=== PATIENT | female | born 1955 | race Caucasian/White ===

== ENCOUNTER 2021-04-21 06:30 | Day surgery (SDC) | payer OTHER ==
--- NOTE | 2021-04-17 15:57 | RAD REPORT ---
EXAM DESCRIPTION: Darren Beltrán (2 Views)04/17/2021 3:46 pm CLINICAL HISTORY: Preop for cardiac catheterization. Hypertension COMPARISON: 2017 FINDINGS: The lungs appear clear of acute infiltrate. The heart is normal size. Large hiatal hernia IMPRESSION: No acute abnormalities displayed
[2021-04-17 16:00] LABS: Hematocrit 40.2 % (36.0-45.0); Lymphocytes % 29.6 % (15.3-44.8); RBC Red Blood Cell Count 4.42 M/uL (3.86-4.86)
[2021-04-17 16:10] LABS: Protime INR 1.36
[2021-04-17 16:26] LABS: Potassium 4.1 mmol/L (3.5-5.1)
[2021-04-21] MEDS ORDERED: NA CHLORIDE 0.9% 500 ML ONE (06:50)
[2021-04-21] MEDS ORDERED: HEPA 1000U/500MLS 1,000 UNIT/500 ML BAG IV ONE (07:02)
[2021-04-21] MEDS ORDERED: LIDOCAINE 1% 20 ML MDV ONE (07:02)
[2021-04-21] MEDS ORDERED: FENTANYL CITR 100 MCG/2 ML ONE (07:07)
[2021-04-21] MEDS ORDERED: ATROPINE SULF 1 MG/10 ML SYR IV ONE (07:08)
[2021-04-21] MEDS ORDERED: MIDAZOLAM HCL 2 MG/2 ML INJ ONE ×2 (07:08→07:30)
[2021-04-21] MEDS ORDERED: NA CHLORIDE 0.9% 50 ML ONE (07:09)
[2021-04-21 07:21] VITALS: TEMP 97.9
[2021-04-21 12:49] VITALS: BP 126/61
[2021-04-21 13:24] VITALS: O2SAT 99
--- NOTE | 2021-04-22 07:36 | EKG ---
Test Date: 2021-04-17 Test Time: 15:21:56 Retail General Manager: CHRISTINE MEASUREMENT RESULTS: Intervals: Rate: 59 AK: 192 QRSD: 164 QT: 482 QTc: 477 [place]: P: 68 AK: 192 QRS: -66 T: 167 INTERPRETIVE STATEMENTS: Sinus bradycardia Left axis deviation Left bundle branch block Abnormal ECG Compared to ECG 09/02/2016 07:03:24 Sinus rhythm no longer present Electronically Signed On 04-22-21 07:27:14 [employer] CLERK by Rohit Stockton
== END 2021-04-21 13:25 | disposition home or self-care (01) ==
LOC: CCL 06:30
DX: I25.10 Atherosclerotic heart disease of native coronary artery without angina pectoris (principal); I35.1 Nonrheumatic aortic (valve) insufficiency; I34.0 Nonrheumatic mitral (valve) insufficiency; I48.0 Paroxysmal atrial fibrillation; I42.9 Cardiomyopathy, unspecified; I10 Essential (primary) hypertension; E78.2 Mixed hyperlipidemia; E03.9 Hypothyroidism, unspecified; Z01.810 Encounter for preprocedural cardiovascular examination; Z20.822 Contact with and (suspected) exposure to COVID-19
CPT/HCPCS: 93005; 85025; 80048; 36415; 85610; 85730; 71046; 93458; U0003; C1893; C1760; C1877; J2250; J3010; J0583; J7040; J1644

== ENCOUNTER 2023-10-31 12:41 | Day surgery (SDC) | payer OTHER ==
[2023-10-27 15:00] LABS: Absolute Eosinophils 0.3 K/uL (0-0.5); Absolute Monocytes 0.5 K/uL (0.1-1.3); Absolute Neutrophil 3.3 K/uL (1.8-8.0); Basophils % 0.7 % (0-1.3); Eosinophils % 4.7 % (0-4.4); Hematocrit 42.6 % (36.0-45.0); Lymphocytes % 32.5 % (15.3-44.8); MCH 29.9 pg (27.0-35.0); MCHC 32.9 g/dL (32.0-36.0); MCV 90.8 fL (80-100); MPV 7.8 fL (7.6-11.3); Monocytes % 8.4 % (3.3-12.3); Neutrophils % 53.7 % (41.7-73.7); Platelets 371 thou/uL (152-406); RBC Red Blood Cell Count 4.69 M/uL (3.86-4.86); Red Cell Distribution Width 15.6 % (12.1-15.2)
[2023-10-27 15:13] LABS: PT Prothrombin Time 26.2 SECONDS (9.4-12.5); Protime INR 2.4
[2023-10-27 15:14] LABS: PTT, Activated Partial Thromb 45.5 SECONDS (24.3-36.9)
--- NOTE | 2023-10-27 15:28 | RAD REPORT ---
EXAM DESCRIPTION: Darren Limon [place] (2 Views)10/27/2023 3:05 pm CLINICAL HISTORY: Preop for cardiac catheterization. Hypertension COMPARISON: 2021 FINDINGS: The lungs appear clear of acute infiltrate. The heart is normal size. Moderate hiatal hernia IMPRESSION: No acute abnormalities displayed
[2023-10-31] MEDS ORDERED: NA CHLORIDE 0.9% 500 ML ONE (12:55)
[2023-10-31] MEDS ORDERED: HEPARIN 10,000 UNIT/10 ML VIAL IV ONE (15:04)
[2023-10-31] MEDS ORDERED: LIDOCAINE 1% 20 ML MDV ONE (15:04)
[2023-10-31] MEDS ORDERED: HEPARIN 5000 UNIT/ML 1 ML VIAL ONE (15:04)
[2023-10-31] MEDS ORDERED: HEPA 1000U/500MLS 2,000 UNIT/1,000 ML BAG IV ONE (15:04)
[2023-10-31] MEDS ORDERED: VERAPAMIL HCL 10 MG/4 ML VIAL IV ONE (15:05)
[2023-10-31] MEDS ORDERED: MIDAZOLAM HCL 2 MG/2 ML INJ ONE (15:05)
[2023-10-31] MEDS ORDERED: TICAGRELOR 90 MG TABLET PO ONE (15:06)
[2023-10-31] MEDS ORDERED: FENTANYL CITR 100 MCG/2 ML ONE (15:06)
[2023-10-31] MEDS ORDERED: ASPIRIN 325 MG TAB ONE (15:07)
[2023-10-31] MEDS ORDERED: ATROPINE SULF 1 MG/10 ML SYR IV ONE (15:07)
[2023-10-31] MEDS ORDERED: CLOPIDOGREL 75 MG TABLET ONE (15:07)
[2023-10-31 16:15] VITALS: TEMP 97.9
--- NOTE | 2023-10-31 17:08 | EKG ---
Test Date: 2023-10-27 Test Time: 14:50:57 Maintenance Department Manager: LUCERO MEASUREMENT RESULTS: Intervals: Rate: 81 LA: 194 QRSD: 160 QT: 432 QTc: 501 [place]: P: 57 LA: 194 QRS: -67 T: 104 INTERPRETIVE STATEMENTS: Normal sinus rhythm Left axis deviation Left bundle branch block Abnormal ECG Compared to ECG 04/17/2021 15:21:56 Sinus bradycardia no longer present Electronically Signed On 10-31-23 17:05:34 CDT by Kei Valente
[2023-10-31 17:39] VITALS: BP 163/80; O2SAT 95
--- NOTE | 2023-10-31 21:43 | OP ---
Date of Procedure: 10/31/2023 Surgeon: CHARO DURAN Procedures Performed: 1.Selective angiogram. 2.Left heart catheterization. Indication: Unstable angina. Access: Right radial artery 6-Welsh, closed with TR band. Complications: None. Bleeding: Less than 50 mL. Anesthesia: Total sedation time was 30 minutes, used fentanyl and Versed. Description Of Procedure: After risks, benefits, and alternatives were explained, the patient agreed to the procedure and signed informed consent. The patient was brought into cardiac catheterization laboratory, prepped and draped in sterile fashion. Then, I accessed radial artery using pediatric mi cropuncture kit and placed 6-Welsh Slender sheath and took 5-Welsh [place] 4 catheter into the aortic root across the aortic valve, measured the LVEDP. Pullback did not record any gradient. Then, I en gaged the RCA, took standard views, and then the left main, took standard views, and then removed the catheter and the sheath, placed TR band with good hemostasis. Findings: 1.Left main, large and normal. 2.LAD, large and normal, distally with luminal irregularities. Normal diagonal branches. 3.Left circumflex, small vessel and normal. 4.RCA, large and dominant with proximal 30% to 40% stenosis. Rest of it is normal. 5.Normal LVEDP at 9 mmHg. Conclusions: 1.Mild nonobstructive coronary artery disease. 2.Normal LVEDP. Recommendation: Medical management. SR/MODL Voice ID: [id number] Report ID: [id number]
== END 2023-10-31 17:50 | disposition home or self-care (01) ==
LOC: CCL 12:41
PROVIDERS: ATTEND Internal Medicine
DX: I25.110 Atherosclerotic heart disease of native coronary artery with unstable angina pectoris (principal); I35.1 Nonrheumatic aortic (valve) insufficiency; I34.0 Nonrheumatic mitral (valve) insufficiency; I48.0 Paroxysmal atrial fibrillation; I11.0 Hypertensive heart disease with heart failure; I50.32 Chronic diastolic (congestive) heart failure; I42.9 Cardiomyopathy, unspecified; E78.5 Hyperlipidemia, unspecified; Z87.891 Personal history of nicotine dependence; Z79.01 Long term (current) use of anticoagulants; Z79.899 Other long term (current) drug therapy
CPT/HCPCS: 36415; 71046; 76937; 80048; 85025; 85610; 85730; 93005; 93458; 99152; C1893; J0461; J1644; J2001; J2250; J3010; J7040; Q9966

== ENCOUNTER 2023-12-28 17:16 | Emergency (ER) | payer OTHER ==
--- OUTSIDE RECORDS SUMMARY | 2023-12-28 17:22 | XMS REPORT | Continuity of Care Document ---
Author Name Unknown Address [address] [facility] [address] [place] [address] [facility] [address] [facility] [address] [place] [address] Care Team Providers Care Examination Supervisor Name Role Phone Pcp, Patient Does Not Have A Primary Care Physic marina Augusto Bishop Attending Clinician Unavailable Sonny Muniz Attending Clinician Unav ailgerard VALDIVIA_Price_Myles_ Attending Clinician Unavail able ROSENDO GIPSON Attending Clinician Unavailab Rosendo Chi MD Attending Clinician [phone] Nurse, [facility] Gu Attending Clinician Unanichole march Doctor Unassigned, [place] Attending Clinician U Oswald Donald MD Attending Clinician [phone] Sapna Obrien MD Attending Clinician [phone] SAPNA OBRIEN Attending Clinician Frank ilgerard 2, [facility] Attending Clinician Unavailable VIKTORIA BECK Attending Clinician UnavailCAMILA Velasco Attending Clinician Unavailable OSWALD ALMAZAN Attending Clinician Unavailable ONEL HALL Attending Clinician Unavail able Nurse, [facility] Immunization Attending Clinician Unavailable Gilberto STUBBSOnel Attending Clinician SHAYLEE MENON Attending Clinician Unavailisai christina Nurse, [facility] Attending Clinician Unavailable Shaylee Menon MD Attending Clinician Only, Adc Test Attending Clinician Unavailable Camila Oden MD Attending Clinician [phone] Christiano LEVIN, Silke Ayala Attending Clinician Unavaila ble Only, Ang Db Test Attending Clinician Unavailabl e Unknown, Attending Attending Clinician Unavailab Marietta Durbin Attending Clinician [phone] MARIETTA MATTSON Attending Clinician Unavailab Augusto Noriega Admitting Clinician Unavailable Physician, No Primary or Family Admitting Clinic amrina Unavailable SHEA_Price_Myles_ Admitting Clinician Unavail able ROSENDO GIPSON Admitting Clinician Unavailab Rosendo Chi MD Admitting Clinician [phone] Payers Payer Name Policy Type Policy Number Effective Date Expirati on Date Source [place]IC[place]: [employer] [id number] 2019 00:00:00 [employer] \T\ CASUALTY [id number] MEDICARE PART A \T\ B [id number] 2019 00:00:00 [employer] [id number] 2018 00:00:00 Problems Condition Name Condition Details Condition Category Status Onset Date Resolution Date Last Treatment Date Treating Clinician Comments Source Rupture of rotator cuff of right shoulder Rupture of Rotator Cuff of Right Shoulder Problem Active 2-15 00:00: 00 [facility] Trigger middle finger of right hand Trigger middle finger of right hand Disease Active 9 00:00: 00 [facility] Trigger middle finger of left hand Trigger middle finger of left hand Disease Active 3-24 00:00: 00 Overview: Formattin g of this note might be different from the original. Added automatic ally from request for surgery [id number] 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 Overweight (BMI 25.0-29.9) Overweight (BMI 25.0-29.9) Disease Active 2020-04 0-14 00:00: 00 [facility] Localized swelling, mass and lump, neck Localized swelling, mass and lump, neck Disease Active 2020-04 014 00:00: 00 [facility] Acquired trigger finger of left middle finger Acquired Trigger Finger of Left Middle Finger Problem Active 06 00:00: 00 [facility] Trigger finger of right hand Trigger Finger of Right Hand Problem Active 08-07 00:00: 00 [facility] Screening for diabetes mellitus (DM) Screening for diabetes mellitus (DM) Disease Active 06-07 00:00: 00 [facility] Senile osteoporos is Senile osteoporos is Disease Active 06-07 00:00: 00 [facility] 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 systolic and diastolic congestive heart failure Disease Active 06-03 00:00: 00 [facility] Chronic atrial fibrillati on Chronic atrial fibrillati on Disease Active 06-03 00:00: 00 [facility] Essential hypertensi on Essential hypertensi on Disease Active - 00:00: 00 [facility] Anxiety, generalize d Anxiety, generalize d Disease Active - 00:00: 00 [facility] Acquired hypothyroi dism Acquired hypothyroi dism Disease Active - 00:00: 00 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 Rotator Cuff Arthropath y of Right Shoulder Problem Active 3-24 00:00: 00 [facility] Full thickness rotator cuff tear Full Thickness Rotator Cuff Tear Problem Active 2014-04 00:00: 00 [facility] Repair of hip Repair of Hip Problem Active 2011-04 0 00:00: 00 [facility] Anemia Anemia Problem Active 2011-04 00:00: 00 [facility] Hip pain Hip Pain Problem Active 11-08 00:00: 00 [facility] Situation with explicit context Situation with Explicit Context Problem Active 12-24 00:00: 00 [facility] Allergies, Adverse Reactions, Alerts Allergy Name Allergy Type Status Severity Reaction(s) Onset Date Inactive Date Treating Clinician Comments Source LATEX DRUG INGREDI Active Rash 2022-04 0-03 00:00: 00 [facility] Latex Drug Allergy Active Rash 2022-04 0-03 00:00: 00 Topical from bandaids [facility] adhesive tape DA Active IA 8 00:00: 00 [facility] adhesive tape DA Active IA SKIN TEARS 8 00:00: 00 [facility] No Known Drug Allergie s DA Active U 04-11 00:00: 00 [facility] No Known Drug Allergie s DA Active U 04-11 00:00: 00 [facility] Latex Allergy to substanc e Active [facility] NO KNOWN ALLERGIE S Drug Class Active [facility] Social History Social Habit Start Date Stop Date Quantity Comments Source Gender [facility] SDOH Alcohol Comment [facility] Alcohol intake 2023-01-11 00:00:00 2023-01-11 00:00:00 1.14 /d [facility] History of Social function 2023-01-10 00:00:00 2023-01-10 00:00:00 [facility] Exposure to SARS-CoV-2 (event) 2022-07-16 00:00:00 2022-07-26 13:30:00 Not sure [facility] Tobacco use and exposure 2020-06-03 00:00:00 2020-06-03 00:00:00 Smokeless tobacco non-user [facility] History SDOH Alcohol Frequency 2020-06-03 00:00:00 2020-06-03 00:00:00 5 [facility] History SDOH Alcohol Std Drinks 2020-06-03 00:00:00 2020-06-03 00:00:00 1 [facility] History SDOH Alcohol Binge 2020-06-03 00:00:00 2020-06-03 00:00:00 2 [facility] Sex Assigned At 1955 00:00:00 1955 00:00:00 [facility] Smoking Status Start Date Stop Date Source Unknown if ever smoked [facility] Never smoked tobacco [facility] Medications Ordered Medication Name Filled Medication Name Start Date Stop Date Current Medication? Ordering Clinician Indication Dosage Frequency Signature (SIG) Comments Components Source LORazepam 1 mg tablet 2022-04 13:24: 46 Yes 1mg Take 1 tablet by mouth in the morning and 1 tablet in the evening. [facility] venlafaxine XR 150 mg 24 hr capsule 2022-04 13:24: 46 Yes 150mg Take 1 capsule by mouth in the morning and 1 capsule in the evening. [facility] buPROPion XL 150 mg 24 hr tablet 2022-04 13:24: 46 Yes 150mg Take 1 tablet by mouth in the morning. [facility] rivaroxaban 20 mg tablet 2022-04 13:24: 46 Yes Take by mouth daily. [facility] carvediloL 25 mg tablet 2022-04 13:24: 46 Yes 25mg Take 1 tablet by mouth in the morning and 1 tablet in the evening. Take with meals. [facility] furosemide 20 mg tablet 2022-04 13:24: 46 Yes 20mg Take 1 tablet by mouth in the morning. [facility] amiodarone 200 mg tablet 2022-04 13:24: 46 Yes 200mg Take 1 tablet by mouth in the morning. [facility] sacubitriL- valsartan (ENTRESTO) 24-26 mg tablet 2022-04 13:24: 46 Yes 1{tbl} Take 1 tablet by mouth in the morning and 1 tablet in the evening. [facility] amLODIPine 5 mg tablet 2022-04 13:24: 46 Yes 5mg Take 1 tablet by mouth in the morning. [facility] liothyronin e 5 mcg tablet 2022-04 13:24: 46 Yes 5ug Take 1 tablet by mouth in the morning. [facility] lactated ringers IV infusion 1,000 mL 2022-04 14:45: 00 Yes 1000mL at 75 mL/hr, 1,000 mL, IV Infusion, CONTINUOUS , Starting on Tue01/10/23 at 0945, Until Discontinu ed, Routine, PACU [facility] FENTanyl PF (SUBLIMAZE (PF)) injection 25 mcg 2022-04 14:39: 27 Yes 25ug 25 mcg, Slow IV Push, Q5MIN PRN, 4 doses, Starting on Tue01/10/23 at 0939, Until Discontinu ed, Routine, Pain (scale 4-6), PACU [facility] sodium chloride 0.9 % irrigation solution 2022-04 14:35: 00 01-10 14:46 :49 No PRN, Starting on Tue01/10/23 at 0935, Until Tue01/10/23 at 0946, Intra-op [facility] bupivacaine (preserv free) (SENSORCAIN E MPF) 0.25 % (2.5 mg/mL) 30 mL, lidocaine 1% (PF) (XYLOCAINE) 30 mL 2022-04 14:15: 00 01-10 14:46 :49 No PRN, Starting on Tue01/10/23 at 0915, Intra-op [facility] lactated ringers IV infusion 1,000 mL 2022-04 13:00: 00 01-10 13:12 :00 No 1000mL at 42 mL/hr, 1,000 mL, IV Infusion, ONCE, 1 dose, On Tue01/10/23 at 0800, Routine, DSU Pre-op [facility] LORazepam 1 mg tablet 2022-04 10:49: 14 Yes 1mg Take 1 tablet by mouth in the morning and 1 tablet in the evening. [facility] venlafaxine XR 150 mg 24 hr capsule 2022-04 10:49: 14 Yes 150mg Take 1 capsule by mouth in the morning and 1 capsule in the evening. [facility] buPROPion XL 150 mg 24 hr tablet 2022-04 10:49: 14 Yes 150mg Take 1 tablet by mouth in the morning. [facility] rivaroxaban 20 mg tablet 2022-04 10:49: 14 Yes Take by mouth daily. [facility] carvediloL 25 mg tablet 2022-04 10:49: 14 Yes 25mg Take 1 tablet by mouth in the morning and 1 tablet in the evening. Take with meals. [facility] furosemide 20 mg tablet 2022-04 10:49: 14 Yes 20mg Take 1 tablet by mouth in the morning. [facility] amiodarone 200 mg tablet 2022-04 10:49: 14 Yes 200mg Take 1 tablet by mouth in the morning. [facility] sacubitriL- valsartan (ENTRESTO) 24-26 mg tablet 2022-04 10:49: 14 Yes 1{tbl} Take 1 tablet by mouth in the morning and 1 tablet in the evening. [facility] amLODIPine 5 mg tablet 2022-04 10:49: 14 Yes 5mg Take 1 tablet by mouth in the morning. [facility] liothyronin e 5 mcg tablet 2022-04 10:49: 14 Yes 5ug Take 1 tablet by mouth in the morning. [facility] ondansetron 4 mg tablet 2022-04 00:00: 00 01-16 04:59 :00 No [id number] 4mg Take 1 tablet by mouth every 8 (eight) hours as needed for Nausea and Vomiting (N/V) for up to [address] [facility] traMADoL 50 mg tablet 2022-04 00:00: 00 01-14 04:59 :00 No [id number] 100mg Take 2 tablets by mouth every 6 (six) hours as needed for Pain (scale 7-10) (Can take 1-2 tablets every 6 hours as needed for pain, not to exceed 400mg in one day .) for up to 3 days. Indication s: acute pain [facility] rivaroxaban 20 mg tablet 12-27 14:49: 29 Yes Take by mouth daily. [facility] carvediloL 25 mg tablet 12-27 14:49: 29 Yes 25mg Take 1 tablet by mouth in the morning and 1 tablet in the evening. Take with meals. [facility] amiodarone 200 mg tablet 12-27 14:49: 29 Yes 200mg Take 1 tablet by mouth in the morning. [facility] LORazepam 1 mg tablet 10-18 13:17: 17 Yes 1mg Take 1 tablet by mouth in the morning and 1 tablet in the evening. [facility] venlafaxine XR 150 mg 24 hr capsule 10-18 13:17: 17 Yes 150mg Take 1 capsule by mouth daily with breakfast. [facility] buPROPion XL 150 mg 24 hr tablet 10-18 13:17: 17 Yes 150mg Take 1 tablet by mouth in the morning. [facility] furosemide 40 mg tablet 10-18 13:17: 17 Yes 40mg Take 1 tablet by mouth in the morning. [facility] sacubitriL- valsartan (ENTRESTO) 24-26 mg tablet 17 13:17: 17 Yes 1{tbl} Take 1 tablet by mouth in the morning and 1 tablet in the evening. [facility] lactated ringers IV infusion 1,000 mL 07-12 16:00: 00 Yes 1000mL at 100 mL/hr, 1,000 mL, IV Infusion, CONTINUOUS , Starting on Tue07/12/22 at 1100, Until Discontinu ed, Routine, PACU [facility] HYDROcodone -acetaminop hen (NORCO 5) 5-325 mg tablet 1 tablet 07-12 16:00: 00 07-12 15:55 :00 No 1{tbl} 1 tablet, Oral, ONCE, 1 dose, On Tue07/12/22 at 1100, Routine, PACU [facility] HYDROmorphO ne (DILAUDID) injection 0.2 mg 07-12 15:50: 09 Yes .2mg 0.2 mg, Slow IV Push, Q5MIN PRN, 10 doses, Starting on Tue07/12/22 at 1050, Until Discontinu ed, Routine, Pain (scale 7-10), PACU
Us e approved by (Faculty): PACU USE -ANESTHESI A SERVICE-HY DROMORPHON E INJECTIONS [facility] FENTanyl PF (SUBLIMAZE (PF)) injection 25 mcg 07-12 15:50: 09 Yes 25ug 25 mcg, Slow IV Push, Q5MIN PRN, 4 doses, Starting on Tue07/12/22 at 1050, Until Discontinu ed, Routine, Pain (scale 4-6), PACU [facility] ondansetron (ZOFRAN (PF)) injection 4 mg 07-12 15:50: 09 Yes 4mg 4 mg, Slow IV Push, PRN, 1 dose, Starting on Tue07/12/22 at 1050, Until Discontinu ed, Routine, Nausea and Vomiting (N/V), PACU [facility] sodium chloride 0.9 % irrigation solution 07-12 15:03: 00 07-12 16:02 :35 No PRN, Starting on Tue07/12/22 at 1003, Until Tue07/12/22 at 1102, Intra-op [facility] bupivacaine (preserv free) (SENSORCAIN E MPF) 0.25 % (2.5 mg/mL) 3 mL, lidocaine 1% (PF) (XYLOCAINE) 7 mL 07-12 15:00: 00 07-12 16:02 :35 No PRN, Starting on Tue07/12/22 at 1000, Intra-op [facility] lactated ringers IV infusion 1,000 mL 07-12 14:30: 00 07-12 14:36 :00 No 1000mL at 42 mL/hr, 1,000 mL, IV Infusion, ONCE, 1 dose, On Tue07/12/22 at 0930, Routine, DSU Pre-op [facility] LORazepam 1 mg tablet 07-12 11:41: 51 Yes 1mg Take 1 tablet by mouth in the morning and 1 tablet in the evening. [facility] venlafaxine XR 150 mg 24 hr capsule 07-12 11:41: 51 Yes 150mg Take 1 capsule by mouth daily with breakfast. [facility] buPROPion XL 150 mg 24 hr tablet 07-12 11:41: 51 Yes 150mg Take 1 tablet by mouth in the morning. [facility] rivaroxaban 20 mg tablet 07-12 11:41: 51 Yes Take by mouth daily. [facility] carvediloL 25 mg tablet 07-12 11:41: 51 Yes 25mg Take 1 tablet by mouth in the morning and 1 tablet in the evening. Take with meals. [facility] furosemide 40 mg tablet 07-12 11:41: 51 Yes 40mg Take 1 tablet by mouth in the morning. [facility] amiodarone 200 mg tablet 07-12 11:41: 51 Yes 200mg Take 1 tablet by mouth in the morning. [facility] sacubitriL- valsartan (ENTRESTO) 24-26 mg tablet 07-12 11:41: 51 Yes 1{tbl} Take 1 tablet by mouth in the morning and 1 tablet in the evening. [facility] traMADoL 50 mg tablet 07-12 00:00: 00 01-10 00:00 :00 No [id number] 50mg Take 1 tablet by mouth every 6 (six) hours as needed for Pain (scale 4-6) for up to 10 doses. Indication s: acute pain [facility] triamcinolo ne acetonide (KENALOG) injection 10 mg 06-01 02:30: 00 06-01 01:47 :00 No [id number] 10mg [facility] LORazepam 1 mg tablet 2021-04 13:52: 32 Yes 1mg Take 1 mg by mouth 2 (two) times daily. [facility] venlafaxine XR 150 mg 24 hr capsule 2021-04 13:52: 32 Yes 150mg Take 150 mg by mouth daily with breakfast. [facility] buPROPion XL 150 mg 24 hr tablet 2021-04 13:52: 32 Yes 150mg Take 150 mg by mouth daily. [facility] rivaroxaban 20 mg tablet 2021-04 13:52: 32 Yes Take by mouth daily. [facility] carvediloL 25 mg tablet 2021-04 13:52: 32 Yes 25mg Take 25 mg by mouth 2 (two) times daily with meals. [facility] furosemide 40 mg tablet 2021-04 13:52: 32 Yes 40mg Take 40 mg by mouth daily. [facility] amiodarone 200 mg tablet 2021-04 13:52: 32 Yes 200mg Take 200 mg by mouth daily. [facility] sacubitriL- valsartan (ENTRESTO) 24-26 mg tablet 2021-04 13:52: 32 Yes 1{tbl} Take 1 tablet by mouth 2 (two) times daily. [facility] levothyroxi ne 100 mcg tablet 09-14 00:00: 00 Yes [id number] 100ug Take 1 tablet by mouth every morning. [facility] venlafaxine XR (EFFEXOR XR) 150 mg 24 hr capsule 06-05 15:25: 15 Yes 150mg Take 150 mg by mouth daily with breakfast. [facility] sacubitriL- valsartan (ENTRESTO) 24-26 mg tablet 06-05 15:25: 14 Yes 1{tbl} Take 1 tablet by mouth 2 (two) times daily. [facility] rivaroxaban (XARELTO) 20 mg tablet 06-05 15:25: 14 Yes Take by mouth daily. [facility] LORazepam 1 mg tablet 06-05 15:25: 12 Yes 1mg Take 1 mg by mouth 2 (two) times daily. [facility] furosemide (LASIX) 40 mg tablet 06-05 15:25: 10 Yes 40mg Take 40 mg by mouth daily. [facility] carvediloL 25 mg tablet 06-05 15:25: 08 Yes 25mg Take 25 mg by mouth 2 (two) times daily with meals. [facility] buPROPion XL 150 mg 24 hr tablet 06-05 15:25: 06 Yes 150mg Take 150 mg by mouth daily. [facility] amiodarone 200 mg tablet 06-05 15:25: 00 Yes 200mg Take 200 mg by mouth daily. [facility] Nitrofurant oin&Nit. Macrocryst (MACROBID) 100 mg capsule 2020-04 00:00: 00 06-05 00:00 :00 No [id number] 100mg Take 1 capsule by mouth 2 (two) times daily. [facility] fluticasone propionate 50 mcg/actuati on nasal spray 2020-04 00:00: 00 06-05 00:00 :00 No [id number] 2{spray } Use 2 Sprays in each nostril daily. [facility] levothyroxi ne 100 mcg tablet 2020-04 00:00: 00 09-14 00:00 :00 No [id number] 9106 100ug Take 1 tablet by mouth every morning. [facility] Effexor XR 150 mg capsule,ext ended release RX by other Effexor XR 150 mg capsule,ext ended release RX by other MD [facility] Effexor XR 150 mg capsule,ex tended release RX by other MD [facility] ferrous gluconate 236 mg (27 mg iron) tablet RX by other ferrous gluconate 236 mg (27 mg iron) tablet RX by other No ferrous gluconate 236 mg (27 mg iron) tablet RX by other MD [facility] levothyroxi ne 112 mcg tablet RX by other levothyroxi ne 112 mcg tablet RX by other No levothyrox ine 112 mcg tablet RX by other MD [facility] losartan 100 mg-hydrochl orothiazide 25 mg tablet RX by other losartan 100 mg-hydrochl orothiazide 25 mg tablet RX by other MD [facility] losartan 100 mg-hydroch lorothiazi de 25 mg tablet RX by other MD [facility] omeprazole 20 mg tablet,butch yed release RX by other omeprazole 20 mg tablet,butch yed release RX by other MD [facility] omeprazole 20 mg tablet,del ayed release RX by other MD [facility] Effexor XR 150 mg capsule,ext ended release RX by other Effexor XR 150 mg capsule,ext ended release RX by other MD [facility] Effexor XR 150 mg capsule,ex tended release RX by other MD [facility] ferrous gluconate 236 mg (27 mg iron) tablet RX by other ferrous gluconate 236 mg (27 mg iron) tablet RX by other MD [facility] ferrous gluconate 236 mg (27 mg iron) tablet RX by other MD [facility] levothyroxi ne 112 mcg tablet RX by other levothyroxi ne 112 mcg tablet RX by other No levothyrox ine 112 mcg tablet RX by other MD [facility] losartan 100 mg-hydrochl orothiazide 25 mg tablet RX by other losartan 100 mg-hydrochl orothiazide 25 mg tablet RX by other MD No losartan 100 mg-hydroch lorothiazi de 25 mg tablet RX by other MD [facility] omeprazole 20 mg tablet,butch yed release RX by other omeprazole 20 mg tablet,butch yed release RX by other No omeprazole 20 mg tablet,del ayed release RX by other MD [facility] amlodipine 5 mg tablet RX by other amlodipine 5 mg tablet RX by other No amlodipine 5 mg tablet RX by other MD [facility] Effexor XR 150 mg capsule,ext ended release RX by other Effexor XR 150 mg capsule,ext ended release RX by other No Effexor XR 150 mg capsule,ex tended release RX by other MD [facility] ferrous gluconate 236 mg (27 mg iron) tablet RX by other ferrous gluconate 236 mg (27 mg iron) tablet RX by other No ferrous gluconate 236 mg (27 mg iron) tablet RX by other MD [facility] levothyroxi ne 112 mcg tablet RX by other levothyroxi ne 112 mcg tablet RX by other No levothyrox ine 112 mcg tablet RX by other MD [facility] losartan 100 mg-hydrochl orothiazide 25 mg tablet RX by other losartan 100 mg-hydrochl orothiazide 25 mg tablet RX by other No losartan 100 mg-hydroch lorothiazi de 25 mg tablet RX by other MD [facility] omeprazole 20 mg tablet,butch yed release RX by other omeprazole 20 mg tablet,butch yed release RX by other No omeprazole 20 mg tablet,del ayed release RX by other MD [facility] Immunizations Ordered Immunization Name Filled Immunization Name Date Status Comments Source SARS-COV-2 COVID-19 MODERNA 0.25ML BOOSTER VACCINE 2021-02-06 00:00:00 Completed [facility] SARS-COV-2 COVID-19 MODERNA 0.25ML BOOSTER VACCINE 2021-02-06 00:00:00 Completed [facility] SARS-COV-2 COVID-19 MODERNA 0.25ML BOOSTER VACCINE 2021-02-06 00:00:00 Completed [facility] SARS-COV-2 COVID-19 MODERNA 0.25ML BOOSTER VACCINE 2021-02-06 00:00:00 Completed [facility] SARS-COV-2 COVID-19 MODERNA 0.25ML BOOSTER VACCINE 2021-02-06 00:00:00 Completed [facility] SARS-COV-2 COVID-19 MODERNA 0.25ML BOOSTER VACCINE 2021-02-06 00:00:00 Completed [facility] SARS-COV-2 COVID-19 MODERNA 0.25ML BOOSTER VACCINE 2021-02-06 00:00:00 Completed [facility] SARS-COV-2 COVID-19 MODERNA 0.25ML BOOSTER VACCINE 2021-02-06 00:00:00 Completed [facility] SARS-COV-2 COVID-19 MODERNA 0.25ML BOOSTER VACCINE 2021-02-06 00:00:00 Completed [facility] SARS-COV-2 COVID-19 MODERNA 0.25ML BOOSTER VACCINE 2021-02-06 00:00:00 Completed [facility] SARS-COV-2 COVID-19 MODERNA 0.25ML BOOSTER VACCINE 2021-02-06 00:00:00 Completed [facility] SARS-COV-2 COVID-19 MODERNA 0.25ML BOOSTER VACCINE 2021-02-06 00:00:00 Completed [facility] SARS-COV-2 COVID-19 MODERNA 0.25ML BOOSTER VACCINE 2021-02-06 00:00:00 Completed [facility] SARS-COV-2 COVID-19 MODERNA 0.25ML BOOSTER VACCINE 2021-02-06 00:00:00 Completed [facility] SARS-COV-2 COVID-19 MODERNA 0.25ML BOOSTER VACCINE 2021-02-06 00:00:00 Completed [facility] SARS-COV-2 COVID-19 MODERNA 0.25ML BOOSTER VACCINE 2021-02-06 00:00:00 Completed [facility] SARS-COV-2 COVID-19 MODERNA 0.25ML BOOSTER VACCINE 2021-02-06 00:00:00 Completed [facility] SARS-COV-2 COVID-19 MODERNA 0.25ML BOOSTER VACCINE 2021-02-06 00:00:00 Completed [facility] SARS-COV-2 COVID-19 MODERNA 0.25ML BOOSTER VACCINE 2021-02-06 00:00:00 Completed [facility] SARS-COV-2 COVID-19 MODERNA 0.25ML BOOSTER VACCINE 2021-02-06 00:00:00 Completed [facility] SARS-COV-2 COVID-19 MODERNA 0.25ML BOOSTER VACCINE 2021-02-06 00:00:00 Completed [facility] SARS-COV-2 COVID-19 MODERNA 0.25ML BOOSTER VACCINE 2021-02-06 00:00:00 Completed [facility] SARS-COV-2 COVID-19 MODERNA 0.25ML BOOSTER VACCINE 2021-02-06 00:00:00 Completed [facility] SARS-COV-2 COVID-19 MODERNA 0.25ML BOOSTER VACCINE 2021-02-06 00:00:00 Completed [facility] SARS-COV-2 COVID-19 MODERNA 0.25ML BOOSTER VACCINE 2021-02-06 00:00:00 Completed [facility] SARS-COV-2 COVID-19 MODERNA 0.25ML BOOSTER VACCINE 2021-02-06 00:00:00 Completed [facility] SARS-COV-2 COVID-19 MODERNA 0.25ML BOOSTER VACCINE 2021-02-06 00:00:00 Completed [facility] SARS-COV-2 COVID-19 MODERNA 0.25ML BOOSTER VACCINE 2021-02-06 00:00:00 Completed [facility] SARS-COV-2 COVID-19 MODERNA 0.25ML BOOSTER VACCINE 2021-02-06 00:00:00 Completed [facility] SARS-COV-2 COVID-19 MODERNA 0.25ML BOOSTER VACCINE 2021-02-06 00:00:00 Completed [facility] SARS-COV-2 COVID-19 MODERNA 0.25ML BOOSTER VACCINE 2021-02-06 00:00:00 Completed [facility] SARS-COV-2 COVID-19 MODERNA 0.25ML BOOSTER VACCINE 2021-02-06 00:00:00 Completed [facility] SARS-COV-2 COVID-19 MODERNA 0.25ML BOOSTER VACCINE 2021-02-06 00:00:00 Completed [facility] SARS-COV-2 COVID-19 MODERNA BOOSTER VACCINE 2021-02-06 00:00:00 Completed [facility] SARS-COV-2 COVID-19 MODERNA BOOSTER VACCINE 2021-02-06 00:00:00 Completed [facility] SARS-COV-2 COVID-19 MODERNA 0.25ML BOOSTER VACCINE 2021-02-06 00:00:00 Completed [facility] SARS-COV-2 COVID-19 MODERNA 0.25ML BOOSTER VACCINE 2021-02-06 00:00:00 Completed [facility] SARS-COV-2 COVID-19 MODERNA 0.25ML BOOSTER VACCINE 2021-02-06 00:00:00 Completed [facility] SARS-COV-2 COVID-19 MODERNA 0.25ML BOOSTER VACCINE 2021-02-06 00:00:00 Completed [facility] Influenza High Dose 2021-01-01 00:00:00 Completed [facility] Influenza High Dose 2021-01-01 00:00:00 Completed [facility] Influenza High Dose 2021-01-01 00:00:00 Completed [facility] Influenza High Dose 2021-01-01 00:00:00 Completed [facility] Influenza High Dose 2021-01-01 00:00:00 Completed [facility] Influenza High Dose 2021-01-01 00:00:00 Completed [facility] Influenza High Dose 2021-01-01 00:00:00 Completed [facility] Influenza High Dose 2021-01-01 00:00:00 Completed [facility] Influenza High Dose 2021-01-01 00:00:00 Completed [facility] Influenza High Dose 2021-01-01 00:00:00 Completed [facility] Influenza High Dose 2021-01-01 00:00:00 Completed [facility] Influenza High Dose 2021-01-01 00:00:00 Completed [facility] Influenza High Dose 2021-01-01 00:00:00 Completed [facility] Influenza High Dose 2021-01-01 00:00:00 Completed [facility] Influenza High Dose 2021-01-01 00:00:00 Completed [facility] Influenza High Dose 2021-01-01 00:00:00 Completed [facility] Influenza High Dose 2021-01-01 00:00:00 Completed [facility] Influenza High Dose 2021-01-01 00:00:00 Completed [facility] Influenza High Dose 2021-01-01 00:00:00 Completed [facility] Influenza High Dose 2021-01-01 00:00:00 Completed [facility] Influenza High Dose 2021-01-01 00:00:00 Completed [facility] Influenza High Dose 2021-01-01 00:00:00 Completed [facility] Influenza High Dose 2021-01-01 00:00:00 Completed [facility] Influenza High Dose 2021-01-01 00:00:00 Completed [facility] Influenza High Dose 2021-01-01 00:00:00 Completed [facility] Influenza High Dose 2021-01-01 00:00:00 Completed [facility] Influenza High Dose 2021-01-01 00:00:00 Completed [facility] Influenza High Dose 2021-01-01 00:00:00 Completed [facility] Influenza High Dose 2021-01-01 00:00:00 Completed [facility] Influenza High Dose 2021-01-01 00:00:00 Completed [facility] Influenza High Dose 2021-01-01 00:00:00 Completed [facility] Influenza High Dose 2021-01-01 00:00:00 Completed [facility] Influenza High Dose 2021-01-01 00:00:00 Completed [facility] Influenza High Dose 2021-01-01 00:00:00 Completed [facility] Influenza High Dose 2021-01-01 00:00:00 Completed [facility] Influenza High Dose 2021-01-01 00:00:00 Completed [facility] Influenza High Dose 2021-01-01 00:00:00 Completed [facility] Influenza High Dose 2021-01-01 00:00:00 Completed [facility] Influenza High Dose 2021-01-01 00:00:00 Completed [facility] SARS-COV-2 COVID-19 MODERNA 12+ YRS VACCINE 2020-06-23 00:00:00 Completed [facility] SARS-COV-2 COVID-19 MODERNA 12+ YRS VACCINE 2020-06-23 00:00:00 Completed [facility] SARS-COV-2 COVID-19 MODERNA 12+ YRS VACCINE 2020-06-23 00:00:00 Completed [facility] SARS-COV-2 COVID-19 MODERNA 12+ YRS VACCINE 2020-06-23 00:00:00 Completed [facility] SARS-COV-2 COVID-19 MODERNA 12+ YRS VACCINE 2020-06-23 00:00:00 Completed [facility] SARS-COV-2 COVID-19 MODERNA 12+ YRS VACCINE 2020-06-23 00:00:00 Completed [facility] SARS-COV-2 COVID-19 MODERNA 12+ YRS VACCINE 2020-06-23 00:00:00 Completed [facility] SARS-COV-2 COVID-19 MODERNA 12+ YRS VACCINE 2020-06-23 00:00:00 Completed [facility] SARS-COV-2 COVID-19 MODERNA 12+ YRS VACCINE 2020-06-23 00:00:00 Completed [facility] SARS-COV-2 COVID-19 MODERNA 12+ YRS VACCINE 2020-06-23 00:00:00 Completed [facility] SARS-COV-2 COVID-19 MODERNA 12+ YRS VACCINE 2020-06-23 00:00:00 Completed [facility] SARS-COV-2 COVID-19 MODERNA 12+ YRS VACCINE 2020-06-23 00:00:00 Completed [facility] SARS-COV-2 COVID-19 MODERNA 12+ YRS VACCINE 2020-06-23 00:00:00 Completed [facility] SARS-COV-2 COVID-19 MODERNA 12+ YRS VACCINE 2020-06-23 00:00:00 Completed [facility] SARS-COV-2 COVID-19 MODERNA 12+ YRS VACCINE 2020-06-23 00:00:00 Completed [facility] SARS-COV-2 COVID-19 MODERNA 12+ YRS VACCINE 2020-06-23 00:00:00 Completed [facility] SARS-COV-2 COVID-19 MODERNA 12+ YRS VACCINE 2020-06-23 00:00:00 Completed [facility] SARS-COV-2 COVID-19 MODERNA 12+ YRS VACCINE 2020-06-23 00:00:00 Completed [facility] SARS-COV-2 COVID-19 MODERNA 12+ YRS VACCINE 2020-06-23 00:00:00 Completed [facility] SARS-COV-2 COVID-19 MODERNA 12+ YRS VACCINE 2020-06-23 00:00:00 Completed [facility] SARS-COV-2 COVID-19 MODERNA 12+ YRS VACCINE 2020-06-23 00:00:00 Completed [facility] SARS-COV-2 COVID-19 MODERNA 12+ YRS VACCINE 2020-06-23 00:00:00 Completed [facility] SARS-COV-2 COVID-19 MODERNA 12+ YRS VACCINE 2020-06-23 00:00:00 Completed [facility] SARS-COV-2 COVID-19 MODERNA 12+ YRS VACCINE 2020-06-23 00:00:00 Completed [facility] SARS-COV-2 COVID-19 MODERNA 12+ YRS VACCINE 2020-06-23 00:00:00 Completed [facility] SARS-COV-2 COVID-19 MODERNA 12+ YRS VACCINE 2020-06-23 00:00:00 Completed [facility] SARS-COV-2 COVID-19 MODERNA 12+ YRS VACCINE 2020-06-23 00:00:00 Completed [facility] SARS-COV-2 COVID-19 MODERNA 12+ YRS VACCINE 2020-06-23 00:00:00 Completed [facility] SARS-COV-2 COVID-19 MODERNA 12+ YRS VACCINE 2020-06-23 00:00:00 Completed [facility] SARS-COV-2 COVID-19 MODERNA 12+ YRS VACCINE 2020-06-23 00:00:00 Completed [facility] SARS-COV-2 COVID-19 MODERNA 12+ YRS VACCINE 2020-06-23 00:00:00 Completed [facility] SARS-COV-2 COVID-19 MODERNA 12+ YRS VACCINE 2020-06-23 00:00:00 Completed [facility] SARS-COV-2 COVID-19 MODERNA 12+ YRS VACCINE 2020-06-23 00:00:00 Completed [facility] SARS-COV-2 COVID-19 MODERNA VACCINE 2020-06-23 00:00:00 Completed [facility] SARS-COV-2 COVID-19 MODERNA VACCINE 2020-06-23 00:00:00 Completed [facility] SARS-COV-2 COVID-19 MODERNA VACCINE 2020-06-23 00:00:00 Completed [facility] SARS-COV-2 COVID-19 MODERNA VACCINE 2020-06-23 00:00:00 Completed [facility] SARS-COV-2 COVID-19 MODERNA 12+ YRS VACCINE 2020-06-23 00:00:00 Completed [facility] SARS-COV-2 COVID-19 MODERNA 12+ YRS VACCINE 2020-06-23 00:00:00 Completed [facility] SARS-COV-2 COVID-19 MODERNA 12+ YRS VACCINE 2020-05-28 00:00:00 Completed [facility] SARS-COV-2 COVID-19 MODERNA 12+ YRS VACCINE 2020-05-28 00:00:00 Completed [facility] SARS-COV-2 COVID-19 MODERNA 12+ YRS VACCINE 2020-05-28 00:00:00 Completed [facility] SARS-COV-2 COVID-19 MODERNA 12+ YRS VACCINE 2020-05-28 00:00:00 Completed [facility] SARS-COV-2 COVID-19 MODERNA 12+ YRS VACCINE 2020-05-28 00:00:00 Completed [facility] SARS-COV-2 COVID-19 MODERNA 12+ YRS VACCINE 2020-05-28 00:00:00 Completed [facility] SARS-COV-2 COVID-19 MODERNA 12+ YRS VACCINE 2020-05-28 00:00:00 Completed [facility] SARS-COV-2 COVID-19 MODERNA 12+ YRS VACCINE 2020-05-28 00:00:00 Completed [facility] SARS-COV-2 COVID-19 MODERNA 12+ YRS VACCINE 2020-05-28 00:00:00 Completed [facility] SARS-COV-2 COVID-19 MODERNA 12+ YRS VACCINE 2020-05-28 00:00:00 Completed [facility] SARS-COV-2 COVID-19 MODERNA 12+ YRS VACCINE 2020-05-28 00:00:00 Completed [facility] SARS-COV-2 COVID-19 MODERNA 12+ YRS VACCINE 2020-05-28 00:00:00 Completed [facility] SARS-COV-2 COVID-19 MODERNA 12+ YRS VACCINE 2020-05-28 00:00:00 Completed [facility] SARS-COV-2 COVID-19 MODERNA 12+ YRS VACCINE 2020-05-28 00:00:00 Completed [facility] SARS-COV-2 COVID-19 MODERNA 12+ YRS VACCINE 2020-05-28 00:00:00 Completed [facility] SARS-COV-2 COVID-19 MODERNA 12+ YRS VACCINE 2020-05-28 00:00:00 Completed [facility] SARS-COV-2 COVID-19 MODERNA 12+ YRS VACCINE 2020-05-28 00:00:00 Completed [facility] SARS-COV-2 COVID-19 MODERNA 12+ YRS VACCINE 2020-05-28 00:00:00 Completed [facility] SARS-COV-2 COVID-19 MODERNA 12+ YRS VACCINE 2020-05-28 00:00:00 Completed [facility] SARS-COV-2 COVID-19 MODERNA 12+ YRS VACCINE 2020-05-28 00:00:00 Completed [facility] SARS-COV-2 COVID-19 MODERNA 12+ YRS VACCINE 2020-05-28 00:00:00 Completed [facility] SARS-COV-2 COVID-19 MODERNA 12+ YRS VACCINE 2020-05-28 00:00:00 Completed [facility] SARS-COV-2 COVID-19 MODERNA 12+ YRS VACCINE 2020-05-28 00:00:00 Completed [facility] SARS-COV-2 COVID-19 MODERNA 12+ YRS VACCINE 2020-05-28 00:00:00 Completed [facility] SARS-COV-2 COVID-19 MODERNA 12+ YRS VACCINE 2020-05-28 00:00:00 Completed [facility] SARS-COV-2 COVID-19 MODERNA 12+ YRS VACCINE 2020-05-28 00:00:00 Completed [facility] SARS-COV-2 COVID-19 MODERNA 12+ YRS VACCINE 2020-05-28 00:00:00 Completed [facility] SARS-COV-2 COVID-19 MODERNA 12+ YRS VACCINE 2020-05-28 00:00:00 Completed [facility] SARS-COV-2 COVID-19 MODERNA 12+ YRS VACCINE 2020-05-28 00:00:00 Completed [facility] SARS-COV-2 COVID-19 MODERNA 12+ YRS VACCINE 2020-05-28 00:00:00 Completed [facility] SARS-COV-2 COVID-19 MODERNA 12+ YRS VACCINE 2020-05-28 00:00:00 Completed [facility] SARS-COV-2 COVID-19 MODERNA 12+ YRS VACCINE 2020-05-28 00:00:00 Completed [facility] SARS-COV-2 COVID-19 MODERNA 12+ YRS VACCINE 2020-05-28 00:00:00 Completed [facility] SARS-COV-2 COVID-19 MODERNA VACCINE 2020-05-28 00:00:00 Completed [facility] SARS-COV-2 COVID-19 MODERNA VACCINE 2020-05-28 00:00:00 Completed [facility] SARS-COV-2 COVID-19 MODERNA VACCINE 2020-05-28 00:00:00 Completed [facility] SARS-COV-2 COVID-19 MODERNA VACCINE 2020-05-28 00:00:00 Completed [facility] SARS-COV-2 COVID-19 MODERNA 12+ YRS VACCINE 2020-05-28 00:00:00 Completed [facility] SARS-COV-2 COVID-19 MODERNA 12+ YRS VACCINE 2020-05-28 00:00:00 Completed [facility] SARS-COV-2 COVID-19 MODERNA 12+ YRS VACCINE 2020-05-27 00:00:00 Completed [facility] SARS-COV-2 COVID-19 MODERNA 12+ YRS VACCINE 2020-05-27 00:00:00 Completed [facility] SARS-COV-2 COVID-19 MODERNA 12+ YRS VACCINE 2020-05-27 00:00:00 Completed [facility] SARS-COV-2 COVID-19 MODERNA 12+ YRS VACCINE 2020-05-27 00:00:00 Completed [facility] SARS-COV-2 COVID-19 MODERNA 12+ YRS VACCINE 2020-05-27 00:00:00 Completed [facility] SARS-COV-2 COVID-19 MODERNA 12+ YRS VACCINE 2020-05-27 00:00:00 Completed [facility] SARS-COV-2 COVID-19 MODERNA 12+ YRS VACCINE 2020-05-27 00:00:00 Completed [facility] SARS-COV-2 COVID-19 MODERNA VACCINE 2020-05-27 00:00:00 Completed [facility] SARS-COV-2 COVID-19 MODERNA VACCINE 2020-05-27 00:00:00 Completed [facility] SARS-COV-2 COVID-19 MODERNA VACCINE 2020-05-27 00:00:00 Completed [facility] SARS-COV-2 COVID-19 MODERNA VACCINE 2020-05-27 00:00:00 Completed [facility] SARS-COV-2 COVID-19 MODERNA 12+ YRS VACCINE 2020-05-27 00:00:00 Completed [facility] SARS-COV-2 COVID-19 MODERNA 12+ YRS VACCINE 2020-05-27 00:00:00 Completed [facility] SARS-COV-2 COVID-19 MODERNA 12+ YRS VACCINE 2020-05-27 00:00:00 Completed [facility] SARS-COV-2 COVID-19 MODERNA 12+ YRS VACCINE 2020-05-27 00:00:00 Completed [facility] SARS-COV-2 COVID-19 MODERNA 12+ YRS VACCINE 2020-05-27 00:00:00 Completed [facility] SARS-COV-2 COVID-19 MODERNA 12+ YRS VACCINE 2020-05-27 00:00:00 Completed [facility] SARS-COV-2 COVID-19 MODERNA 12+ YRS VACCINE 2020-05-27 00:00:00 Completed [facility] SARS-COV-2 COVID-19 MODERNA 12+ YRS VACCINE 2020-05-27 00:00:00 Completed [facility] SARS-COV-2 COVID-19 MODERNA 12+ YRS VACCINE 2020-05-27 00:00:00 Completed [facility] SARS-COV-2 COVID-19 MODERNA 12+ YRS VACCINE 2020-05-27 00:00:00 Completed [facility] SARS-COV-2 COVID-19 MODERNA 12+ YRS VACCINE 2020-05-27 00:00:00 Completed [facility] SARS-COV-2 COVID-19 MODERNA 12+ YRS VACCINE 2020-05-27 00:00:00 Completed [facility] SARS-COV-2 COVID-19 MODERNA 12+ YRS VACCINE 2020-05-27 00:00:00 Completed [facility] SARS-COV-2 COVID-19 MODERNA 12+ YRS VACCINE 2020-05-27 00:00:00 Completed [facility] SARS-COV-2 COVID-19 MODERNA 12+ YRS VACCINE 2020-05-27 00:00:00 Completed [facility] SARS-COV-2 COVID-19 MODERNA 12+ YRS VACCINE 2020-05-27 00:00:00 Completed [facility] SARS-COV-2 COVID-19 MODERNA 12+ YRS VACCINE 2020-05-27 00:00:00 Completed [facility] SARS-COV-2 COVID-19 MODERNA 12+ YRS VACCINE 2020-05-27 00:00:00 Completed [facility] SARS-COV-2 COVID-19 MODERNA 12+ YRS VACCINE 2020-05-27 00:00:00 Completed [facility] SARS-COV-2 COVID-19 MODERNA 12+ YRS VACCINE 2020-05-27 00:00:00 Completed [facility] SARS-COV-2 COVID-19 MODERNA 12+ YRS VACCINE 2020-05-27 00:00:00 Completed [facility] SARS-COV-2 COVID-19 MODERNA 12+ YRS VACCINE 2020-05-27 00:00:00 Completed [facility] SARS-COV-2 COVID-19 MODERNA 12+ YRS VACCINE 2020-05-27 00:00:00 Completed [facility] SARS-COV-2 COVID-19 MODERNA 12+ YRS VACCINE 2020-05-27 00:00:00 Completed [facility] SARS-COV-2 COVID-19 MODERNA 12+ YRS VACCINE 2020-05-27 00:00:00 Completed [facility] SARS-COV-2 COVID-19 MODERNA 12+ YRS VACCINE 2020-05-27 00:00:00 Completed [facility] SARS-COV-2 COVID-19 MODERNA 12+ YRS VACCINE 2020-05-27 00:00:00 Completed [facility] SARS-COV-2 COVID-19 MODERNA 12+ YRS VACCINE 2020-05-27 00:00:00 Completed [facility] Pneumococcal Polysaccharide, PPSV23 (PNEUMOVAX) 2020-05-13 00:00:00 Completed [facility] Pneumococcal Polysaccharide, PPSV23 (PNEUMOVAX) 2020-05-13 00:00:00 Completed [facility] Pneumococcal Polysaccharide, PPSV23 (PNEUMOVAX) 2020-05-13 00:00:00 Completed [facility] Pneumococcal Polysaccharide, PPSV23 (PNEUMOVAX) 2020-05-13 00:00:00 Completed [facility] Pneumococcal Polysaccharide, PPSV23 (PNEUMOVAX) 2020-05-13 00:00:00 Completed [facility] Pneumococcal Polysaccharide, PPSV23 (PNEUMOVAX) 2020-05-13 00:00:00 Completed [facility] Pneumococcal Polysaccharide, PPSV23 (PNEUMOVAX) 2020-05-13 00:00:00 Completed [facility] Pneumococcal Polysaccharide, PPSV23 (PNEUMOVAX) 2020-05-13 00:00:00 Completed [facility] Pneumococcal Polysaccharide, PPSV23 (PNEUMOVAX) 2020-05-13 00:00:00 Completed [facility] Pneumococcal Polysaccharide, PPSV23 (PNEUMOVAX) 2020-05-13 00:00:00 Completed [facility] Pneumococcal Polysaccharide, PPSV23 (PNEUMOVAX) 2020-05-13 00:00:00 Completed [facility] Pneumococcal Polysaccharide, PPSV23 (PNEUMOVAX) 2020-05-13 00:00:00 Completed [facility] Pneumococcal Polysaccharide, PPSV23 (PNEUMOVAX) 2020-05-13 00:00:00 Completed [facility] Pneumococcal Polysaccharide, PPSV23 (PNEUMOVAX) 2020-05-13 00:00:00 Completed [facility] Pneumococcal Polysaccharide, PPSV23 (PNEUMOVAX) 2020-05-13 00:00:00 Completed [facility] Pneumococcal Polysaccharide, PPSV23 (PNEUMOVAX) 2020-05-13 00:00:00 Completed [facility] Pneumococcal Polysaccharide, PPSV23 (PNEUMOVAX) 2020-05-13 00:00:00 Completed [facility] Pneumococcal Polysaccharide, PPSV23 (PNEUMOVAX) 2020-05-13 00:00:00 Completed [facility] Pneumococcal Polysaccharide, PPSV23 (PNEUMOVAX) 2020-05-13 00:00:00 Completed [facility] Pneumococcal Polysaccharide, PPSV23 (PNEUMOVAX) 2020-05-13 00:00:00 Completed [facility] Pneumococcal Polysaccharide, PPSV23 (PNEUMOVAX) 2020-05-13 00:00:00 Completed [facility] Pneumococcal Polysaccharide, PPSV23 (PNEUMOVAX) 2020-05-13 00:00:00 Completed [facility] Pneumococcal Polysaccharide, PPSV23 (PNEUMOVAX) 2020-05-13 00:00:00 Completed [facility] Pneumococcal Polysaccharide, PPSV23 (PNEUMOVAX) 2020-05-13 00:00:00 Completed [facility] Pneumococcal Polysaccharide, PPSV23 (PNEUMOVAX) 2020-05-13 00:00:00 Completed [facility] Pneumococcal Polysaccharide, PPSV23 (PNEUMOVAX) 2020-05-13 00:00:00 Completed [facility] Pneumococcal Polysaccharide, PPSV23 (PNEUMOVAX) 2020-05-13 00:00:00 Completed [facility] Pneumococcal Polysaccharide, PPSV23 (PNEUMOVAX) 2020-05-13 00:00:00 Completed [facility] Pneumococcal Polysaccharide, PPSV23 (PNEUMOVAX) 2020-05-13 00:00:00 Completed [facility] Pneumococcal Polysaccharide, PPSV23 (PNEUMOVAX) 2020-05-13 00:00:00 Completed [facility] Pneumococcal Polysaccharide, PPSV23 (PNEUMOVAX) 2020-05-13 00:00:00 Completed [facility] Pneumococcal Polysaccharide, PPSV23 (PNEUMOVAX) 2020-05-13 00:00:00 Completed [facility] Pneumococcal Polysaccharide, PPSV23 (PNEUMOVAX) 2020-05-13 00:00:00 Completed [facility] Pneumococcal Polysaccharide, PPSV23 (PNEUMOVAX) 2020-05-13 00:00:00 Completed [facility] Pneumococcal Polysaccharide, PPSV23 (PNEUMOVAX) 2020-05-13 00:00:00 Completed [facility] Pneumococcal Polysaccharide, PPSV23 (PNEUMOVAX) 2020-05-13 00:00:00 Completed [facility] Pneumococcal Polysaccharide, PPSV23 (PNEUMOVAX) 2020-05-13 00:00:00 Completed [facility] Pneumococcal Polysaccharide, PPSV23 (PNEUMOVAX) 2020-05-13 00:00:00 Completed [facility] Pneumococcal Polysaccharide, PPSV23 (PNEUMOVAX) 2020-05-13 00:00:00 Completed [facility] Influenza High Dose 2020-05-06 00:00:00 Completed [facility] Influenza High Dose 2020-05-06 00:00:00 Completed [facility] Influenza High Dose 2020-05-06 00:00:00 Completed [facility] Influenza High Dose 2020-05-06 00:00:00 Completed [facility] Influenza High Dose 2020-05-06 00:00:00 Completed [facility] Influenza High Dose 2020-05-06 00:00:00 Completed [facility] Influenza High Dose 2020-05-06 00:00:00 Completed [facility] Influenza High Dose 2020-05-06 00:00:00 Completed [facility] Influenza High Dose 2020-05-06 00:00:00 Completed [facility] Influenza High Dose 2020-05-06 00:00:00 Completed [facility] Influenza High Dose 2020-05-06 00:00:00 Completed [facility] Influenza High Dose 2020-05-06 00:00:00 Completed [facility] Influenza High Dose 2020-05-06 00:00:00 Completed [facility] Influenza High Dose 2020-05-06 00:00:00 Completed [facility] Influenza High Dose 2020-05-06 00:00:00 Completed [facility] Influenza High Dose 2020-05-06 00:00:00 Completed [facility] Influenza High Dose 2020-05-06 00:00:00 Completed [facility] Influenza High Dose 2020-05-06 00:00:00 Completed [facility] Influenza High Dose 2020-05-06 00:00:00 Completed [facility] Influenza High Dose 2020-05-06 00:00:00 Completed [facility] Influenza High Dose 2020-05-06 00:00:00 Completed [facility] Influenza High Dose 2020-05-06 00:00:00 Completed [facility] Influenza High Dose 2020-05-06 00:00:00 Completed [facility] Influenza High Dose 2020-05-06 00:00:00 Completed [facility] Influenza High Dose 2020-05-06 00:00:00 Completed [facility] Influenza High Dose 2020-05-06 00:00:00 Completed [facility] Influenza High Dose 2020-05-06 00:00:00 Completed [facility] Influenza High Dose 2020-05-06 00:00:00 Completed [facility] Influenza High Dose 2020-05-06 00:00:00 Completed [facility] Influenza High Dose 2020-05-06 00:00:00 Completed [facility] Influenza High Dose 2020-05-06 00:00:00 Completed [facility] Influenza High Dose 2020-05-06 00:00:00 Completed [facility] Influenza High Dose 2020-05-06 00:00:00 Completed [facility] Influenza High Dose 2020-05-06 00:00:00 Completed [facility] Influenza High Dose 2020-05-06 00:00:00 Completed [facility] Influenza High Dose 2020-05-06 00:00:00 Completed [facility] Influenza High Dose 2020-05-06 00:00:00 Completed [facility] Influenza High Dose 2020-05-06 00:00:00 Completed [facility] Influenza High Dose 2020-05-06 00:00:00 Completed [facility] SARS-COV-2 COVID-19 MODERNA 12+ YRS VACCINE Unknown Completed [facility] Pneumococcal Polysaccharide, PPSV23 (PNEUMOVAX) Unknown Completed [facility] Influenza High Dose Unknown Completed [facility] Influenza High Dose Unknown Completed [facility] SARS-COV-2 COVID-19 MODERNA 12+ YRS VACCINE Unknown Completed [facility] SARS-COV-2 COVID-19 MODERNA 12+ YRS VACCINE Unknown Completed [facility] SARS-COV-2 COVID-19 MODERNA 0.25ML BOOSTER VACCINE Unknown Completed [facility] SARS-COV-2 COVID-19 MODERNA 12+ YRS VACCINE Unknown Completed [facility] Pneumococcal Polysaccharide, PPSV23 (PNEUMOVAX) Unknown Completed [facility] Influenza High Dose Unknown Completed [facility] Influenza High Dose Unknown Completed [facility] SARS-COV-2 COVID-19 MODERNA 12+ YRS VACCINE Unknown Completed [facility] SARS-COV-2 COVID-19 MODERNA 12+ YRS VACCINE Unknown Completed [facility] SARS-COV-2 COVID-19 MODERNA 0.25ML BOOSTER VACCINE Unknown Completed [facility] SARS-COV-2 COVID-19 MODERNA 12+ YRS VACCINE Unknown Completed [facility] Pneumococcal Polysaccharide, PPSV23 (PNEUMOVAX) Unknown Completed [facility] Influenza High Dose Unknown Completed [facility] Influenza High Dose Unknown Completed [facility] SARS-COV-2 COVID-19 MODERNA 12+ YRS VACCINE Unknown Completed [facility] SARS-COV-2 COVID-19 MODERNA 12+ YRS VACCINE Unknown Completed [facility] SARS-COV-2 COVID-19 MODERNA 0.25ML BOOSTER VACCINE Unknown Completed [facility] SARS-COV-2 COVID-19 MODERNA 12+ YRS VACCINE Unknown Completed [facility] Pneumococcal Polysaccharide, PPSV23 (PNEUMOVAX) Unknown Completed [facility] Influenza High Dose Unknown Completed [facility] Influenza High Dose Unknown Completed [facility] SARS-COV-2 COVID-19 MODERNA 12+ YRS VACCINE Unknown Completed [facility] SARS-COV-2 COVID-19 MODERNA 12+ YRS VACCINE Unknown Completed [facility] SARS-COV-2 COVID-19 MODERNA 0.25ML BOOSTER VACCINE Unknown Completed [facility] SARS-COV-2 COVID-19 MODERNA 12+ YRS VACCINE Unknown Completed [facility] Pneumococcal Polysaccharide, PPSV23 (PNEUMOVAX) Unknown Completed [facility] Influenza High Dose Unknown Completed [facility] Influenza High Dose Unknown Completed [facility] SARS-COV-2 COVID-19 MODERNA 12+ YRS VACCINE Unknown Completed [facility] SARS-COV-2 COVID-19 MODERNA 12+ YRS VACCINE Unknown Completed [facility] SARS-COV-2 COVID-19 MODERNA 0.25ML BOOSTER VACCINE Unknown Completed [facility] SARS-COV-2 COVID-19 MODERNA 12+ YRS VACCINE Unknown Completed [facility] Pneumococcal Polysaccharide, PPSV23 (PNEUMOVAX) Unknown Completed [facility] Influenza High Dose Unknown Completed [facility] Influenza High Dose Unknown Completed [facility] SARS-COV-2 COVID-19 MODERNA 12+ YRS VACCINE Unknown Completed [facility] SARS-COV-2 COVID-19 MODERNA 12+ YRS VACCINE Unknown Completed [facility] SARS-COV-2 COVID-19 MODERNA 0.25ML BOOSTER VACCINE Unknown Completed [facility] SARS-COV-2 COVID-19 MODERNA 12+ YRS VACCINE Unknown Completed [facility] Pneumococcal Polysaccharide, PPSV23 (PNEUMOVAX) Unknown Completed [facility] Influenza High Dose Unknown Completed [facility] Influenza High Dose Unknown Completed [facility] SARS-COV-2 COVID-19 MODERNA 12+ YRS VACCINE Unknown Completed [facility] SARS-COV-2 COVID-19 MODERNA 12+ YRS VACCINE Unknown Completed [facility] SARS-COV-2 COVID-19 MODERNA 0.25ML BOOSTER VACCINE Unknown Completed [facility] SARS-COV-2 COVID-19 MODERNA 12+ YRS VACCINE Unknown Completed [facility] Pneumococcal Polysaccharide, PPSV23 (PNEUMOVAX) Unknown Completed [facility] Influenza High Dose Unknown Completed [facility] Influenza High Dose Unknown Completed [facility] SARS-COV-2 COVID-19 MODERNA 12+ YRS VACCINE Unknown Completed [facility] SARS-COV-2 COVID-19 MODERNA 12+ YRS VACCINE Unknown Completed [facility] SARS-COV-2 COVID-19 MODERNA 0.25ML BOOSTER VACCINE Unknown Completed [facility] SARS-COV-2 COVID-19 MODERNA 12+ YRS VACCINE Unknown Completed [facility] Pneumococcal Polysaccharide, PPSV23 (PNEUMOVAX) Unknown Completed [facility] Influenza High Dose Unknown Completed [facility] Influenza High Dose Unknown Completed [facility] SARS-COV-2 COVID-19 MODERNA 12+ YRS VACCINE Unknown Completed [facility] SARS-COV-2 COVID-19 MODERNA 12+ YRS VACCINE Unknown Completed [facility] SARS-COV-2 COVID-19 MODERNA 0.25ML BOOSTER VACCINE Unknown Completed [facility] SARS-COV-2 COVID-19 MODERNA 12+ YRS VACCINE Unknown Completed [facility] Pneumococcal Polysaccharide, PPSV23 (PNEUMOVAX) Unknown Completed [facility] Influenza High Dose Unknown Completed [facility] Influenza High Dose Unknown Completed [facility] SARS-COV-2 COVID-19 MODERNA 12+ YRS VACCINE Unknown Completed [facility] SARS-COV-2 COVID-19 MODERNA 12+ YRS VACCINE Unknown Completed [facility] SARS-COV-2 COVID-19 MODERNA 0.25ML BOOSTER VACCINE Unknown Completed [facility] SARS-COV-2 COVID-19 MODERNA 12+ YRS VACCINE Unknown Completed [facility] Pneumococcal Polysaccharide, PPSV23 (PNEUMOVAX) Unknown Completed [facility] Influenza High Dose Unknown Completed [facility] Influenza High Dose Unknown Completed [facility] SARS-COV-2 COVID-19 MODERNA 12+ YRS VACCINE Unknown Completed [facility] SARS-COV-2 COVID-19 MODERNA 12+ YRS VACCINE Unknown Completed [facility] SARS-COV-2 COVID-19 MODERNA 0.25ML BOOSTER VACCINE Unknown Completed [facility] SARS-COV-2 COVID-19 MODERNA 12+ YRS VACCINE Unknown Completed [facility] Pneumococcal Polysaccharide, PPSV23 (PNEUMOVAX) Unknown Completed [facility] Influenza High Dose Unknown Completed [facility] Influenza High Dose Unknown Completed [facility] SARS-COV-2 COVID-19 MODERNA 12+ YRS VACCINE Unknown Completed [facility] SARS-COV-2 COVID-19 MODERNA 12+ YRS VACCINE Unknown Completed [facility] SARS-COV-2 COVID-19 MODERNA 0.25ML BOOSTER VACCINE Unknown Completed [facility] Vital Signs Vital Name Observation Time Observation Value Comments S ource Systolic blood pressure 2023-01-24 18:26:00 149 mm[Hg] [facility] Diastolic blood pressure 2023-01-24 18:26:00 79 mm[Hg] [facility] Heart rate 2023-01-24 18:26:00 67 /min [facility] Body temperature 2023-01-24 18:24:00 36.44 Gita [facility] Respiratory rate 2023-01-24 18:24:00 18 /min [facility] Body weight 2023-01-24 18:24:00 68.04 kg General acute hospital BMI 2023-01-24 18:24:00 29.29 kg/m2 General acute hospital Oxygen saturation in Arterial blood by Pulse oximetry 2023-01-24 18:24:00 99 /min [facility] Body weight 2023-01-17 14:51:00 67.132 kg General acute hospital BMI 2023-01-17 14:51:00 28.90 kg/m2 General acute hospital Systolic blood pressure 2023-01-10 15:25:00 136 mm[Hg] [facility] Diastolic blood pressure 2023-01-10 15:25:00 57 mm[Hg] [facility] Heart rate 2023-01-10 15:25:00 58 /min [facility] Respiratory rate 2023-01-10 15:25:00 18 /min [facility] Oxygen saturation in Arterial blood by Pulse oximetry 2023-01-10 15:25:00 95 /min [facility] Body temperature 2023-01-10 14:45:00 35.83 Gita [facility] Body height 2023-01-04 19:00:00 152.4 cm [facility] acute hospital Body weight 2023-01-04 19:00:00 67.132 kg General acute hospital BMI 2023-01-04 19:00:00 28.90 kg/m2 General acute hospital Systolic blood pressure 2023-01-10 15:25:00 136 mm[Hg] [facility] Diastolic blood pressure 2023-01-10 15:25:00 57 mm[Hg] [facility] Heart rate 2023-01-10 15:25:00 58 /min [facility] Respiratory rate 2023-01-10 15:25:00 18 /min [facility] Oxygen saturation in Arterial blood by Pulse oximetry 2023-01-10 15:25:00 95 /min [facility] Body temperature 2023-01-10 14:45:00 35.83 Gita [facility] Body height 2023-01-04 19:00:00 152.4 cm [facility] acute hospital Body weight 2023-01-04 19:00:00 67.132 kg General acute hospital BMI 2023-01-04 19:00:00 28.90 kg/m2 General acute hospital Systolic blood pressure 2022-12-27 19:50:00 139 mm[Hg] [facility] Diastolic blood pressure 2022-12-27 19:50:00 69 mm[Hg] [facility] Heart rate 2022-12-27 19:50:00 68 /min [facility] Body temperature 2022-12-27 19:50:00 36.56 Gita [facility] Respiratory rate 2022-12-27 19:50:00 18 /min [facility] Body height 2022-12-27 19:50:00 152.4 cm [facility] acute hospital Body weight 2022-12-27 19:50:00 69.037 kg Univ [facility] BMI 2022-12-27 19:50:00 29.72 kg/m2 [facility] Oxygen saturation in Arterial blood by Pulse oximetry 2022-12-27 19:50:00 96 /min [facility] Systolic blood pressure 2022-10-18 18:19:00 117 mm[Hg] [facility] Diastolic blood pressure 2022-10-18 18:19:00 61 mm[Hg] [facility] Heart rate 2022-10-18 18:19:00 63 /min [facility] Body temperature 2022-10-18 18:19:00 36.22 Gita [facility] Body height 2022-10-18 18:19:00 152.4 cm [facility] Body weight 2022-10-18 18:19:00 69.763 kg Univ [facility] BMI 2022-10-18 18:19:00 30.04 kg/m2 [facility] Oxygen saturation in Arterial blood by Pulse oximetry 2022-10-18 18:19:00 96 /min [facility] Systolic blood pressure 2022-07-26 19:06:00 141 mm[Hg] [facility] Diastolic blood pressure 2022-07-26 19:06:00 77 mm[Hg] [facility] Heart rate 2022-07-26 19:06:00 58 /min [facility] Body temperature 2022-07-26 19:06:00 36.28 Gita [facility] Respiratory rate 2022-07-26 19:06:00 18 /min [facility] Body height 2022-07-26 19:06:00 [facility] 2022-07-26 19:06:00 67.314 kg [facility] BMI 2022-07-26 19:06:00 28.98 [facility]2 [facility] O[facility] in Arterial blood by Pulse oximetry 2022-07-26 19:06:00 96 /min [facility] Systolic blood pressure 2022-07-19 18:16:00 126 mm[Hg] [facility] Diastolic blood pressure 2022-07-19 18:16:00 67 mm[Hg] [facility] Heart rate 2022-07-19 18:16:00 66 /min [facility] Body weight 2022-07-19 18:16:00 67.949 kg General acute hospital BMI 2022-07-19 18:16:00 29.26 kg/m2 General acute hospital Oxygen saturation in Arterial blood by Pulse oximetry 2022-07-19 18:16:00 95 /min [facility] Systolic blood pressure 2022-07-12 16:15:00 125 mm[Hg] [facility] Diastolic blood pressure 2022-07-12 16:15:00 78 mm[Hg] [facility] Heart rate 2022-07-12 16:15:00 56 /min [facility] Body temperature 2022-07-12 16:15:00 36.11 Gita [facility] Oxygen saturation in Arterial blood by Pulse oximetry 2022-07-12 16:15:00 97 /min [facility] Respiratory rate 2022-07-12 15:33:00 13 /min [facility] Body height 2022-07-07 15:00:00 152.4 cm [facility] acute hospital Body weight 2022-07-07 15:00:00 65.772 kg General acute hospital BMI 2022-07-07 15:00:00 28.32 kg/m2 General acute hospital Systolic blood pressure 2022-07-12 16:15:00 125 mm[Hg] [facility] Diastolic blood pressure 2022-07-12 16:15:00 78 mm[Hg] [facility] Heart rate 2022-07-12 16:15:00 56 /min [facility] Body temperature 2022-07-12 16:15:00 36.11 Gita [facility] Oxygen saturation in Arterial blood by Pulse oximetry 2022-07-12 16:15:00 97 /min [facility] Respiratory rate 2022-07-12 15:33:00 13 /min [facility] Body height 2022-07-07 15:00:00 152.4 cm Univ [facility] Body weight 2022-07-07 15:00:00 65.772 kg General acute hospital BMI 2022-07-07 15:00:00 28.32 kg/m2 [facility] Systolic blood pressure 2022-06-14 18:30:00 126 mm[Hg] [facility] Diastolic blood pressure 2022-06-14 18:30:00 66 mm[Hg] [facility] Heart rate 2022-06-14 18:30:00 67 /min [facility] Respiratory rate 2022-06-14 18:30:00 18 /min [facility] Body height 2022-06-14 18:30:00 152.4 cm Univ [facility] Body weight 2022-06-14 18:30:00 68.04 kg General acute hospital BMI 2022-06-14 18:30:00 29.29 kg/m2 General acute hospital Systolic blood pressure 2022-05-31 21:33:00 126 mm[Hg] [facility] Diastolic blood pressure 2022-05-31 21:33:00 65 mm[Hg] [facility] Heart rate 2022-05-31 21:32:00 72 /min [facility] Body temperature 2022-05-31 21:32:00 36.39 Gita [facility] Respiratory rate 2022-05-31 21:32:00 18 /min [facility] Body height 2022-05-31 21:32:00 162.6 cm Univ [facility] Body weight 2022-05-31 21:32:00 68.04 kg Univ [facility] BMI 2022-05-31 21:32:00 25.75 kg/m2 General acute hospital Oxygen saturation in Arterial blood by Pulse oximetry 2022-05-31 21:32:00 96 /min [facility] Systolic blood pressure 2022-02-05 18:53:00 134 mm[Hg] [facility] Diastolic blood pressure 2022-02-05 18:53:00 81 mm[Hg] [facility] Heart rate 2022-02-05 18:53:00 62 /min [facility] Body temperature 2022-02-05 18:53:00 36.39 Gita [facility] Respiratory rate 2022-02-05 18:53:00 18 /min [facility] Body height 2022-02-05 18:53:00 152.4 cm [facility] acute hospital Body weight 2022-02-05 18:53:00 64.955 kg General acute hospital BMI 2022-02-05 18:53:00 27.97 kg/m2 General acute hospital Oxygen saturation in Arterial blood by Pulse oximetry 2022-02-05 18:53:00 95 /min [facility] Systolic blood pressure 2021-06-05 20:56:00 143 mm[Hg] [facility] Diastolic blood pressure 2021-06-05 20:56:00 78 mm[Hg] [facility] Heart rate 2021-06-05 20:56:00 70 /min [facility] Body temperature 2021-06-05 20:56:00 36.89 Gita [facility] Respiratory rate 2021-06-05 20:56:00 18 /min [facility] Body height 2021-06-05 20:56:00 152.4 cm [facility] acute hospital Body weight 2021-06-05 20:56:00 64.501 kg General acute hospital BMI 2021-06-05 20:56:00 27.77 kg/m2 General acute hospital Oxygen saturation in Arterial blood by Pulse oximetry 2021-06-05 20:56:00 97 /min [facility] Procedures Procedure Date / Time Performed Performing Clinician Source XR, shoulder, 2 or more view 2023-05-24 00:00:00 [facility] TRIGGER FINGER RELEASE 2023-01-10 13:29:00 Serafin Gipson [facility] DAY SURGERY - ADC 2023-01-10 05:01:00 Doctor Loretta ssigned, [place] [facility] DISCLOSURE AND CONSENT, MEDICAL AND SURGICAL PROCEDURES 2022-12-27 05:01:00 Doctor Unassigned, [place] [facility] DISCLOSURE AND CONSENT, MEDICAL AND SURGICAL PROCEDURES 2022-12-27 05:01:00 Doctor Unassigned, [place] [facility] TRIGGER FINGER RELEASE 2022-07-12 14:33:00 Serafin Gipson [facility] DAY SURGERY - ADC 2022-07-12 05:01:00 Doctor Loretta ssigned, [place] [facility] EXTERNAL PROVIDER RECORDS 2022-06-25 05:01:00 Doctor Unassigned, [place] [facility] EXTERNAL PROVIDER RECORDS 2022-06-25 05:01:00 Doctor Unassigned, [place] [facility] MEDICAL RELEASE/CLEARANCE FORMS 2022-06-24 05:01:00 Doctor Unassigned, [place] [facility] MEDICAL RELEASE/CLEARANCE FORMS 2022-06-24 05:01:00 Doctor Unassigned, [place] [facility] [place] [facility] PATIENT FINANCIAL POLICY 2022-06-14 18:01:01 Doctor Unassigned, [place] [facility] ASSIGNMENT OF BENEFITS 2022-02-05 18:19:56 Docto r Unassigned, [place] [facility] XR, shoulder, 2 or more view 2021-12-29 00:00:00 [facility] MRI, shoulder, w/o contrast 2021-12-29 00:00:00 [facility] ASSIGNMENT OF BENEFITS 2020-12-11 22:26:52 Docto r Unassigned, [place] [facility] [id number] [id number] Hip Replacement [facility] Hip Surgery [facility] Hysterectomy [facility] Neck Surgery [facility] Encounters Start Date/Time End Date/Time Encounter Type Admission Type Attending [facility] Care Facility Care Department Encounter ID Source 2021 14:35:00 Inpatient Augusto Pope [facility] [id number] [facility] 2019-11-28 14:30:00 Inpatient ADRIAN Muniz Sonny [facility] [id number] [facility] 2023-06-25 00:00:00 2023-06-25 00:00:00 Outpatient SHEA_Price Bill AO AO [id number] [facility] 2023-06-24 00:00:00 2023-06-24 00:00:00 Outpatient SHEA_Price Bill AO AO [id number] [facility] 2023-05-24 00:00:00 2023-05-24 00:00:00 Sonny Muniz MD: [address] [place] [phone] , Ph. [phone] [facility] [place] - Orth[facility] - [facility] [id number] [facility] 2023-05-21 00:00:00 2023-05-21 00:00:00 Outpatient SHEA_Price Bill AO AO [id number] [facility] 2023-02-21 13:00:00 2023-02-21 13:00:00 Outpatient ROSENDO XIONG [facility] [id number] [facility] 2023-02-14 13:00:00 2023-02-14 13:00:00 Outpatient R [facility] [id number] [facility] 2023-01-24 13:30:00 2023-01-24 13:49:36 Outpatient ROSENDO XIONG [facility] [id number] [facility] 2023-01-24 13:30:00 2023-01-24 13:49:36 Office Visit Rosendo Gipson [facility] [id number] [facility] 2023-01-17 09:00:00 2023-01-17 10:02:16 Outpatient ROSENDO XIONG [facility] [id number] [facility] 2023-01-17 09:00:00 2023-01-17 10:02:16 Nurse Visit Nurse, [facility] Surgery Rosendo Gipson [facility] [id number] [facility] 2023-01-10 09:35:00 2023-01-10 10:49:00 Surgery Rosendo Gipson [facility] [id number] [facility] 2023-01-10 07:51:00 2023-01-10 10:35:00 Outpatient ROSENDO XIONG [facility] [id number] [facility] 2023-01-10 07:51:00 2023-01-10 10:35:00 Hospital [facility] Rosendo Gipson [facility] [id number] [facility] 2023-01-10 00:00:00 2023-01-10 00:00:00 [facility] [id number] [facility] 2023-01-10 00:00:00 2023-01-10 00:00:00 Orders Only Doctor Unassigned, [place] [facility] [id number] [facility] 2022-12-27 14:45:00 2022-12-27 15:26:14 Outpatient ROSENDO XIONG [facility] [id number] [facility] 2022-12-27 14:45:00 2022-12-27 15:26:14 Office Visit Rosendo [facility]ip[facility] [id number] [id number] [facility] 2022-11-16 00:00:00 2022-11-16 00:00:00 Telephone Rosendo Gipson [facility] [id number] [id number] [facility] 2022-10-18 13:00:00 2022-10-18 13:25:37 Outpatient R ROSENDO GIPSON [facility] [id number] [facility] 2022-10-18 13:00:00 2022-10-18 13:25:37 Office Visit Rosendo Gipson [facility] 1.2.840.114 350.1.13.10 4.2.7.2.[id number] [facility] 2022-10-01 00:00:00 2022-10-01 00:00:00 Telephone Rosendo Gipson [facility] 1.2.840.114 350.1.13.10 4.2.7.2.[id number] [facility] 2022-09-06 13:15:00 2022-09-06 13:15:00 Outpatient R ROSENDO GIPSON [facility] [id number] [facility] 2022-07-26 13:45:00 2022-07-26 14:26:49 Outpatient R ROSENDO GIPSON [facility] [id number] [facility] 2022-07-26 13:45:00 2022-07-26 14:26:49 Office Visit Rosendo Gipson [facility] 1.2.840.114 350.1.13.10 4.2.7.2.[id number] [facility] 2022-07-19 13:00:00 2022-07-19 14:00:00 Nurse Visit Nurse, [facility] Surgery Rosendo Gipson [facility] 1.2.840.114 350.1.13.10 4.2.7.2.[id number] [facility] 2022-07-19 13:00:00 2022-07-19 13:00:00 Outpatient Maria Del Carmen SAWYERROSENDO LOCK [facility] [id number] [facility] 2022-07-19 11:00:00 2022-07-19 11:00:00 Outpatient Maria Del Carmen SAWYERASHVIN ROSENDO [facility] [id number] [facility] 2022-07-19 00:00:00 2022-07-19 00:00:00 Patient Secure Msg Rosendo Gipson Marychuy [facility] 1.2.840.114 350.1.13.10 4.2.7.2.[id number] [facility] 2022-07-12 09:20:00 2022-07-12 11:30:00 Outpatient ROSENDO XIONG [facility] [id number] [facility] 2022-07-12 09:20:00 2022-07-12 11:30:00 Hospital Encounter Rosendo Gipson [facility] [place] 1.2.840.114 350.1.13.10 4.2.7.2.[id number] [facility] 2022-07-12 10:00:00 2022-07-12 11:19:00 Surgery Rosendo Gipson [facility] [place] 1.2.840.114 350.1.13.10 4.2.7.2.[id number] [facility] 2022-07-12 00:00:00 2022-07-12 00:00:00 Orders Only Doctor Unassigned, [place] [facility] 1.2.840.114 350.1.13.10 4.2.7.2.[id number] [facility] 2022-06-28 00:00:00 2022-06-28 00:00:00 Telephone Rosendo Gipson [facility] 1.2.840.114 350.1.13.10 4.2.7.2.[id number] [facility] 2022-06-25 00:00:00 2022-06-25 00:00:00 Prep For Surgery [facility] 1.2.840.114 350.1.13.10 4.2.7.2.[id number] [facility] 2022-06-25 00:00:00 2022-06-25 00:00:00 Telephone Rosendo Gipson [facility] 1.2.840.114 350.1.13.10 4.2.7.2.[id number] [facility] 2022-06-24 00:00:00 2022-06-24 00:00:00 Telephone ProashvinRosendo Marychuy [facility] 1.2.840.114 350.1.13.10 4.2.7.2.[id number] [facility] 2022-06-14 13:30:00 2022-06-14 13:45:44 Outpatient R ROSENDO GIPSON [facility] [id number] [facility] 2022-06-14 13:30:00 2022-06-14 13:45:44 Office Visit Rosendo Gipson [facility] 1.2.840.114 350.1.13.10 4.2.7.2.[id number] [facility] 2022-06-14 00:00:00 2022-06-14 00:00:00 Orders Only Doctor Unassigned, [place] [facility] 1.2.840.114 350.1.13.10 4.2.7.2.[id number] [facility] 2022-05-31 15:30:00 2022-05-31 16:19:43 Outpatient R ROSENDO GIPSON [facility] [id number] [facility] 2022-05-31 15:30:00 2022-05-31 16:19:43 Office Visit Rosendo Gipson [facility] 1..840.114 350.1.13.10 4.2.7.2.[id number] [facility] 2022-05-26 00:00:00 2022-05-26 00:00:00 Telephone Oswald Almazan [facility] 1..840.114 350.1.13.10 4.2.7.2.[id number] [facility] 2022-03-12 00:00:00 2022-03-12 00:00:00 Outpatient SHEA_Price Bill [facility] AOS[facility] [id number] [facility] 2022 00:00:00 2022 00:00:00 Outpatient SHEA_Price Bill [facility] AOS[facility] [id number] [facility] 2022-02-05 13:40:00 2022-02-05 14:58:11 Office Visit Sapna Obrien [facility] 1..840.114 350.1.13.10 4.2.7.2.[id number] [facility] 2022-02-05 13:40:00 2022-02-05 14:58:11 Outpatient Maria Del Carmen SAPNA OBRIEN [facility] [id number] [facility] 2022-02-05 00:00:00 2022-02-05 00:00:00 Orders Only Doctor Unassigned, [place] [facility] 1.2.840.114 350.1.13.10 4.2.7.2.[id number] [facility] 2022-01-29 09:00:00 2022-01-29 09:15:00 Laundry Marker Supervisor Visit 2, Adc Lab ObrienSapna faith [facility] 1.2.840.114 350.1.13.10 4.2.7.2.[id number] [facility] 2022-01-29 09:00:00 2022-01-29 09:00:00 Outpatient SAPNA PEARSON [facility] [id number] [facility] 2022-01-29 09:00:00 2022-01-29 09:00:00 Outpatient SAPNA PEARSON [facility] [id number] [facility] 2022-01-29 00:00:00 2022-01-29 00:00:00 Patient Secure Msg Sapna Obrien [facility] 1.2.840.114 350.1.13.10 4.2.7.2.[id number] [facility] 2022-01-22 10:00:00 2022-01-22 10:00:00 Outpatient VIKTORIA BLEDSOE [facility] [id number] [facility] 2021-12-31 10:56:00 2021-12-31 10:56:00 Outpatient [facility] [id number] [address] [place] [address] [facility] 2021-12-31 00:00:00 2021-12-31 00:00:00 Outpatient FOG_Price Bill AO AO [id number] [facility] 2021-12-31 00:00:00 2021-12-31 00:00:00 Sonny Muniz MD: [address] [place] [address] , Ph. [phone] [place] - [facility] - [facility] [id number] [facility] 2021-12-29 00:00:00 2021-12-29 00:00:00 [facility] [id number] [facility] 2021-12-29 00:00:00 2021-12-29 00:00:00 Sonny Muniz MD: [address] [place], [place] [address] , Ph. [phone] [place] - Ortho Dawn - [facility]Ofc [facility] [id number] [facility] 2021-11-18 00:00:00 2021-11-18 00:00:00 Outpatient [facility]OG[facility] [id number] [facility] 2021-09-14 00:00:00 2021-09-14 00:00:00 Patient Secure Sapna Miller [place] [address].2.840.114 350.1.13.10 4.2.7.2.[id number] [facility] 2021-09-09 00:00:00 2021-09-09 00:00:00 [address]Sapna Bob [address]840.114 350.1.13.10 4.2.7.2.[id number] [facility] 2021-07-17 11:00:00 2021-07-17 11:00:00 Outpatient CAMILA MARIE [facility] [id number] [facility] 2021-06-05 14:40:00 2021-06-05 15:39:46 Outpatient R SAPNA OBRIEN [facility] [id number] [facility] 2021-06-05 14:40:00 2021-06-05 15:39:46 Office Visit Sapna Obrien Candice [facility] 1.2.840.114 350.1.13.10 4.2.7.2.[id number] [facility] 2021-06-05 14:40:00 2021-06-05 15:39:46 Outpatient R SAPNA OBRIEN [facility] [id number] [facility] 2021-06-04 11:45:00 2021-06-04 11:45:00 Outpatient R [facility] [id number] [facility] 2021-06-04 11:45:00 2021-06-04 11:45:00 Outpatient R SAPNA OBRIEN [facility] [id number] [facility] 2021-05-01 08:00:00 2021-05-01 08:00:00 Outpatient R OSWALD ALAMZAN [facility] [id number] [facility] 2021-04-15 00:00:00 2021-04-15 00:00:00 Telephone Oswald Almazan [facility] 1..840.114 350.1.13.10 4.2.7.2.[id number] [facility] 2021-04-14 10:45:00 2021-04-14 11:28:54 Outpatient R SAPNA OBRIEN [facility] [id number] [facility] 2021-04-14 10:45:00 2021-04-14 11:28:54 Laundry Marker Supervisor Visit 2, Adc Lab Sapna Obrien Candice [facility] 1.2.840.114 350.1.13.10 4.2.7.2.[id number] [facility] 2021-04-01 00:00:00 2021-04-01 00:00:00 Tele[facility] 1.2.840.114 350.1.13.10 4.2.7.2.[id number] [facility] 2021-02-06 13:00:00 2021-02-06 13:00:18 Outpatient ONEL WALL [facility] [id number] [facility] 2021-02-06 12:59:50 2021-02-06 13:00:18 Imm/Inj Visit Nurse, Liza Pob Immunizatio Onel Aviles [facility] 1.2.840.114 350.1.13.10 4.2.7.2.[id number] [facility] 2021-02-06 13:00:00 2021-02-06 13:00:00 Outpatient ONEL WALL [facility] [id number] [facility] 2021-02-06 09:52:43 2021-02-06 11:41:22 Office Visit Sapna Obrien [facility] 1.2.840.114 350.1.13.10 4.2.7.2.[id number] [facility] 2021-02-06 09:40:00 2021-02-06 09:40:00 Outpatient R SPANA OBRIEN [facility] [id number] [facility] 2021-02-03 00:00:00 2021-02-03 00:00:00 Telephone Sapna Obrien [facility] 1.2.840.114 350.1.13.10 4.2.7.2.[id number] [facility] 2021-02-02 15:00:00 2021-02-02 12:25:49 Outpatient R SHAYLEE MENON [facility] [id number] [facility] 2021-02-02 11:33:56 2021-02-02 12:25:49 Nurse Visit Nurse, [facility] Fam Shaylee Menon [facility] 1.0.114 350.1.13.10 4.2.7.2.[id number] [facility] 2021-02-02 10:26:52 2021-02-02 10:41:52 Laboratory Only Only, [facility] Test Shaylee Menon [facility] 1..114 350.1.13.10 4.2.7.2.[id number] [facility] 2021-01-27 00:00:00 2021-01-27 00:00:00 Orders Only Doctor Unassigned, [place] [facility] 1..114 350.1.13.10 4.2.7.2.[id number] [facility] 2021-01-26 08:21:52 2021-01-26 08:51:52 Office Visit Oswald Almazan [facility] 1.114 350.1.13.10 4.2.7.2.[id number] [facility] 2021-01-26 08:30:00 2021-01-26 08:30:00 Outpatient R OSWALD ALMAZAN [facility] [id number] [facility] 2021-01-23 00:00:00 2021-01-23 00:00:00 Patient Secure Msmitzi AnnemarieCamila [facility] 1.114 350.1.13.10 4.2.7.2.[id number] [facility] 2021-01-23 00:00:00 2021-01-23 00:00:00 Patient Secure Msg Camila Oden [facility] 1.2.840.114 350.1.13.10 4.2.7.2.[id number] [facility] 2021-01-22 00:00:00 2021-01-22 00:00:00 Telephone [facility] 1.2.840.114 350.1.13.10 4.2.7.2.[id number] [facility] 2021-01-22 00:00:00 2021-01-22 00:00:00 Telephone Camila Oden [facility] 1.2.840.114 350.1.13.10 4.2.7.2.[id number] [facility] 2021-01-21 14:00:00 2021-01-21 23:59:00 Hospital Encounter Camila Oden [facility] 1.2.840.114 350.1.13.10 4.2.7.2.[id number] [facility] 2021-01-21 00:00:00 2021-01-21 00:00:00 Outpatient R ANNEMARIE CAMILA [facility] [id number] [facility] 2021-01-21 00:00:00 2021-01-21 00:00:00 Orders Only Doctor Unassigned, [place] [facility] 1.2.840.114 350.1.13.10 4.2.7.2.[id number] [facility] 2021-01-15 14:46:07 2021-01-15 15:01:07 Laundry Marker Supervisor Visit 2, Adc Lab Annemarie [facility] 1.2.840.114 350.1.13.10 4.2.7.2.[id number] [facility] 2021-01-15 11:00:57 2021-01-15 12:14:08 Office Visit Юлияanne marieCamila [facility] 1.2.840.114 350.1.13.10 4.2.7.2.[id number] [facility] 2021-01-15 11:00:00 2021-01-15 11:00:00 Outpatient R ANNEMARIE [facility] [id number] [facility] 2020-12-13 00:00:00 2020-12-13 00:00:00 Telephone Silke Alvarado [facility] 1.840.114 350.1.13.10 4.2.7.2.[id number] [facility] 2020-12-11 17:28:27 2020-12-11 17:43:27 Laboratory Only Only, Ang Db Test Unknown, Attending Marietta Mattson [facility] 1.2.840.114 350.1.13.10 4.2.7.2.[id number] [facility] 2020-12-11 17:25:00 2020-12-11 17:25:00 Outpatient R MARIETTA MATTSON [facility] [id number] [facility] 2020-12-11 00:00:00 2020-12-11 00:00:00 Orders Only Doctor Unassigned, [place] [facility] 1.2840.114 350.1.13.10 4.2.7.2.[id number] [facility] 2020-12-04 15:40:00 2020-12-04 15:40:00 Outpatient R CAMILA ODEN [facility] [id number] [facility] 2020-10-15 00:00:00 2020-10-15 00:00:00 Telephone Camila Oden [facility] 1.2.840.114 350.1.13.10 4.2.7.2.[id number] [facility] 2020-06-10 13:00:00 2020-06-10 23:59:00 Hospital Encounter Camila Oden [facility] 1.2.840.114 350.1.13.10 4.2.7.2.[id number] [facility] 2020-06-10 00:00:00 2020-06-10 00:00:00 Outpatient R ANNEMARIE [facility] [id number] [facility] 2020-06-10 00:00:00 2020-06-10 00:00:00 Orders Only Doctor Unassigned, [place] [facility] 1.2.840.114 350.1.13.10 4.2.7.2.[id number] [facility] 2020-06-03 15:07:46 2020-06-03 15:47:00 Office Visit Camila Oden [facility] 1.2.840.114 350.1.13.10 4.2.7.2.[id number] 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 2020-06-03 13:50:36 2020-06-03 15:17:27 Office Visit Camila Oden [facility] 1..840.114 350.1.13.10 4.2.7.2.[id number] [facility] 2020-06-03 14:00:00 2020-06-03 14:00:00 Outpatient Maria Del Carmen ODEN CAMILA [facility] [id number] [facility] 2020-06-03 00:00:00 2020-06-03 00:00:00 Orders Only Doctor Unassigned, [place] [facility] 1..840.114 350.1.13.10 4.2.7.2.[id number] [facility] 2019-12-05 18:10:00 2019-12-05 18:10:00 Outpatient [id number] [facility] 2019-06-26 14:35:00 2019-06-26 14:35:00 Outpatient Sonny Cummings [facility] [id number] [facility] Results Test Description Test Time Test Comments Results Resul t Comments Source - MRI UP JNT W/O CONT RT 2021-12-31 12:25:00 [facility] : 1955 Sex: F Patient Name: PIERCE CLARKE Unit No: [id number] EXAMS: CPT CODE: [id number] MRI UP JNT W/[place] [address] MR of the right shoulder without contrast TECHNIQUE: Paracoronal, parasagittal and axial multisequence images obtained. COMPARISON: None available. FINDINGS: Exam is limited by patient motion. Acromioclavicular joint: Moderate degenerative changes. Rotator cuff: A high-grade tear involving the near entire supraspinatus tendon is demonstrated with some sparing of bursal surface fibers posteriorly. A high-grade undersurface/interstiti al tear extends into the anterior 1.3 cm of the infraspinatus tendon as well. There is also high-grade undersurface tear of the superior to mid subscapularis tendon over a craniocaudal dimension of 1.2 cm with undersurface retraction. There is mild supraspinatus supraspinatus muscle atrophy as well as moderate subscapularis and teres minor muscle atrophy. Long head biceps tendon: Intra-articular dislocation of the long head of the biceps tendon is demonstrated with superimposed tendinosis. A superimposed tear is not excluded. Labrum: Diffuse labral heterogeneity is present. Cartilage/ bone: Moderate glenohumeral cartilage loss is noted with multifocal subchondral edema present. No acute fracture. No suspicious osseous lesion. Other: A joint effusion is present as well as synovitis. IMPRESSION: 1. Near complete supraspinatus tendon tear as well as additional high-grade tears of the infraspinatus and subscapularis tendons. 2. Intra-articular dislocation of the biceps tendon. 3. Moderate glenohumeral cartilage loss. at 1225 Reported and signed by: Augusto Carroll M.D. CC: Sonny Muniz MD Technologist: MIN HAHN. Transcribed D/ (1225) [facility]ly [facility] NAME: PIERCE CLARKE [address] [facility] PHYS: Sonny Betts : 1955 AGE: 66 SEX: F [place], [place] [address] LOC: Y.MRI PHONE #: [phone] EXAM DATE: 12/31/2021 STATUS: REG CLI FAX #: [phone] RAD #: [id number] D/C DT PAGE 1 Signed Report Patient Name: PIERCE CLARKE Unit No: [id number] EXAMS: CPT CODE: [id number] MRI UP JNT W/[place] [address] (Continued) Orig Print D/T: S: 12/31/2021 (1228) [facility] NAME: PIERCE CLARKE [address] [place] [address] PHYS: MICHAEL Talbert Sonny Muniz : 1955 AGE: 66 SEX: F [place], [place] [address] LOC: Y.MRI PHONE #: [phone] EXAM DATE: 12/31/2021 STATUS: REG CLI FAX #: [phone] RAD #: [id number] D/C DT PAGE 2 Signed Report - XR SHOULDER 1 V LT 2019-12-13 08:24:00 Patient Name: PIERCE CLARKE Unit No: [id number] EXAMS: CPT CODE: [id number] XR SHOULDER 1 [place] [address] AP portable left shoulder COMMENT: The patient is status post reverse prosthesis placement which is articulating normally. at 0824 Reported and signed by: Jeff Banks MD CC: Sonny Muniz MD Technologist: YONAS GREENBERG, RT(R) Transcribed D/ (0824) OmaL [facility] NAME: PIERCE CLARKE [address] [place] [address] PHYS: MICHAEL Talbert Sonny Mnuiz : 1955 AGE: 64 SEX: F [place] [address] LOC: Y.515 A PHONE #: [phone] EXAM DATE: 12/12/2019 STATUS: ADM IN FAX #: [phone] RAD #: [id number] D/C DT PAGE 1 Signed Report Patient Name: PIERCE CLARKE Unit No: [id number] EXAMS: CPT CODE: [id number] XR SHOULDER 1 [place] [address] (Continued) Orig Print D/T: S: 12/13/2019 (0827) [facility] NAME: PIERCE CLARKE [address] [place] [address] PHYS: MICHAEL MunizSonny Thurston : 1955 AGE: 64 SEX: F [place], [place] [address] LOC: Noy Harvey PHONE #: [phone] EXAM DATE: 12/12/2019 STATUS: ADM IN FAX #: [phone] RAD #: [id number] D/C DT PAGE 2 Signed Report CBC W/AUTO [id number] 05:54:00* Test Item Value Reference Range Interpretation Comme nts WHITE BLOOD CELL (test code = WBC) 7.8 K/mm3 5.8-11.0 N RED BLOOD CELL (test code = RBC) 4.18 M/mm3 4.2-5.4 L HEMOGLOBIN (test code = HGB) 12.6 g/dL 12-16 N HEMATOCRIT (test code = HCT) 37.9 % 37-47 N MEAN CELL VOLUME (test code = MCV) 91 fL 80-98 N MEAN CELL HGB (test code = MCH) 30.1 pg 27-34 N MEAN CELL HGB CONCENTRATION (test code = MCHC) 33.2 g/dL 30.8-34.1 N RED CELL DISTRIBUTION WIDTH (test code = RDW) 14.9 % 11-16 N PLT (test code = PLT) 279 K/mm3 130-400 N MEAN PLATELET VOLUME (test c ode = MPV) 11.2 fL 8.9-12.1 N NEUTROPHIL % (test code = NT%) 88.0 % 45-70 H LYMPHOCYTE % (test code = LY%) 8.8 % 20-40 L MONOCYTE % (test code = MO%) 2.7 % 3-10 L EOSINOPHIL % (test code = EO%) 0.0 % 1-5 L BASOPHIL % (test code = BA%) 0.1 % 0.0-1.1 N NEUTROPHIL # (test code = NT#) 6.88 K/mm3 2.00-7.50 N LYMPHOCYTE # (test code = LY#) 0.69 K/mm3 1.50-4.00 L MONOCYTE # (test code = MO#) 0.21 K/mm3 0.2-0.8 N EOSINOPHIL # (test code = EO#) 0.00 K/mm3 0.04-0.4 L BASOPHIL # (test code = BA#) 0.01 K/mm3 0.02-0.10 L MANUAL DIFF REQUIRED (test c ode = MDIFF) NO MANUAL DIFF NUCLEATED RED BLOOD CELL (te st code = NRBC) 0 % 0-0 N SPECIMEN COMMENT: POD #1Novel Coronavirus 2018 [id number] 18:33:00* Test Item Value Reference Range Interpretation Comme nts Novel Coronavirus 2018 Inhou se (test code = COVNONPUI) Negative Negative Novel Coronavirus 2018 [id number] 18:33:00* Test Item Value Reference Range Interpretation Comme nts Novel Coronavirus 2018 Inhou se (test code = COVNONPUI) Negative Negative COMPREHENSIVE METABOLIC [id number] 18:17:00* Test Item Value Reference Range Interpretation Comme nts SODIUM (test code = NA) 143 mmol/L 136-145 N POTASSIUM (test code = K) 4.2 mmol/L 3.5-5.1 N CHLORIDE (test code = CL) 104.0 mmol/L 98-107 N CARBON DIOXIDE (test code = CO2) 29.6 mmol/L 21-32 N GLUCOSE (test code = GLU) 86 mg/dL 70-110 N BLOOD UREA NITROGEN (test code = BUN) 23 mg/dL 7-18 H GLOMERULAR FILTRATION RATE (test code = GFR) 44.7 >60 Unit of m easure: mL/min/1.73 [id number] Range:Healthy Adults >90 mL/min/1.73 m2 For Chronic Kidney Disease: Stage II Mild Decrease in GFR 60-90 Stage III Moderate Decrease in GFR 30-59 Stage IV Severe Decrease in GFR 15-29 Stage V Kidney Failure <15 CREATININE (test code = CREAT) 1.21 mg/dL 0.55-1.30 N TOTAL PROTEIN (test code = PROT) 7.2 g/dL 6.4-8.2 N ALBUMIN (test code = ALB) 3.7 g/dL 3.4-5.0 N GLOBULIN (test code = GLOB) 3.5 g/dL 2.2-4.2 N ALBUMIN/GLOBULIN RATIO (test code = A/G) 1.1 0.7-2.0 N CALCIUM (test code = CA) 9.4 mg/dL 8.2-10.1 N BILIRUBIN TOTAL (test code = BILT) 0.30 mg/dL 0.2-1.00 N SGOT/AST (test code = AST) 22.0 U/L 15-37 N SGPT/ALT (test code = ALT) 36.0 U/L 12-78 N Please note new normal range. ALKALINE PHOSPHATASE TOTAL (test code = ALKP) 81 U/L 46-116 N PROTHROMBIN [id number] 18:11:00* Test Item Value Reference Range Interpretation Comme nts PROTHROMBIN TIME PATIENT (test code = PTP) 13.1 secs 10.1-12.5 H INTERNATIONAL NORMAL RATIO (test code = INR) 1.17 <2.0 RECOMMENDED THER APEUTIC RANGE FOR ORAL ANTICOAGULANTTREATMENT: CONDITION INRProphylaxis of venous thrombosis in 2.0 - 3.0 high-risk medical or surgical patientsTreatment of venous thrombosis 2.0 - 3.0Prevention of embolism 2.0 - 3.0Prevention of recurrent embolism, or 3.0 - 4.5 patients with mechanical prosthetic intravascular valves IS PATIENT ON ANTICOAGULANTS ? YLIST ANTICOAGULANT/ANTI PLT MEDICATION : OtherHas Lab been notifiedif Patient is on Heparin Drip? NOTHROMBOPLASTIN TIME [id number] 18:11:00* Test Item Value Reference Range Interpretation Comme nts PTT ACTIVATED (test code = APTT) 33.4 secs 24.9-37.0 N IS PATIENT ON ANTICOAGULANTS ? YLIST ANTICOAGULANT/ANTI PLT MEDICATION : OtherHas Lab been notifiedif Patient is on Heparin Drip? NOCBC W/AUTO DIFF 2019-11-12 17:51:00* Test Item Value Reference Range Interpretation Comme nts WHITE BLOOD CELL (test code = WBC) 6.6 K/mm3 5.8-11.0 N RED BLOOD CELL (test code = RBC) 4.90 M/mm3 4.2-5.4 N HEMOGLOBIN (test code = HGB) 14.6 g/dL 12-16 N HEMATOCRIT (test code = HCT) 43.2 % 37-47 N MEAN CELL VOLUME (test code = MCV) 88 fL 80-98 N MEAN CELL HGB (test code = MCH) 29.8 pg 27-34 N MEAN CELL HGB CONCENTRATION (test code = MCHC) 33.8 g/dL 30.8-34.1 N RED CELL DISTRIBUTION WIDTH (test code = RDW) 14.6 % 11-16 N PLT (test code = PLT) 337 K/mm3 130-400 N MEAN PLATELET VOLUME (test c ode = MPV) 9.9 fL 8.9-12.1 N NEUTROPHIL % (test code = NT%) 50.2 % 45-70 N LYMPHOCYTE % (test code = LY%) 36.0 % 20-40 N MONOCYTE % (test code = MO%) 8.1 % 3-10 N EOSINOPHIL % (test code = EO%) 4.6 % 1-5 N BASOPHIL % (test code = BA%) 0.9 % 0.0-1.1 N NEUTROPHIL # (test code = NT#) 3.30 K/mm3 2.00-7.50 N LYMPHOCYTE # (test code = LY#) 2.36 K/mm3 1.50-4.00 N MONOCYTE # (test code = MO#) 0.53 K/mm3 0.2-0.8 N EOSINOPHIL # (test code = EO#) 0.30 K/mm3 0.04-0.4 N BASOPHIL # (test code = BA#) 0.06 K/mm3 0.02-0.10 N MANUAL DIFF REQUIRED (test c ode = MDIFF) NO MANUAL DIFF NUCLEATED RED BLOOD CELL (te st code = NRBC) 0 % 0-0 N - CT UP EXTREM W/O CONT [id number] 06:31:00Patient Name: PIERCE CLARKE Unit No: [id number] EXAMS: CPT CODE: [id number] CT [place] EXTREM W/[place] [address] TECHNIQUE: Volumetric CT data of the left shoulder was obtained without use of intravenous contrast. Images were then viewed in the axial, coronal and sagittal planes. CT radiation dose optimization is achieved for this examination by the use of a CT protocol in accordance with ACR practice standards and adherence to senior caregiver's recommendations. INDICATION: LEFT SHOULDER ROTATOR CUFF ARTHROPATHY COMPARISON: MRI dated 11/07/2014. FINDINGS: Postoperative changes of prior rotator cuff repair demonstrated. There is recurrent full-thickness subscapularis tendon tear suspected with narrowing of the coracohumeral interval and marked subscapularis muscle atrophy. The subacromial interval is narrowed with fragmentation of the acromion present. Mild to moderate supraspinous muscle atrophy. Marked glenohumeral osteoarthritis is greatest anteriorly and superiorly. Prominent glenohumeral osteophytes are present. No acute fracture. The visualized left lung is clear. IMPRESSION: Marked left glenohumeral rotator cuff arthropathy. at 0631 Reported and signed by: Augusto Carroll M.D. CC: Sonny Muniz MD Technologist: Javier Little,RT(R) CTDI: DLP: Trnscrpt: 06/27/2019 (0631) [facility] NAME: PIERCE CLARKE [address] [place] [address] PHYS: Sonny Betts : 1955 AGE: 64 SEX: F [place] [address] LOC: JemalRAD PHONE #: [phone] EXAM DATE: 06/26/2019 STATUS: DEP CLI FAX #: [phone] RAD #: [id number] D/C DT PAGE 1 Signed Report Patient Name: PIERCE CLARKE Unit No: [id number] EXAMS: CPT CODE: [id number] CT UP EXTREM W/[place] [address] (Continued) Orig Print D/T: S: 06/27/2019 (0634) [facility] NAME: PIERCE CLARKE [address] [place] [address] PHYS: Sonny Betts : 1955 AGE: 64 SEX:F [place] [address] LOC: YCarlaRAD PHONE #: [phone] EXAM DATE: 06/26/2019 STATUS: DEP CLI FAX #: [phone] RAD #: [id number] D/C DT PAGE 2 Signed Report Notes Date/Time Note Provider Source 2022-11-17 11:13:27 Formatting of this n ote might be different from the original. Per , he plans to contact patient in a few days and discuss surgery date. Patient made aware of plan and is agreeable. Educated patient to contact the office if she has any further questions. Patient verbalized understanding. Kaylie Allred RN [facility] 2022-11-16 16:20:43 Formatting of this n ote might be different from the original. Patient previously discussed February surgery date with Dr. Gipson for trigger finger release. She would like to know if that date is still available? Please advise. Romana Townsend [facility] 2019-12-13 15:02:00 [facility] ([facility]) Discharge Summary REPORT#:[id number] REPORT STATUS: Signed DATE:12/13/19 TIME: 1502 PATIENT: PIERCE CLARKE UNIT #: [id number] [facility] AGE: 64 SEX: F ATTEND: Sonny Muniz MD ADM AUTHOR: JAMES HERNANDEZ MD * ALL edits or amendments must be made on the electronic/computer document * PCP PCP Discharge to: home General Information Discharge date: 12/13/19 Hospital course: Discharge Diagnosis: Left shoulder rotator cuff arthropathy Discharge: Home Pt Condition: Stable Activity: Ambulate with Assistance Diet as tolerated Sig Findings: uneventful course Treatment Rendered: left reverse total shoulder arthroplasty Prescriptions: On chart Special Instructions: provided to patient Follow- up appointment: 1 Week(s) Brief Hospital Course The patient underwent the above procedure on their admission date without complication. Postoperatively they were transferred to the orthopedic patient care unit. They received 24hrs postoperative antibiotics. They were transitioned from IV to oral pain medications with good control at discharge. They were placed in a sling and worked on elbow/wrist ROM and ADLs with PT. Once patient met all criteria they were deemed appropriate for discharge. They had no other complications during the visit. Med Rec Med Rec Discharge meds: Continue taking these medications: VENLAFAXINE XR (EFFEXOR XR) 150 MG CAP.SR.24H 150 MILLIGRAM ORAL TWICE DAILY. LEVOTHYROXINE (LEVOXYL) 150 MCG TAB 112 MICROGRAM ORAL DAILY. CARVEDILOL (COREG) 6.25 MG TAB 25 MILLIGRAM ORAL TWICE DAILY WITH MEALS. LORazepam (ATIVAN) 1 MG TAB 1 MILLIGRAM ORAL TWICE DAILY. buPROPion HCL XL (WELLBUTRIN XL) 150 MG TAB.SR.24H 150 MILLIGRAM ORAL DAILY. FUROSEMIDE (LASIX) 40 MG TAB 40 MILLIGRAM ORAL DAILY. AMIODARONE (CORDARONE) 200 MG TAB 200 MILLIGRAM ORAL DAILY. RIVAROXABAN (XARELTO) 20 MG TAB 20 MILLIGRAM ORAL DAILY. Sacubitril/Valsartan (Entresto 24 MG-26 MG Tablet) 24 MG-26 MG TAB 1 EACH ORAL TWICE DAILY. Discharge Instructions Wound/dressing care: FOLLOW DR. MUNIZ DISCHARGE INSTRUCTIONS Equipment/supplies: SLING Follow-up Appointments Attending Physician: Attending Physician: Sonny Muniz MD Follow up: In 1-2 weeks Special instructions: CALL OFFICE FOR APPOINTMENT at 1503 RPT #:[id number] END OF REPORT [facility] 2019-12-13 08:04:00 [facility] ([facility]) Pain Management Progress Note REPORT#:[id number] REPORT STATUS: Signed DATE:12/13/19 TIME: 08 PATIENT: PIERCE CLARKE UNIT #: [id number] ROOM/BED: [address] : 54 AGE: 64 SEX: F ATTEND: Sonny Muniz MD ADM AUTHOR: Dariela Masterson [employer] REPRESENTATIVE * ALL edits or amendments must be made on the electronic/computer document * Subjective Chief Complaint: L SHOULDER PAIN S/P TSA Comments: Last Documented: Result Date Time Pulse Ox 96 12/12 748 B/P 129/71 12/12 748 B/P Mean 90.3 12/12 748 O2 Delivery Nasal cannula 12/12 748 Temp 36.5 12/12 748 Pulse 79 12/12 748 Resp 18 12/12 748 FiO2 32 12/13 535 O2 Flow Rate 3.384081 12/13 535 History: PMH: A-FIB, HTN, ANXIETY POD: 1 APMS RN: Wilian MONTANO RN MD who placed block: DR. CRAFT Type of block: IS S/S Time block wore off: 0330 Activity status: PT SITTING UP IN A CHAIR WATCHING TV. Pain: STATES HAS LITTLE PAIN Physical Exam: VAS: 3 LOS: 1 Resp Quality: 1 Side Effects: NONE PT APPEARS COMFORTABLE AT THIS TIME. MOTOR MVMT AND STRENGTH INTACT TO HAND Plan: BLOCK FOLLOW UP PAIN MGMT CARE TRANSFERRED TO DR. AGUERO at 0807 RPT #:[id number] END OF REPORT [facility] 2019-12-13 08:04:00 [facility]) Pain Management Progress Note REPORT#:[id number] REPORT STATUS: Signed DATE:12/13/19 TIME: 08 PATIENT: PIERCE CLARKE UNIT #: [id number] ROOM/BED: [address] : 54 AGE: 64 SEX: F ATTEND: Sonny Muniz MD ADM AUTHOR: Dariela Masterson NP * ALL edits or amendments must be made on the electronic/computer document * Subjective Chief Complaint: L SHOULDER PAIN S/P TSA Comments: Last Documented: Result Date Time Pulse Ox 96 12/12 0749 B/P 129/71 12/12 0749 B/P Mean 90.3 12/12 0749 O2 Delivery Nasal cannula 12/12 07 Temp 36.5 12/12 0749 Pulse 79 12/12 0749 Resp 18 12/12 0749 FiO2 32 12/12 0536 O2 Flow Rate 3.315710 12/12 0536 History: PMH: A-FIB, HTN, ANXIETY POD: 1 APMS RN: Wilian MONTANO RN MD who placed block: DR. CRAFT Type of block: IS S/S Time block wore off: 0330 Activity status: PT SITTING UP IN A CHAIR WATCHING TV. Pain: STATES HAS LITTLE PAIN Physical Exam: VAS: 3 LOS: 1 Resp Quality: 1 Side Effects: NONE PT APPEARS COMFORTABLE AT THIS TIME. MOTOR MVMT AND STRENGTH INTACT TO HAND Plan: BLOCK FOLLOW UP PAIN MGMT CARE TRANSFERRED TO DR. AGUERO at 0807 at 0641 RPT #:[id number] END OF REPORT [facility] 2019-12-13 07:34:00 [facility] ([facility]) Orthopaedic Progress Note REPORT#:[id number] REPORT STATUS: Signed DATE:12/13/19 TIME: 733 PATIENT: PIERCE CLARKE UNIT #: [id number] ROOM/BED: [address] : 54 AGE: 64 SEX: F ATTEND: Sonny Muniz MD ADM AUTHOR: JAMES HERNANDEZ MD * ALL edits or amendments must be made on the electronic/computer document * Diagnosis, Assessment Plan Free text A P: Subjective: Patient is alert, oriented, and resting comfortably. Tolerating PO intake well. Pain is tolerable. Denies CP or SOB. Denies Numbness, tingling or weakness. Objective: L Shoulder- dressing is clean, dry, and intact. Arm in sling. Sensation intact to Axillary, radial, median, ulnar nerves Able to fire deltoid Intact motor function in radial, median, ulnar nerves Radial pulse palpable Laboratory Tests 12/13/19 0440: [Embedded Image Not Available] Vital Signs: Date Time Temp Pulse Resp B/P B/P Pulse O2 O2 Flow FiO2 Mean Ox Delivery Rate 12/12 0536 96 Nasal 3.564197 32 cannula 12/12 0405 35.9 72 16 105/60 74.8 97 Room air 12/12 0202 95 Nasal 3.301171 32 cannula 12/11 2354 92 Nasal 3.456404 32 cannula 12/11 2251 36.7 87 18 117/67 83.5 95 Nasal 3.456980 cannula 12/11 2054 Nasal 3.966565 cannula 12/11 1907 73 149/84 105.4 94 12/11 1904 36.1 75 16 93 Nasal 3.804227 cannula 12/11 1854 Nasal 3.418338 cannula 12/11 1832 36.4 65 16 118/56 98 Nasal 3.256040 cannula 12/11 1820 63 16 131/62 98 Nasal 3.324813 cannula 12/11 1813 Simple 6.144704 mask 12/11 1805 66 15 135/61 96 Nasal 3.884866 cannula 12/11 1750 66 15 143/63 97 Nasal 3.123737 cannula 12/11 1735 66 15 117/55 98 Simple 6.638931 mask 12/11 1720 36.3 70 19 121/65 99 Simple 6.587446 mask 12/11 1429 63 17 131/58 100 Simple 6.246250 mask 12/11 1414 62 15 133/61 100 Simple 6.713364 mask 12/11 1232 36.4 73 16 191/87 97 Room air Assessment/ Plan: L shoulder reverse arthroplasty - Post op day #1 May discharge home when ready from orthopedic standpoint - Follow up in office with physician in 1 week(s). Prescription for pain called into pharmcy. at 0735 RPT #:[id number] END OF REPORT [facility] 2019-12-13 07:33:00 [id number] [facility] [address] [place] [address] PATIENT NAME: PIERCE CLARKE ADMIT DATE: 12/12/19 ACCOUNT NO: [id number] ROOM NO: Y.515 AGE: 64 REPORT TYPE: OPERATIVE REPORT SEX: F ADMITTING PHYSICIAN:Sonny Muniz MD ATTENDING PHYSICIAN:Sonny Mnuiz MD OPERATION DATE: 12/12/2019 PREOPERATIVE DIAGNOSIS: Left shoulder rotator cuff tear arthropathy. POSTOPERATIVE DIAGNOSES: 1. Left shoulder rotator cuff tear arthropathy. 2. Left shoulder retained foreign bodies. PROCEDURES PERFORMED: 1. Left shoulder examination under anesthesia. 2. Left shoulder complex total shoulder arthroplasty using reverse prosthesis. 3. Left shoulder open removal of retained foreign bodies. SURGEON: Sonny Muniz MD ASSISTANTS: 1. Davin Sanches MD 2. James Hernandez MD The skilled assistance of Davin Sanches MD was necessary during this complex surgical procedure. He assisted with every aspect of the operation including but not limited to, proper and safe positioning of the patient, obtaining adequate surgical exposure, manipulation of surgical instruments, suture management, surgical knot tying, the continual process of hemostasis during the procedure itself in addition to surgical wound closure and removal of the patient from the operating table and returning the patient back to the [facility]. His assistance allowed me to perform the most sensitive and technical potions of this operation using 2 hands, thus enhancing efficiency and patient safety. This would not be possible without the help of a skilled assistant to the vice president familiar with the procedure and capable of safely performing the aforementioned tasks. ANESTHESIA: General. COMPLICATIONS: None. ESTIMATED BLOOD LOSS: 100 mL. INDICATIONS FOR PROCEDURE: Ms. Clarke is a 64-year-old female, status post rotator cuff repair in the past, had progressed to rotator cuff tear arthropathy. Risks and benefits of total shoulder arthroplasty using reverse prosthesis were discussed with her. She desired to proceed with surgery. The PATIENT NAME: PIERCE CLARKE EVELINE reverse prosthesis is a much more complex device than conventional shoulder arthroplasty requiring now more time for insertion as well as more diligent followup to observe for the higher complication rate that can occur in the postoperative global period. For these reasons, I feel the use of 22 modifier is indicated when coding for this procedure. PROCEDURE IN DETAIL: The patient was taken to the operating room and placed on the operating room table in supine position, where general anesthesia was administered. The patient was then positioned in modified beachchair position. Examination under anesthesia did not reveal any pathological laxity, and shoulder just revealed stiffness associated with her disease. Next, the left upper extremity and shoulder girdle region were prepped and draped in the usual sterile fashion. Standard deltopectoral approach was made retracting the cephalic vein laterally. Conjoined tendon was identified and retracted medially. The anterior humeral circumflex vessels were identified and suture ligated with 0 Vicryl in interrupted fashion. Axillary nerve was identified and protected throughout the case. Subscapularis, supraspinatus, infraspinatus, and biceps were all absent. There was an inferior capsular contracture present. The inferior capsule was released off the glenoid protecting the axillary nerve. Proximal humerus was then dislocated. Humeral head was resected along its anatomical neck. Multiple suture anchors were encountered, and these were removed. A cup protector was placed. Proximal humerus retracted posteriorly. Center hole was made in the glenoid. Glenoid was reamed to concentric surface. DJO reverse baseplate was then placed and fixated in standard fashion with 34 locking screw inferiorly, 18 locking screw superiorly, a 30 locking screw posteriorly, and 14 locking screw anteriorly. This gave excellent fixation. A 32, -4 glenosphere was placed, and the whole construct was stable. Proximal humerus was then redislocated. Cup protector was removed. Proximal humerus was then prepared using the DJO AltiVate short stem reverse, and a size 14 diameter stem was selected and inserted. Trial was made with various size polyethylene spacers. Ultimately, a 32, +4 neutral spacer was inserted. This gave excellent soft tissue tension, range of motion, and stability. Wound was irrigated thoroughly. Medium Hemovac drain was placed. Deep tissue was reapproximated with 0 Vicryl in interrupted fashion. Subcutaneous tissue was reapproximated with 2-0 Vicryl in interrupted fashion. Skin was reapproximated with 3-0 Monocryl in continuous running subcuticular fashion. Steri-Strips, sterile dressing, and sling were applied. The patient tolerated the procedure well and was transferred to the recovery room in satisfactory condition. Dictated By: Sonny Muniz MD WT: OP:HELEN/EDWTH/NTS Conf#: [id number]/DID#: [id number] Authenticated by Sonny Muniz MD On 12/14/2019 06:40:10 AM at 0640 PATIENT NAME: PIERCE CLARKE [facility] 2019-12-13 07:22:00 [facility] ([facility]) Internal Medicine Prog. Note REPORT#:[id number] REPORT STATUS: Signed DATE:12/13/19 TIME: 721 PATIENT: PIERCE CLARKE UNIT #: [id number] ROOM/BED: [address] : 54 AGE: 64 SEX: F ATTEND: Sonny Muniz MD ADM AUTHOR: Herve Gabriel MD * ALL edits or amendments must be made on the electronic/computer document * Subjective Patient reports: no complaints, no abdominal pain, no chest pain, no dizziness ( when getting OOB), no headache, no heartburn, no nausea, no shortness of breath, no vomiting, feeling better, pain controlled, no flatus Objective General VS/I O: Vital Signs Date Temp Pulse Resp B/P B/P Mean Pulse Ox FiO2 12/11-12/12 96.6-98.1 62-87 15-19 105-191/55-87 74.8-105.4 92-100 32 Last Documented: Result Date Time Pulse Ox 96 12/13 535 FiO2 32 12/13 535 O2 Delivery Nasal cannula 12/13 535 O2 Flow Rate 3.383591 12/13 535 B/P 105/60 12/12 404 B/P Mean 74.8 12/12 404 Temp 96.6 12/12 404 Pulse 72 12/12 404 Resp 16 12/12 404 24 hour I O ending at 0700: 12/12 0700 12/11 1900 Intake Total 850.00 100.00 Output Total 90 5 Balance 760.00 95.00 Intake, IV 850.00 100.00 Output, 90 5 Drainage Patient 177 lb Weight Weight Standing scale Measurement Method Patient Weight Weight (lb): 176 Weight (oz): 12.97 Weight (kg): 80.200 Post-op: day 1 Physical Exam General appearance: alert, awake, no acute distress Cardiovascular: normal heart sounds, regular rate rhythm, no murmur Respiratory: clear to auscultation Abdomen: abnormal bowel sounds (minimal), non-tender, soft, no distention Genitourinary: no [place] Extremities: Extremities: no calf tenderness, no edema, fingers on left hand are pink and warm Results Findings/Data: Laboratory Tests 12/13/19439: [Embedded Image Not Available] Laboratory Tests 12/13 439 Chemistry Sodium (136 - 145 mmol/L) 140 Potassium (3.5 - 5.1 mmol/L) 5.0 Chloride (98 - 107 mmol/L) 104.0 Carbon Dioxide (21 - 32 mmol/L) 27.4 BUN (7 - 18 mg/dL) 21 H Creatinine (0.55 - 1.30 mg/dL) 1.17 Glomerular Filtr Rate (>60) 46.4 Glucose (70 - 110 mg/dL) 128 H Calcium (8.2 - 10.1 mg/dL) 9.0 Laboratory Tests 12/13 439 Hematology WBC (5.8 - 11.0 K/mm3) 7.8 RBC (4.2 - 5.4 M/mm3) 4.18 L Hgb (12 - 16 g/dL) 12.6 Hct (37 - 47 %) 37.9 MCV (80 - 98 fL) 91 MCH (27 - 34 pg) 30.1 MCHC (30.8 - 34.1 g/dL) 33.2 RDW (11 - 16 %) 14.9 Plt Count (130 - 400 K/mm3) 279 MPV (8.9 - 12.1 fL) 11.2 Neut % (Auto) (45 - 70 %) 88.0 H Lymph % (Auto) (20 - 40 %) 8.8 L Tyrrell % (Auto) (3 - 10 %) 2.7 L Eos % (Auto) (1 - 5 %) 0.0 L Baso % (Auto) (0.0 - 1.1 %) 0.1 Neut # (Auto) (2.00 - 7.50 K/mm3) 6.88 Lymph # (Auto) (1.50 - 4.00 K/mm3) 0.69 L Tyrrell # (Auto) (0.2 - 0.8 K/mm3) 0.21 Eos # (Auto) (0.04 - 0.4 K/mm3) 0.00 L Baso # (Auto) (0.02 - 0.10 K/mm3) 0.01 L Add Manual Diff (MANUAL DIFF) NO Nucleated RBC % (0 - 0 %) 0 Results: labs reviewed Diagnosis, Assessment Plan Problem List/A P: 1. HTN (hypertension) BP is low normal this AM. 2. CHF (congestive heart failure) Compensated. 3. Afib Pt continues in a regular cardiac rhythm. 4. Renal insufficiency Renal fct is stable. Free Text DxA P Notes Free text DxA P notes: Continue current treatment. Continue to mobilize. at 0839 RPT #:[id number] END OF REPORT [facility] 2019-12-12 21:02:00 [facility] ([facility]) Clinical Note REPORT#:[id number] REPORT STATUS: Signed DATE:12/12/19 TIME: 2101 PATIENT: PIERCE CLARKE UNIT #: [id number] ROOM/BED: [address] : 54 AGE: 64 SEX: F ATTEND: Sonny Muniz MD ADM AUTHOR: Caden Aguero MD * ALL edits or amendments must be made on the electronic/computer document * Clinical Note Note: Consult Note Dictated [id number] [facility] #:[id number] END OF REPORT [facility] 2019-12-12 20:31:00 [id number] [facility] [address] [place] [address] PATIENT NAME: PIERCE CLARKE ADMIT DATE: 12/12/19 ACCOUNT NO: [id number] ROOM NO: Y.515 AGE: 64 REPORT TYPE: CONSULTATION REPORT SEX: F ADMITTING PHYSICIAN:Sonny Muniz MD ATTENDING PHYSICIAN:Sonny Muniz MD CONSULTATION DATE: 12/12/2019 CONSULTING PHYSICIAN: Caden Aguero MD I constantly covered this consultation out to Sonny Muniz MD. HISTORY OF PRESENT ILLNESS: The patient is a 64-year-old woman, , left handed, left footed. The patient is being seen postoperatively at the request of Sonny Muniz MD, for neurological evaluation of pain symptoms and medication management. The patient was admitted to the [facility] earlier today, December 11. The patient states that she has had left shoulder pain for many years. The patient did undergo a left shoulder rotator cuff repair in 2014 and again in 2016. The patient states the pain has been more pronounced in the last several months. The patient states she has had pain, cramping, and spasm in the neck, left shoulder and left arm. The patient has had some weakness in the arm. Some occasional numbness in the hand. No blurred vision, diplopia, or loss of vision. No incontinence to urine or stool. PAST MEDICAL HISTORY: 1. Hypothyroidism. 2. Congestive heart failure. 3. Anxiety disorder. 4. Depression. PAST SURGICAL HISTORY: Right shoulder rotator cuff repair 2014 and again in 2016. REVIEW OF SYSTEMS: EYES: The patient has not had any blurred vision. PATIENT NAME: PIERCE CLARKE ENT: The patient does have history of hypothyroidism. PULMONARY: No chest pain, coughing, or hemoptysis. CARDIOVASCULAR: The patient does have a history of congestive heart failure. GASTROINTESTINAL: No nausea, vomiting, or melena. GENITOURINARY: No incontinence. MUSCULOSKELETAL: As above. NEUROLOGICAL: As above. PSYCHIATRIC: The patient states the last month or two, the pain has made her energy level and appetite be less. Pain does interfere with her getting sleep and staying asleep. Pain has made her nervous, restless, and depressed. MEDICATIONS: Prior to the current admission include the followin. Rivaroxaban, Xarelto 20 mg daily. 2. Amiodarone 200 mg daily. 3. Carvedilol 25 mg q.a.m. 4. Sacubitril/valsartan 24/26 mg at bedtime. 5. Bupropion XL 150 mg q.a.m. 6. Venlafaxine XR 150 mg q.a.m. 7. Lorazepam 1 mg q.a.m. 8. Furosemide 40 mg q.a.m. 9. Levothyroxine 0.112 mg q.a.m. DRUG ALLERGIES: NONE KNOWN. SOCIAL HISTORY: The patient stopped smoking cigarettes in . Prior to that, she smoked a half a pack a day for about 5 years. The patient has a glass of wine twice a week. The patient did get in approximately 2003. She does live alone in a 1-level house. 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 The patient was diagnosed as having left shoulder disruption repair, status post revision repair, irreparable status. The patient did undergo a left shoulder arthroplasty with reverse prosthesis. Postoperatively, the patient has been placed on a SUPER[employer] pump with hydromorphone, Dilaudid, dose 0.1 mg, delay 8 minutes, 1-hour limit 0.8 mg. The patient also placed on Robaxin 500 mg q. 6 hours. The patient does have Freer 5 mg and Freer 10 mg q. 4 hours p.r.n. for breakthrough pain symptoms. PHYSICAL EXAMINATION: EYES: Pupils are equal, 3 mm in size. Extraocular movements show decreased accommodation of right eye. Visual [place] intact. NEUROLOGIC: Mental Status: The patient is alert. She is oriented to place, to year. The patient could subtract serial 7s x2 to 86. The patient could reverse presidents x2 to Obama. PATIENT NAME: PIERCE CLARKE Short-term memory was intact to 3/3 objects. The patient states the pain in the left shoulder is 7 on a scale of 0 to 10. Postoperatively, the patient was given interscalene brachial plexus block with 0.5% ropivacaine and clonidine. CRANIAL NERVES: II, III, IV and , as above; V, intact to light touch; VII, no facial asymmetry; VIII, decreased to high-pitched sounds bilaterally; IX, X, soft palate lifts midline; XI, XII intact. Motor: Good strength in the right arm, both legs. The patient can move the fingers slightly of the left hand secondary to block. Sensory exam, decreased sensation over the left finger secondary to block. REFLEXES: +1, right biceps; 0, right wrist; +1, both knees, 0, both ankles. Not tested, left arm. CLINICAL DIAGNOSES: 1. History of left shoulder rotator cuff repair in 2014 and again in 2015. 2. Left total shoulder arthroplasty with reverse prosthesis performed earlier today December 11. 3. Musculoskeletal spasm, left shoulder, cervical spine, left arm. 4. History of left total hip arthroplasty in 2007. 5. Hypothyroidism. 6. Congestive heart failure. 7. Anxiety disorder. 8. Depression. TREATMENT: We will continue pain medicines as noted above. We will also make Tylenol No. 3 and Tylenol No. 4 available p.r.n. for pain as the patient states that the hydrocodone does cause her to have significant constipation. Pain pump will be discontinued in the a.m. Medicines will be adjusted as indicated. Dictated By: Caden Aguero MD WT: CON:YJUSTA/LEE/CATRACHITA Conf#: [id number]/DID#: [id number] Authenticated by Caden Aguero MD On 01/07/2020 01:42:41 PM at 1342 PATIENT NAME: PIERCE CLARKE [facility] 2019-12-12 17:54:00 [id number] [address] PATIENT NAME: PIERCE CLARKE ADMIT DATE: 12/12/19 ACCOUNT NO: [id number] ROOM NO: Y.515 AGE: 64 REPORT TYPE: CONSULTATION REPORT SEX: F ADMITTING PHYSICIAN:Sonny Muniz MD ATTENDING PHYSICIAN:Sonny Muniz MD CONSULTATION DATE: 12/12/2019 CONSULTING PHYSICIAN: Herve Gabriel MD MEDICINE CONSULTATION ATTENDING PHYSICIAN: Sonny Muniz MD REASON FOR CONSULTATION: Postoperative medical evaluation and management of patient with multiple medical problems. HISTORY OF PRESENT ILLNESS: The patient is a 64-year-old white female with left rotator cuff arthropathy, who underwent a left total shoulder arthroplasty with reverse prosthesis earlier today. The patient tolerated surgery well. She was seen in the PACU. She currently denies any chest pain, shortness of breath, nausea, or vomiting. She has adequate pain control at the present time. PAST MEDICAL HISTORY: Congestive heart failure (most recent ejection fraction 50% in October 2019). The patient also has atrial fibrillation, dyslipidemia, depression, hypertension, hypothyroidism and gastroesophageal reflux disease. She denies any diabetes, coronary artery disease, asthma, sleep apnea, or history of deep venous thrombosis. PAST SURGICAL HISTORY: . Hysterectomy. Right elbow surgery. Left rotator cuff tear repair x2. Left elbow surgery. Cervical spine surgery. Left total hip arthroplasty. ALLERGIES: NKDA. CURRENT MEDICATIONS: Xarelto 20 mg daily (on hold), amiodarone 200 mg daily, carvedilol 25 mg b.i.d., Entresto 24/26 mg tablet b.i.d., bupropion XL 150 mg daily, lorazepam 1 mg b.i.d., venlafaxine XR 150 mg b.i.d., furosemide 40 mg daily, Levoxyl 112 mcg q.a.m. FAMILY HISTORY: Mother, father, and 2 siblings had hypertension. 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 She has not smoked for the past 3 years. Previously, she smoked less than half a pack a day for 17 years. She occasionally drinks alcohol. REVIEW OF SYSTEMS: The patient reports having dyspnea on exertion. She denies exertional chest pain, orthopnea, PND, black tarry stools, bright red blood per PATIENT NAME: PIERCE CLARKE EVELINE rectum, or dysuria. PHYSICAL EXAMINATION: GENERAL: Well-developed, obese white female, in no apparent distress. VITAL SIGNS: Pulse 66 and regular, respirations 16, blood pressure 117/55, temperature 97.3, oxygen saturation 97% on 8-L facemask. EYES: EOMI. PERRLA. Sclerae are anicteric. Oropharynx is clear. NECK: No adenopathy, thyromegaly, masses, tenderness, JVD, or carotid bruits. LUNGS: Clear to auscultation. HEART: Regular rate and rhythm without murmurs, gallops, or rubs. ABDOMEN: Corpulent. Bowel sounds present throughout. No hepatosplenomegaly, masses, tenderness, bruits, or distention. EXTREMITIES: Fingers on the left hand are pink and warm to touch. There is no calf or thigh swelling or posterior tenderness bilaterally. No Homans sign or palpable cords bilaterally. LABORATORY DATA: Preoperative laboratories (11/12/2019), BUN 23, creatinine 1.21, GFR 44.7. IMPRESSION: 1. Atrial fibrillation. The patient is currently in a regular cardiac rhythm. 2. Congestive heart failure. Compensated. 3. Hypertension. Blood pressure low normal at present time. 4. Gastroesophageal reflux disease. Asymptomatic. 5. Hypothyroidism. 6. Dyslipidemia. 7. Depression. Controlled. 8. Renal insufficiency. Most likely secondary to furosemide use. The patient denies any previous history of chronic kidney disease stage III. 9. Status post left total shoulder arthroplasty with reverse prosthesis. The patient is currently stable. PLAN: 1. Low-salt, low-fat, low-cholesterol diet. 2. Thigh-high MEGAN hose. 3. Sequential compression devices to both feet. 4. Check H and H and chem-6 in a.m. 5. The patient will restart Xarelto tomorrow morning as per Dr. Muniz. 6. Hold amiodarone for systolic blood pressure less than 50. 7. Hold carvedilol if systolic blood pressure less than 105 or heart rate less than 50. 8. Hold Entresto for systolic blood pressure less than 110. 9. Hold lorazepam for sedation. 10. Hold furosemide for systolic blood pressure less than 120. Thank you very much for this consultation. I will follow patient with you during her hospitalization. Dictated By: Herve Gabriel MD WT: CON:Y.ANGELITO/SUMEET/CATRACHITA Conf#: [id number]/DID#: [id number] PATIENT NAME: PIERCE CLARKE Authenticated by Herve Gabriel MD On 12/14/2019 07:45:38 AM at 0746 PATIENT NAME: PIERCE CLARKE [facility] 2019-12-12 17:43:00 [facility] Internal Medicine Prog. Note REPORT#:[id number] REPORT STATUS: Signed DATE:12/12/19 TIME: 1743 PATIENT: PIERCE CLARKE UNIT #: [id number] ROOM/BED: [place] [id number] : 54 AGE: 64 SEX: F ATTEND: Sonny Muniz MD ADM AUTHOR: Herve Gabriel MD * ALL edits or amendments must be made on the electronic/computer document * Subjective Comments: Consult Note Dictated Objective General VS/I O: Vital Signs Date Temp Pulse Resp B/P B/P Mean Pulse Ox FiO2 12/11 97.5 62-73 15-17 131-191/58-87 97-100 Last Documented: Result Date Time Pulse Ox 100 12/11 1429 B/P 131/58 12/11 1429 O2 Delivery Simple mask 12/11 1429 O2 Flow Rate 6.085530 12/11 1429 Pulse 63 12/11 1429 Resp 17 12/11 1429 Temp 97.5 12/11 1232 B/P Mean 101 11/11 1633 Patient Weight Weight (lb): 176 Weight (oz): 12.97 Weight (kg): 80.200 Diagnosis, Assessment Plan Problem List/A P: 1. HTN (hypertension) 2. CHF (congestive heart failure) 3. Afib 4. Renal insufficiency at 1837 RPT #:[id number] END OF REPORT [facility] 2019-12-12 16:45:00 [facility]) Brief Op Note REPORT#:[id number] REPORT STATUS: Signed DATE:12/12/19 TIME: 1645 PATIENT: PIERCE CLARKE UNIT #: [id number] ROOM/BED: [place] [address] : 54 AGE: 64 SEX: F ATTEND: Sonny Muniz MD ADM AUTHOR: JAMES HERNANDEZ MD * ALL edits or amendments must be made on the electronic/computer document * Op/Inv Proc Note - Brief Pre-procedure diagnosis: Left shoulder rotator cuff arthropathy Post-procedure diagnosis: same as pre procedure dx Procedures performed: reverse total shoulder arthroplasty Primary Surgeon: Price Spring Setter(s): Mary Sanches Findings: See Dictation Complications: none Estimated blood loss in ml's: 150ccs Specimens removed/altered: none Drain(s): Hemovac Drain at [address] [facility] #:[id number] END OF REPORT [facility]AT[facility]
[2023-12-28] MEDS ORDERED: droPERidol 5 MG/2 ML VIAL ONE (17:35)
[2023-12-28] MEDS ORDERED: DIPHENHYDRAMINE 50 MG/ML VIAL ONE (17:35)
[2023-12-28] MEDS ORDERED: NA CHLORIDE 0.9% 1,000 ML ONE (17:35)
[2023-12-28 18:25] LABS: Absolute Lymphocytes (CBC) 0.8 K/uL (0.7-4.9); Absolute Monocytes 0.9 K/uL (0.1-1.3); Basophils % 0.5 % (0-1.3); Eosinophils % 0.2 % (0-4.4); Hematocrit 36.3 % (36.0-45.0); Hemoglobin 12.3 g/dL (12.0-15.0); MCHC 33.9 g/dL (32.0-36.0); MCV 91.5 fL (80-100); Monocytes % 9.6 % (3.3-12.3); Neutrophils % 81.7 % (41.7-73.7); Nucleated Red Blood Cells % 0.1 % (0-0); Platelets 253 thou/uL (152-406); RBC Red Blood Cell Count 3.96 M/uL (3.86-4.86); Red Cell Distribution Width 14.8 % (12.1-15.2)
[2023-12-28 18:26] LABS: PT Prothrombin Time 16.9 SECONDS (9.4-12.5); Protime INR 1.53
--- NOTE | 2023-12-28 18:54 | RAD REPORT ---
EXAM: Head Brain Wo Cont HISTORY: fall, [place] COMPARISON: None TECHNIQUE: Multiple contiguous axial images were obtained for a CT of the brain without contrast. Sag ittal and coronal reformats were performed. One or more of the following dose reduction techniques were used: Automated exposure control, adjus tment of the mA and kV according to patient size, and iterative reconstruction. Unless otherwise specified, incidental findings do not require dedicated imaging follow-up. FINDINGS: No evidence of hydrocephalus, intracranial hemorrhage, or extra-axial fluid collection. The brain is normal in morphology. Small ovoid cyst along the mesial right temporal lobe measuring 1 3 mm, may represent a small hippocampal sulcus remnant cyst. The calvarium is intact. The visualized paranasal sinuses and mastoid air cells are essentially clear . IMPRESSION: No evidence of acute intracranial abnormality.
--- NOTE | 2023-12-28 18:58 | RAD REPORT ---
EXAMINATION: ONE VIEW CHEST XR CLINICAL INDICATION: Female, 68 years old.,CHEST PAIN TECHNIQUE: Frontal chest projection is submitted. Examination is limited by patient positioning and t echnique. COMPARISON: 10/27/2023 FINDINGS: Ill-defined nearly rounded peripheral right basal airspace opacity. Stable retrocardiac opacity sugge sting a moderate to large hiatal hernia. Left lung is clear otherwise No pneumothorax or sizable effusion. The heart is normal in size. IMPRESSION: Right basal airspace opacity as above, may reflect pneumonia. Follow-up chest imaging is recommended following appropriate treatment and resolution of any acute symptoms, to exclude an underlying mass.
--- NOTE | 2023-12-28 19:39 | ER ---
Nurse's Notes [facility] Name: Briana Downing Age: 68 yrs Sex: Female : 1955 Arrival Date: 12/28/2023 Time: 17:16 Bed 3 Private MD: Diagnosis: Dyspnea;Confusional arousals Presentation: 12/27 17:19 Chief complaint: Patient states: SOB, LETHARGIC, FEELS "BAD, OUT OF IT" AND "LOOPY". db FEELS LIKE HAS A HEADACHE "LIKE MY HEAD IS GOING TO EXPLODE" STATES SYMPTOMS STARTED THIS AM. 17:22 Coronavirus screen: Client denies travel out of the [place] in the last 14 days. At this db time, the client does not indicate any symptoms associated with coronavirus-19. Ebola Screen: Patient negative for fever greater than or equal to 101.5 degrees Fahrenheit, and additional compatible Ebola Virus Disease symptoms Patient denies exposure to infectious person. Patient denies travel to an Ebola-affected area in the 21 days before illness onset. No symptoms or risks identified at this time. Initial Sepsis Screen: Does the patient meet any 2 criteria? No. Patient's initial sepsis screen is negative. Does the patient have a suspected source of infection? No. Patient's initial sepsis screen is negative. Risk Assessment: Do you want to hurt yourself or someone else? Patient reports no desire to harm self or others. Onset of symptoms was December 28, 2023. 17:22 Method Of Arrival: Ambulatory db 17:22 Acuity: GERMANIA 2 db Triage Assessment: 17:24 General: Appears in no apparent distress. comfortable, Behavior is cooperative, db anxious. Pain: Complains of pain in chest. Neuro: Level of Consciousness is awake, alert, obeys commands, Oriented to person, place, time, situation. Cardiovascular: Reports chest pain, shortness of breath. Cardiovascular: Reports. Respiratory: Airway is patent Respiratory effort is even, unlabored, Respiratory pattern is regular, symmetrical. Respiratory: Reports shortness of breath. Historical: - Allergies: 17:24 No Known Allergies; db - PMHx: 17:24 Anxiety; Hyperlipidemia; Hypertension; Hypothyroidism; Depression; db - Immunization history:: Adult Immunizations unknown. - Infectious Disease History:: Denies. - Social history:: Smoking status: Patient denies any tobacco usage or history of. Screenin:14 [facility] ED Fall Risk Assessment (Adult) History of falling in the last 3 months, ph including since admission Yes- fall prone (multiple falls) (3 pts) Confusion or Disorientation Yes (5 pts) Intoxicated or Sedated No (0 pts) Impaired Gait No (0 pts) Mobility Assist Device Used No (0 pt) Altered Elimination No (0 pt) Score/Fall Risk Level 3 or more points = High Risk Oriented to surroundings, Maintained a safe environment, Hourly rounding (assess needs \\T\\ fall precautionary measures) done, Used ambulatory aids as needed (educated on \\T\\ assisted with). Abuse screen: Denies threats or abuse. Denies injuries from another. Nutritional screening: No deficits noted. Tuberculosis screening: No symptoms or risk factors identified. Assessment: 18:17 General: Appears in no apparent distress. Behavior is calm, cooperative. Pain: ph Complains of pain in chest and head Pain does not radiate. Neuro: Level of Consciousness is awake, alert, obeys commands, Oriented to person, place, time, situation, Reports headache. Cardiovascular: Reports chest pain, lightheadedness. Respiratory: Airway is patent Respiratory effort is even, unlabored, Respiratory pattern is regular, symmetrical. GI: Reports nausea. Derm: Skin is pink, warm \\T\\ dry. 19:52 Reassessment: Patient appears in no apparent distress at this time. Patient and/or bm8 family updated on plan of care and expected duration. Pain level reassessed. Patient is alert, oriented x 3, equal unlabored respirations, skin warm/dry/pink. Patient denies pain at this time. Patient states feeling better. Patient states symptoms have improved. Pain: Denies pain. Pain began suddenly. Vital Signs: 17:22 BP 170 / 80; Pulse 91; Resp 94; Temp 98.5; Pulse Ox 95% ; Weight 68.04 kg; Height 5 ft. db 0 in. ; 18:19 BP 164 / 77; Pulse 86; Resp 18; Pulse Ox 98% on R/A; ph 19:52 BP 162 / 79; Pulse 89; Resp 18; Temp 98.5; Pulse Ox 93% on R/A; Pain 0/10; bm8 17:22 Body Mass Index 29.29 (68.04 kg, 152.4 cm) db 19:52 Pain Scale: Adult bm8 Payette Coma Score: 19:52 Eye Response: spontaneous(4). Motor Response: obeys commands(6). Verbal Response: bm8 oriented(5). Total: 15. ED Course: 17:18 Patient arrived in ED. im 17:20 Octaviano Shelton MD is Attending Physician. ec2 17:24 Triage completed. db 17:25 Arm band placed on right wrist. db 17:43 Shoshana Carrizales, RN is Primary Nurse. ph 17:55 CT Head Brain wo Cont In Process Unspecified. EDMS 18:01 XRAY Chest (1 view) In Process Unspecified. EDMS 18:14 Initial lab(s) drawn, by me, sent to lab. EKG done, by ED staff, reviewed by Octaviano Shelton MD. Inserted saline lock: 22 gauge in left antecubital area, using aseptic technique. Blood collected. Flushed with 10 mL NS. 18:15 Patient has correct armband on for positive identification. Bed in low position. Call ph light in reach. Side rails up X2. Pulse ox on. NIBP on. monitor car operator on. Door closed. Noise minimized. Lights dimmed. Warm blanket given. Pillow given. 18:15 Patient maintains SpO2 saturation greater than 95% on room air. ph 18:18 No provider procedures requiring assistance completed. ph 19:52 Provided Education on: post er care. bm8 19:52 IV discontinued, intact, bleeding controlled, No redness/swelling at site. Pressure bm8 dressing applied. Administered Medications: 18:19 Drug: NS 0.9% IV 1000 ml IV at 1 bolus Per protocol; 1000 mL bolus Route: IV; Rate: 1 ph bolus; Site: left antecubital; 19:54 Follow up: Response: No adverse reaction; IV Status: Completed infusion; IV Intake: bm8 1000ml 18:19 Drug: Droperidol IVP 1.25 mg IVP once Route: IVP; Site: left antecubital; ph 19:54 Follow up: Response: No adverse reaction bm8 18:19 Drug: diphenhydrAMINE IVP 25 mg IVP once Route: IVP; Site: left antecubital; ph 19:53 Follow up: Response: No adverse reaction bm8 Medication: 18:15 VIS not applicable for this client. ph Intake: 19:54 IV: 1000ml; Total: 1000ml. bm8 Outcome: 19:39 Discharge ordered by . ec2 19:52 Discharged to home ambulatory, with family, bm8 19:52 Condition: stable 19:52 Discharge instructions given to patient, family, Instructed on discharge instructions, follow up and referral plans. safety practices, Demonstrated understanding of instructions, follow-up care, medications, 19:54 Patient left the ED. bm8 Signatures: Dispatcher [employer] EDShoshana Mccann RN RN Aleshia Ibarra RN RN db Yenny Carranza Edwin, MD MD ec2 Raul Harden RN RN bm8 Corrections: (The following items were deleted from the chart) 17:24 17:19 Chief complaint: Patient states: SOB, LETHARGIC, FEELS "BAD, OUT OF IT" AND db "LOOPY". STATES SYMPTOMS STARTED THIS AM. db
--- NOTE | 2023-12-28 19:39 | EDPHYS ---
Physician Documentation [facility] Name: Briana Downing Age: 68 yrs Sex: Female : 1955 Arrival Date: 12/28/2023 Time: 17:16 Bed 3 Private MD: ED Physician Octaviano Shelton HPI: 12/27 17:47 This 68 yrs old Female presents to ER via Ambulatory with complaints of ec2 Confusion, Shortness Of Breath. 17:47 Patient arrives today for evaluation of multiple complaints. Patient with some ec2 shortness of breath, some confusion. Some chest tightness. Also with some recent falls. Also complaining of a headache as well.. Historical: - Allergies: 17:24 No Known Allergies; db - PMHx: 17:24 Anxiety; Hyperlipidemia; Hypertension; Hypothyroidism; Depression; db - Immunization history:: Adult Immunizations unknown. - Infectious Disease History:: Denies. - Social history:: Smoking status: Patient denies any tobacco usage or history of. ROS: 17:47 Constitutional: as per hpi ec2 Exam: 17:47 Constitutional: GEN: NAD Head: atraumatic Eyes: EOMI Ears: External ears are ec2 normal. CV: regular rate LUNGS: no respiratory distress ABD: non-distended SKIN: no evidence of rashes MSK: no evidence of trauma, reproducible left upper chest wall TTP without deformities or crepitus. Vital Signs: 17:22 BP 170 / 80; Pulse 91; Resp 94; Temp 98.5; Pulse Ox 95% ; Weight 68.04 kg; Height 5 ft. db 0 in. ; 18:19 BP 164 / 77; Pulse 86; Resp 18; Pulse Ox 98% on R/A; ph 19:52 BP 162 / 79; Pulse 89; Resp 18; Temp 98.5; Pulse Ox 93% on R/A; Pain 0/10; bm8 17:22 Body Mass Index 29.29 (68.04 kg, 152.4 cm) db 19:52 Pain Scale: Adult bm8 Coleman Coma Score: 19:52 Eye Response: spontaneous(4). Motor Response: obeys commands(6). Verbal Response: bm8 oriented(5). Total: 15. MDM: 17:20 Patient medically screened. ec2 17:49 Data reviewed: vital signs. ED course: Patient arrives today for confusion, recent ec2 falls, chest pain, chest tightness. Examination remarkable for well-appearing nontoxic individuals otherwise in no acute distress with a reassuring overall examination, no significant trauma noted on examination. Will obtain lab work, EKG, chest x-ray, CT scan of the head. Differential is broad such as anemia, electrolyte disturbances, intracranial brain bleed. . 18:15 ED course: EKG independently reviewed and interpreted by me, shows normal sinus rhythm, ec2 rate of 81, no acute ST segment elevations, left with no branch block noted.. 18:56 ED course: Metabolic profile is nonactionable, CBC reassuring, coagulation profile ec2 nonactionable, troponin within normal ranges. CT scan of the head shows no acute intracranial abnormality. . 19:38 ED course: On reassessment patient is well-appearing no acute distress. Chest x-ray ec2 shows questionable pneumonia. I discussed results with patient, patient reports no significant cough or infectious symptoms, instructed her if she develops these we can proceed with therapy for pneumonia. Will discharge home. Return precautions given.. 12/27 17:28 Order name: Basic Metabolic Panel; Complete Time: 18:56 ec2 12/27 17:28 Order name: CBC with Diff; Complete Time: 18:56 ec2 12/27 17:28 Order name: PT-INR; Complete Time: 18:56 ec2 12/27 17:28 Order name: Troponin HS; Complete Time: 18:56 ec2 12/27 17:28 Order name: XRAY Chest (1 view); Complete Time: 19:33 ec2 12/27 17:28 Order name: CT Head Brain wo Cont; Complete Time: 18:56 ec2 12/27 17:28 Order name: Cardiac monitoring; Complete Time: 18:19 ec2 12/27 17:28 Order name: EKG - Nurse/Tech; Complete Time: 18:19 ec2 12/27 17:28 Order name: IV Saline Lock; Complete Time: 18:19 ec2 12/27 17:28 Order name: Labs collected and sent; Complete Time: 18:19 ec2 12/27 17:28 Order name: O2 Per Protocol; Complete Time: 18:19 ec2 12/27 17:28 Order name: O2 Sat Monitoring; Complete Time: 18:20 ec2 Administered Medications: 18:19 Drug: NS 0.9% IV 1000 ml IV at 1 bolus Per protocol; 1000 mL bolus Route: IV; Rate: 1 ph bolus; Site: left antecubital; 19:54 Follow up: Response: No adverse reaction; IV Status: Completed infusion; IV Intake: bm8 1000ml 18:19 Drug: Droperidol IVP 1.25 mg IVP once Route: IVP; Site: left antecubital; ph 19:54 Follow up: Response: No adverse reaction bm8 18:19 Drug: diphenhydrAMINE IVP 25 mg IVP once Route: IVP; Site: left antecubital; ph 19:53 Follow up: Response: No adverse reaction bm8 Disposition Summary: 12/28/23 19:39 Discharge Ordered Condition: Stable ec2 Diagnosis - Dyspnea ec2 - Confusional arousals ec2 Followup: ec2 - With: Private Physician - When: - Reason: Re-evaluation by your physician Discharge Instructions: - Discharge Summary Sheet ec2 - Confusion ec2 Forms: - Medication Reconciliation Form ec2 - Antibiotic Education ec2 - Prescription Opioid Use ec2 - Patient Portal Instructions ec2 - Leadership Thank You Letter ec2 Signatures: Dispatcher [employer] Shoshana Gentile RN RN Aleshia Ibarra RN RN Octaviano Shelton MD MD ec2 Raul Harden RN bm8 Corrections: (The following items were deleted from the chart) 17:49 17:47 Patient arrives today for evaluation of multiple complaints. Patient with some ec2 shortness of breath, some confusion. Some chest tightness. Also with some recent falls.. ec2
[2023-12-28 20:16] VITALS: TEMP 98.5
[2023-12-28 20:19] VITALS: BP 162/79; O2SAT 93
--- NOTE | 2023-12-29 12:09 | EKG ---
Test Date: 2023-12-28 Test Time: 18:05:53 Steward/Stewardess Chief Cargo Vessel: JESSICA MEASUREMENT RESULTS: Intervals: Rate: 81 TN: 178 QRSD: 156 QT: 408 QTc: 473 [place]: P: 55 TN: 178 QRS: -54 T: 91 INTERPRETIVE STATEMENTS: Normal sinus rhythm Left axis deviation Left bundle branch block Abnormal ECG Compared to ECG 10/27/2023 14:50:57 No significant changes Electronically Signed On 12-29-23 12:07:21 CDT by Prasanth Zuniga
== END 2023-12-28 19:54 | disposition home or self-care (01) ==
LOC: ER 17:16
DX: R06.00 Dyspnea, unspecified (principal); G47.51 Confusional arousals; R51.9 Headache, unspecified; R07.89 Other chest pain; F41.9 Anxiety disorder, unspecified; I10 Essential (primary) hypertension
CPT/HCPCS: 36415; 70450; 71045; 80048; 84484; 85025; 85610; 93005; 96361; 96374; 96375; 99285; J1200; J1790; J7030

== ENCOUNTER 2023-12-31 22:05 | Inpatient (IN) | payer OTHER ==
--- OUTSIDE RECORDS SUMMARY | 2023-12-31 22:18 | XMS REPORT | Continuity of Care Document ---
Author Name Unknown Address [address] [facility] [address] [place] [address] [facility] [address] [facility] [address] [place] [address] Care Team Providers Care Review Engineer Name Role Phone Pcp, Patient Does Not Have A Primary Care Physic marina Augusto Bishop Attending Clinician Unavailable Sonny Muniz Attending Clinician Unav ailgerard VALDIVIA_Price_Myles_ Attending Clinician Unavail able ROSENDO GIPSON Attending Clinician Unavailab Rosendo Chi MD Attending Clinician [phone] Nurse, [facility] Surgery Gu Attending Clinician Unanichole march Doctor Unassigned, [place] Attending Clinician U Oswald Donald MD Attending Clinician [phone] Sapna Obrien MD Attending Clinician [phone] SAPNA OBRIEN Attending Clinician Frank ilgerard 2, [facility] Attending Clinician Unavailable VIKTORIA BECK Attending Clinician UnavailCAMILA Velasco Attending Clinician Unavailable OSWALD ALMAZAN Attending Clinician Unavailable ONEL HALL Attending Clinician Unavail able Nurse, [facility] Immunization Attending Clinician Unavailable Gilberto STUBBSOnel Attending Clinician SHAYLEE MENON Attending Clinician Unavailisai christina Nurse, [facility] Attending Clinician Unavailable Shaylee Menon MD Attending Clinician [phone] Only, Adc Test Attending Clinician Unavailable Camila Oden MD Attending Clinician [phone] Christiano LEVIN, Silke Ayala Attending Clinician Unavaila ble Only, Ang Db Test Attending Clinician Unavailabl e Unknown, Attending Attending Clinician Unavailab Marietta Durbin Attending Clinician [phone] MARIETTA MATTSON Attending Clinician Unavailab Augusto Noriega Admitting Clinician Unavailable Physician, No Primary or Family Admitting Clinic marina Unavailable SHEA_Price_Myles_ Admitting Clinician Unavail able ROSENDO GIPSON Admitting Clinician Unavailab Rosendo Chi MD Admitting Clinician [phone] Payers Payer Name Policy Type Policy Number Effective Date Expirati on Date Source [place]ICARE [place]: [employer] [id number] 2019 00:00:00 [employer] LIFE \T\ CASUALTY [id number] MEDICARE PART A \T\ B [id number] 2019 00:00:00 [employer] LIFE [id number] 2018 00:00:00 Problems Condition Name Condition Details Condition Category Status Onset Date Resolution Date Last Treatment Date Treating Clinician Comments Source Rupture of rotator cuff of right shoulder Rupture of Rotator Cuff of Right Shoulder Problem Active 2-15 00:00: 00 [facility] Trigger middle finger of right hand Trigger middle finger of right hand Disease Active 9 00:00: 00 [facility] acute hospital Trigger middle finger of left hand Trigger middle finger of left hand Disease Active 3-24 00:00: 00 Overview: Formattin g of this note might be different from the original. Added automatic ally from request for surgery [id number] General acute hospital Pain of right shoulder joint Pain of [...] neck Disease Active 2020-04 014 00:00: 00 [facility] acute hospital Overweight (BMI 25.0-29.9) Overweight (BMI 25.0-29.9) Disease Active 2020-04 0-14 00:00: 00 [facility] acute hospital Localized swelling, mass and lump, neck Localized swelling, mass and lump, neck Disease Active 2020-04 014 00:00: 00 [facility] acute hospital Acquired trigger finger of left middle finger Acquired Trigger Finger of Left Middle Finger Problem Active 06 00:00: 00 [facility] Trigger finger of right hand Trigger Finger of Right Hand Problem Active 08-07 00:00: 00 [facility] Screening for diabetes mellitus (DM) Screening for diabetes mellitus (DM) Disease Active 06-07 00:00: 00 [facility] acute hospital Senile osteoporos is Senile osteoporos is Disease Active 06-07 00:00: 00 [facility] acute hospital 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 systolic and diastolic congestive heart failure Disease Active 06-03 00:00: 00 [facility] acute hospital Chronic atrial fibrillati on Chronic atrial fibrillati on Disease Active 06-03 00:00: 00 [facility] acute hospital Essential hypertensi on Essential hypertensi on Disease Active - 00:00: 00 [facility] acute hospital Anxiety, generalize d Anxiety, generalize d Disease Active - 00:00: 00 [facility] acute hospital Acquired hypothyroi dism Acquired hypothyroi dism Disease Active - 00:00: 00 [facility] acute hospital 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 Disease Active - 00:00: 00 [facility] acute hospital Need for hepatitis C screening test Need for hepatitis C screening test Disease Active 3-02 00:00: 00 [facility] History of operative procedure on shoulder History [...] INGREDI Active Rash 2022-04 0-03 00:00: 00 General acute hospital Latex Drug Allergy Active Rash 2022-04 0-03 00:00: 00 Topical from bandaids [facility] adhesive tape DA Active CA 8 00:00: 00 [facility] adhesive tape DA Active CA SKIN TEARS 8 00:00: 00 [facility] No Known Drug Allergie s DA Active U 04-11 00:00: 00 [facility] No Known Drug Allergie s DA Active U 04-11 00:00: 00 [facility] Latex Allergy to substanc e Active [facility] NO KNOWN ALLERGIE S Drug Class Active General acute hospital Social History Social Habit Start Date Stop Date Quantity Comments Source [facility] Alcohol Comment [facility] Alcohol intake 2023-01-11 00:00:00 2023-01-11 00:00:00 1.14 /d [facility] History of Social function 2023-01-10 00:00:00 2023-01-10 00:00:00 [facility] Exposure to SARS-CoV-2 (event) 2022-07-16 00:00:00 2022-07-26 13:30:00 Not sure [facility] Tobacco use and exposure 2020-06-03 00:00:00 2020-06-03 00:00:00 Smokeless tobacco non-user [facility] History SDOH Alcohol Frequency 2020-06-03 00:00:00 2020-06-03 00:00:00 5 [facility] History SDOH Alcohol Std Drinks 2020-06-03 00:00:00 2020-06-03 00:00:00 1 [facility] History SDOH Alcohol Binge 2020-06-03 00:00:00 2020-06-03 00:00:00 2 [facility] Sex Ass[birth year] At 1955 00:00:00 1955 00:00:00 [facility] Smoking Status Start Date Stop Date Source Unknown if ever smoked [facility] Never smoked tobacco General acute hospital Medications Ordered Medication Name Filled Medication Name Start Date Stop Date Current Medication? Ordering Clinician Indication Dosage Frequency Signature (SIG) Comments Components Source LORazepam 1 mg tablet 2022-04 13:24: 46 Yes 1mg Take 1 tablet by mouth in the morning and 1 tablet in the evening. [facility] acute hospital venlafaxine XR 150 mg 24 hr capsule 2022-04 13:24: 46 Yes 150mg Take 1 capsule by mouth in the morning and 1 capsule in the evening. [facility] acute hospital buPROPion XL 150 mg 24 hr tablet 2022-04 13:24: 46 Yes 150mg Take 1 tablet by mouth in the morning. [facility] acute hospital rivaroxaban 20 mg tablet 2022-04 13:24: 46 Yes Take by mouth daily. [facility] acute hospital carvediloL 25 mg tablet 2022-04 13:24: 46 Yes 25mg Take 1 tablet by mouth in the morning and 1 tablet in the evening. Take with meals. [facility] acute hospital furosemide 20 mg tablet 2022-04 13:24: 46 Yes 20mg Take 1 tablet by mouth in the morning. [facility] acute hospital amiodarone 200 mg tablet 2022-04 13:24: 46 Yes 200mg Take 1 tablet by mouth in the morning. [facility] acute hospital sacubitriL- valsartan (ENTRESTO) 24-26 mg tablet 2022-04 13:24: 46 Yes 1{tbl} Take 1 tablet by mouth in the morning and 1 tablet in the evening. [facility] acute hospital amLODIPine 5 mg tablet 2022-04 13:24: 46 Yes 5mg Take 1 tablet by mouth in the morning. [facility] acute hospital liothyronin e 5 mcg tablet 2022-04 13:24: 46 Yes 5ug Take 1 tablet by mouth in the morning. [facility] acute hospital lactated ringers IV infusion 1,000 mL 2022-04 14:45: 00 Yes 1000mL at 75 mL/hr, 1,000 mL, IV Infusion, CONTINUOUS , Starting on Tue01/10/23 at 0945, Until Discontinu ed, Routine, PACU [facility] acute hospital FENTanyl PF (SUBLIMAZE (PF)) injection 25 mcg 2022-04 14:39: 27 Yes 25ug 25 mcg, Slow IV Push, Q5MIN PRN, 4 doses, Starting on Tue01/10/23 at 0939, Until Discontinu ed, Routine, Pain (scale 4-6), PACU [facility] sodium chloride 0.9 % irrigation solution 2022-04 14:35: 00 01-10 14:46 :49 No PRN, Starting on Tue01/10/23 at 0935, Until Tue01/10/23 at 0946, Intra-op [facility] acute hospital bupivacaine (preserv free) (SENSORCAIN E MPF) 0.25 % (2.5 mg/mL) 30 mL, lidocaine 1% (PF) (XYLOCAINE) 30 mL 2022-04 14:15: 00 01-10 14:46 :49 No PRN, Starting on Tue01/10/23 at 0915, Intra-op [facility] acute hospital lactated ringers IV infusion 1,000 mL 2022-04 13:00: 00 01-10 13:12 :00 No 1000mL at 42 mL/hr, 1,000 mL, IV Infusion, ONCE, 1 dose, On Tue01/10/23 at 0800, Routine, DSU Pre-op [facility] acute hospital LORazepam 1 mg tablet 2022-04 10:49: 14 Yes 1mg Take 1 tablet by mouth in the morning and 1 tablet in the evening. [facility] acute hospital venlafaxine XR 150 mg 24 hr capsule 2022-04 10:49: 14 Yes 150mg Take 1 capsule by mouth in the morning and 1 capsule in the evening. [facility] acute hospital buPROPion XL 150 mg 24 hr tablet 2022-04 10:49: 14 Yes 150mg Take 1 tablet by mouth in the morning. [facility] acute hospital rivaroxaban 20 mg tablet 2022-04 10:49: 14 Yes Take by mouth daily. [facility] acute hospital carvediloL 25 mg tablet 2022-04 10:49: 14 Yes 25mg Take 1 tablet by mouth in the morning and 1 tablet in the evening. Take with meals. [facility] acute hospital furosemide 20 mg tablet 2022-04 10:49: 14 Yes 20mg Take 1 tablet by mouth in the morning. [facility] acute hospital amiodarone 200 mg tablet 2022-04 10:49: 14 Yes 200mg Take 1 tablet by mouth in the morning. [facility] acute hospital sacubitriL- valsartan (ENTRESTO) 24-26 mg tablet 2022-04 10:49: 14 Yes 1{tbl} Take 1 tablet by mouth in the morning and 1 tablet in the evening. [facility] acute hospital amLODIPine 5 mg tablet 2022-04 10:49: 14 Yes 5mg Take 1 tablet by mouth in the morning. [facility] acute hospital liothyronin e 5 mcg tablet 2022-04 10:49: 14 Yes 5ug Take 1 tablet by mouth in the morning. [facility] acute hospital ondansetron 4 mg tablet 2022-04 00:00: 00 01-16 04:59 :00 No [id number] 4mg Take 1 tablet by mouth every 8 (eight) hours as needed for Nausea and Vomiting (N/V) for up to 5 days. [facility] acute hospital traMADoL 50 mg tablet 2022-04 00:00: 00 01-14 04:59 :00 No [id number] 100mg Take 2 tablets by mouth every 6 (six) hours as needed for Pain (scale 7-10) (Can take 1-2 tablets every 6 hours as needed for pain, not to exceed 400mg in one day .) for up to 3 days. Indication s: acute pain [facility] acute hospital rivaroxaban 20 mg tablet 12-27 14:49: 29 Yes Take by mouth daily. [facility] acute hospital carvediloL 25 mg tablet 12-27 14:49: 29 Yes 25mg Take 1 tablet by mouth in the morning and 1 tablet in the evening. Take with meals. [facility] acute hospital amiodarone 200 mg tablet 12-27 14:49: 29 Yes 200mg Take 1 tablet by mouth in the morning. [facility] acute hospital LORazepam 1 mg tablet 10-18 13:17: 17 Yes 1mg Take 1 tablet by mouth in the morning and 1 tablet in the evening. [facility] acute hospital venlafaxine XR 150 mg 24 hr capsule 10-18 13:17: 17 Yes 150mg Take 1 capsule by mouth daily with breakfast. [facility] acute hospital buPROPion XL 150 mg 24 hr tablet 10-18 13:17: 17 Yes 150mg Take 1 tablet by mouth in the morning. [facility] acute hospital furosemide 40 mg tablet 10-18 13:17: 17 Yes 40mg Take 1 tablet by mouth in the morning. [facility] acute hospital sacubitriL- valsartan (ENTRESTO) 24-26 mg tablet 17 13:17: 17 Yes 1{tbl} Take 1 tablet by mouth in the morning and 1 tablet in the evening. [facility] acute hospital lactated ringers IV infusion 1,000 mL 07-12 16:00: 00 Yes 1000mL at 100 mL/hr, 1,000 mL, IV Infusion, CONTINUOUS , Starting on Tue07/12/22 at 1100, Until Discontinu ed, Routine, PACU [facility] acute hospital HYDROcodone -acetaminop hen (NORCO 5) 5-325 mg tablet 1 tablet 07-12 16:00: 00 07-12 15:55 :00 No 1{tbl} 1 tablet, Oral, ONCE, 1 dose, On Tue07/12/22 at 1100, Routine, PACU [facility] acute hospital HYDROmorphO ne (DILAUDID) injection 0.2 mg 07-12 15:50: 09 Yes .2mg 0.2 mg, Slow IV Push, Q5MIN PRN, 10 doses, Starting on Tue07/12/22 at 1050, Until Discontinu ed, Routine, Pain (scale 7-10), PACU
Us e approved by (Faculty): PACU USE -ANESTHESI A SERVICE-HY DROMORPHON E INJECTIONS General acute hospital FENTanyl PF (SUBLIMAZE (PF)) injection 25 mcg 07-12 15:50: 09 Yes 25ug 25 mcg, Slow IV Push, Q5MIN PRN, 4 doses, Starting on Tue07/12/22 at 1050, Until Discontinu ed, Routine, Pain (scale 4-6), PACU [facility] acute hospital ondansetron (ZOFRAN (PF)) injection 4 mg 07-12 15:50: 09 Yes 4mg 4 mg, Slow IV Push, PRN, 1 dose, Starting on Tue07/12/22 at 1050, Until Discontinu ed, Routine, Nausea and Vomiting (N/V), PACU [facility] acute hospital sodium chloride 0.9 % irrigation solution 07-12 15:03: 00 07-12 16:02 :35 No PRN, Starting on Tue07/12/22 at 1003, Until Tue07/12/22 at 1102, Intra-op [facility] acute hospital bupivacaine (preserv free) (SENSORCAIN E MPF) 0.25 % (2.5 mg/mL) 3 mL, lidocaine 1% (PF) (XYLOCAINE) 7 mL 07-12 15:00: 00 07-12 16:02 :35 No PRN, Starting on Tue07/12/22 at 1000, Intra-op [facility] acute hospital lactated ringers IV infusion 1,000 mL 07-12 14:30: 00 07-12 14:36 :00 No 1000mL at 42 mL/hr, 1,000 mL, IV Infusion, ONCE, 1 dose, On Tue07/12/22 at 0930, Routine, DSU Pre-op [facility] acute hospital LORazepam 1 mg tablet 07-12 11:41: 51 Yes 1mg Take 1 tablet by mouth in the morning and 1 tablet in the evening. [facility] acute hospital venlafaxine XR 150 mg 24 hr capsule 07-12 11:41: 51 Yes 150mg Take 1 capsule by mouth daily with breakfast. [facility] acute hospital buPROPion XL 150 mg 24 hr tablet 07-12 11:41: 51 Yes 150mg Take 1 tablet by mouth in the morning. [facility] acute hospital rivaroxaban 20 mg tablet 07-12 11:41: 51 Yes Take by mouth daily. [facility] acute hospital carvediloL 25 mg tablet 07-12 11:41: 51 Yes 25mg Take 1 tablet by mouth in the morning and 1 tablet in the evening. Take with meals. [facility] acute hospital furosemide 40 mg tablet 07-12 11:41: 51 Yes 40mg Take 1 tablet by mouth in the morning. [facility] acute hospital amiodarone 200 mg tablet 07-12 11:41: 51 Yes 200mg Take 1 tablet by mouth in the morning. [facility] acute hospital sacubitriL- valsartan (ENTRESTO) 24-26 mg tablet 07-12 11:41: 51 Yes 1{tbl} Take 1 tablet by mouth in the morning and 1 tablet in the evening. [facility] acute hospital traMADoL 50 mg tablet 07-12 00:00: 00 01-10 00:00 :00 No [id number] 50mg Take 1 tablet by mouth every 6 (six) hours as needed for Pain (scale 4-6) for up to 10 doses. Indication s: acute pain [facility] acute hospital triamcinolo ne acetonide (KENALOG) injection 10 mg 06-01 02:30: 00 06-01 01:47 :00 No [id number] 10mg [facility] LORazepam 1 mg tablet 2021-04 13:52: 32 Yes 1mg Take 1 mg by mouth 2 (two) times daily. [facility] acute hospital venlafaxine XR 150 mg 24 hr capsule 2021-04 13:52: 32 Yes 150mg Take 150 mg by mouth daily with breakfast. [facility] acute hospital buPROPion XL 150 mg 24 hr tablet 2021-04 13:52: 32 Yes 150mg Take 150 mg by mouth daily. [facility] acute hospital rivaroxaban 20 mg tablet 2021-04 13:52: 32 Yes Take by mouth daily. [facility] acute hospital carvediloL 25 mg tablet 2021-04 13:52: 32 Yes 25mg Take 25 mg by mouth 2 (two) times daily with meals. [facility] acute hospital furosemide 40 mg tablet 2021-04 13:52: 32 Yes 40mg Take 40 mg by mouth daily. [facility] acute hospital amiodarone 200 mg tablet 2021-04 13:52: 32 Yes 200mg Take 200 mg by mouth daily. [facility] acute hospital sacubitriL- valsartan (ENTRESTO) 24-26 mg tablet 2021-04 13:52: 32 Yes 1{tbl} Take 1 tablet by mouth 2 (two) times daily. [facility] acute hospital levothyroxi ne 100 mcg tablet 09-14 00:00: 00 Yes [id number] 100ug Take 1 tablet by mouth every morning. [facility] acute hospital venlafaxine XR (EFFEXOR XR) 150 mg 24 hr capsule 06-05 15:25: 15 Yes 150mg Take 150 mg by mouth daily with breakfast. [facility] acute hospital sacubitriL- valsartan (ENTRESTO) 24-26 mg tablet 06-05 15:25: 14 Yes 1{tbl} Take 1 tablet by mouth 2 (two) times daily. [facility] acute hospital rivaroxaban (XARELTO) 20 mg tablet 06-05 15:25: 14 Yes Take by mouth daily. [facility] acute hospital LORazepam 1 mg tablet 06-05 15:25: 12 Yes 1mg Take 1 mg by mouth 2 (two) times daily. [facility] acute hospital furosemide (LASIX) 40 mg tablet 06-05 15:25: 10 Yes 40mg Take 40 mg by mouth daily. [facility] acute hospital carvediloL 25 mg tablet 06-05 15:25: 08 Yes 25mg Take 25 mg by mouth 2 (two) times daily with meals. [facility] acute hospital buPROPion XL 150 mg 24 hr tablet 06-05 15:25: 06 Yes 150mg Take 150 mg by mouth daily. [facility] acute hospital amiodarone 200 mg tablet 06-05 15:25: 00 Yes 200mg Take 200 mg by mouth daily. [facility] acute hospital Nitrofurant oin&Nit. Macrocryst (MACROBID) 100 mg capsule 2020-04 00:00: 00 06-05 00:00 :00 No [id number] 100mg Take 1 capsule by mouth 2 (two) times daily. [facility] acute hospital fluticasone propionate 50 mcg/actuati on nasal spray 2020-04 00:00: 00 06-05 00:00 :00 No [id number] 2{spray } Use 2 Sprays in each nostril daily. [facility] acute hospital levothyroxi ne 100 mcg tablet 2020-04 00:00: 00 09-14 00:00 :00 No [id number] 100ug Take 1 tablet by mouth every morning. [facility] orly [facility] Effexor XR 150 mg capsule,ext ended release [...] MODERNA 0.25ML BOOSTER VACCINE 2021-02-06 00:00:00 Completed [facility] SARS-COV-2 COVID-19 MODERNA 0.25ML BOOSTER VACCINE 2021-02-06 00:00:00 Completed [facility] SARS-COV-2 COVID-19 MODERNA 0.25ML BOOSTER VACCINE 2021-02-06 00:00:00 Completed [facility] SARS-COV-2 COVID-19 MODERNA 0.25ML BOOSTER VACCINE 2021-02-06 00:00:00 Completed [facility] SARS-COV-2 COVID-19 MODERNA 0.25ML BOOSTER VACCINE 2021-02-06 00:00:00 Completed [facility] SARS-COV-2 COVID-19 MODERNA 0.25ML BOOSTER VACCINE 2021-02-06 00:00:00 Completed [facility] SARS-COV-2 COVID-19 MODERNA 0.25ML BOOSTER VACCINE 2021-02-06 00:00:00 Completed [facility] SARS-COV-2 COVID-19 MODERNA 0.25ML BOOSTER VACCINE 2021-02-06 00:00:00 Completed [facility] SARS-COV-2 COVID-19 MODERNA 0.25ML BOOSTER VACCINE 2021-02-06 00:00:00 Completed [facility] SARS-COV-2 COVID-19 MODERNA 0.25ML BOOSTER VACCINE 2021-02-06 00:00:00 Completed [facility] SARS-COV-2 COVID-19 MODERNA 0.25ML BOOSTER VACCINE 2021-02-06 00:00:00 Completed [facility] SARS-COV-2 COVID-19 MODERNA 0.25ML BOOSTER VACCINE 2021-02-06 00:00:00 Completed [facility] SARS-COV-2 COVID-19 MODERNA 0.25ML BOOSTER VACCINE 2021-02-06 00:00:00 Completed [facility] SARS-COV-2 COVID-19 MODERNA 0.25ML BOOSTER VACCINE 2021-02-06 00:00:00 Completed [facility] SARS-COV-2 COVID-19 MODERNA 0.25ML BOOSTER VACCINE 2021-02-06 00:00:00 Completed [facility] SARS-COV-2 COVID-19 MODERNA 0.25ML BOOSTER VACCINE 2021-02-06 00:00:00 Completed [facility] SARS-COV-2 COVID-19 MODERNA 0.25ML BOOSTER VACCINE 2021-02-06 00:00:00 Completed [facility] SARS-COV-2 COVID-19 MODERNA 0.25ML BOOSTER VACCINE 2021-02-06 00:00:00 Completed [facility] SARS-COV-2 COVID-19 MODERNA 0.25ML BOOSTER VACCINE 2021-02-06 00:00:00 Completed [facility] SARS-COV-2 COVID-19 MODERNA 0.25ML BOOSTER VACCINE 2021-02-06 00:00:00 Completed [facility] SARS-COV-2 COVID-19 MODERNA 0.25ML BOOSTER VACCINE 2021-02-06 00:00:00 Completed [facility] SARS-COV-2 COVID-19 MODERNA 0.25ML BOOSTER VACCINE 2021-02-06 00:00:00 Completed [facility] SARS-COV-2 COVID-19 MODERNA 0.25ML BOOSTER VACCINE 2021-02-06 00:00:00 Completed [facility] SARS-COV-2 COVID-19 MODERNA 0.25ML BOOSTER VACCINE 2021-02-06 00:00:00 Completed [facility] SARS-COV-2 COVID-19 MODERNA 0.25ML BOOSTER VACCINE 2021-02-06 00:00:00 Completed [facility] SARS-COV-2 COVID-19 MODERNA 0.25ML BOOSTER VACCINE 2021-02-06 00:00:00 Completed [facility] SARS-COV-2 COVID-19 MODERNA 0.25ML BOOSTER VACCINE 2021-02-06 00:00:00 Completed [facility] SARS-COV-2 COVID-19 MODERNA 0.25ML BOOSTER VACCINE 2021-02-06 00:00:00 Completed [facility] SARS-COV-2 COVID-19 MODERNA 0.25ML BOOSTER VACCINE 2021-02-06 00:00:00 Completed [facility] SARS-COV-2 COVID-19 MODERNA 0.25ML BOOSTER VACCINE 2021-02-06 00:00:00 Completed [facility] SARS-COV-2 COVID-19 MODERNA 0.25ML BOOSTER VACCINE 2021-02-06 00:00:00 Completed [facility] SARS-COV-2 COVID-19 MODERNA 0.25ML BOOSTER VACCINE 2021-02-06 00:00:00 Completed [facility] SARS-COV-2 COVID-19 MODERNA 0.25ML BOOSTER VACCINE 2021-02-06 00:00:00 Completed [facility] SARS-COV-2 COVID-19 MODERNA BOOSTER VACCINE 2021-02-06 00:00:00 Completed [facility] SARS-COV-2 COVID-19 MODERNA BOOSTER VACCINE 2021-02-06 00:00:00 Completed [facility] SARS-COV-2 COVID-19 MODERNA 0.25ML BOOSTER VACCINE 2021-02-06 00:00:00 Completed [facility] SARS-COV-2 COVID-19 MODERNA 0.25ML BOOSTER VACCINE 2021-02-06 00:00:00 Completed [facility] SARS-COV-2 COVID-19 MODERNA 0.25ML BOOSTER VACCINE 2021-02-06 00:00:00 Completed [facility] SARS-COV-2 COVID-19 MODERNA 0.25ML BOOSTER VACCINE 2021-02-06 00:00:00 Completed [facility] Influenza High Dose 2021-01-01 00:00:00 Completed [facility] Influenza High Dose 2021-01-01 00:00:00 Completed [facility] Influenza High Dose 2021-01-01 00:00:00 Completed [facility] Influenza High Dose 2021-01-01 00:00:00 Completed [facility] Influenza High Dose 2021-01-01 00:00:00 Completed [facility] Influenza High Dose 2021-01-01 00:00:00 Completed [facility] Influenza High Dose 2021-01-01 00:00:00 Completed [facility] Influenza High Dose 2021-01-01 00:00:00 Completed [facility] Influenza High Dose 2021-01-01 00:00:00 Completed [facility] Influenza High Dose 2021-01-01 00:00:00 Completed [facility] Influenza High Dose 2021-01-01 00:00:00 Completed [facility] Influenza High Dose 2021-01-01 00:00:00 Completed [facility] Influenza High Dose 2021-01-01 00:00:00 Completed [facility] Influenza High Dose 2021-01-01 00:00:00 Completed [facility] Influenza High Dose 2021-01-01 00:00:00 Completed [facility] Influenza High Dose 2021-01-01 00:00:00 Completed [facility] Influenza High Dose 2021-01-01 00:00:00 Completed [facility] Influenza High Dose 2021-01-01 00:00:00 Completed [facility] Influenza High Dose 2021-01-01 00:00:00 Completed [facility] Influenza High Dose 2021-01-01 00:00:00 Completed [facility] Influenza High Dose 2021-01-01 00:00:00 Completed [facility] Influenza High Dose 2021-01-01 00:00:00 Completed [facility] Influenza High Dose 2021-01-01 00:00:00 Completed [facility] Influenza High Dose 2021-01-01 00:00:00 Completed [facility] Influenza High Dose 2021-01-01 00:00:00 Completed [facility] Influenza High Dose 2021-01-01 00:00:00 Completed [facility] Influenza High Dose 2021-01-01 00:00:00 Completed [facility] Influenza High Dose 2021-01-01 00:00:00 Completed [facility] Influenza High Dose 2021-01-01 00:00:00 Completed [facility] Influenza High Dose 2021-01-01 00:00:00 Completed [facility] Influenza High Dose 2021-01-01 00:00:00 Completed [facility] Influenza High Dose 2021-01-01 00:00:00 Completed [facility] Influenza High Dose 2021-01-01 00:00:00 Completed [facility] Influenza High Dose 2021-01-01 00:00:00 Completed [facility] Influenza High Dose 2021-01-01 00:00:00 Completed [facility] Influenza High Dose 2021-01-01 00:00:00 Completed [facility] Influenza High Dose 2021-01-01 00:00:00 Completed [facility] Influenza High Dose 2021-01-01 00:00:00 Completed [facility] Influenza High Dose 2021-01-01 00:00:00 Completed [facility] SARS-COV-2 COVID-19 MODERNA 12+ YRS VACCINE 2020-06-23 00:00:00 Completed [facility] SARS-COV-2 COVID-19 MODERNA 12+ YRS VACCINE 2020-06-23 00:00:00 Completed [facility] SARS-COV-2 COVID-19 MODERNA 12+ YRS VACCINE 2020-06-23 00:00:00 Completed [facility] SARS-COV-2 COVID-19 MODERNA 12+ YRS VACCINE 2020-06-23 00:00:00 Completed [facility] SARS-COV-2 COVID-19 MODERNA 12+ YRS VACCINE 2020-06-23 00:00:00 Completed [facility] SARS-COV-2 COVID-19 MODERNA 12+ YRS VACCINE 2020-06-23 00:00:00 Completed [facility] SARS-COV-2 COVID-19 MODERNA 12+ YRS VACCINE 2020-06-23 00:00:00 Completed [facility] SARS-COV-2 COVID-19 MODERNA 12+ YRS VACCINE 2020-06-23 00:00:00 Completed [facility] SARS-COV-2 COVID-19 MODERNA 12+ YRS VACCINE 2020-06-23 00:00:00 Completed [facility] SARS-COV-2 COVID-19 MODERNA 12+ YRS VACCINE 2020-06-23 00:00:00 Completed [facility] SARS-COV-2 COVID-19 MODERNA 12+ YRS VACCINE 2020-06-23 00:00:00 Completed [facility] SARS-COV-2 COVID-19 MODERNA 12+ YRS VACCINE 2020-06-23 00:00:00 Completed [facility] SARS-COV-2 COVID-19 MODERNA 12+ YRS VACCINE 2020-06-23 00:00:00 Completed [facility] SARS-COV-2 COVID-19 MODERNA 12+ YRS VACCINE 2020-06-23 00:00:00 Completed [facility] SARS-COV-2 COVID-19 MODERNA 12+ YRS VACCINE 2020-06-23 00:00:00 Completed [facility] SARS-COV-2 COVID-19 MODERNA 12+ YRS VACCINE 2020-06-23 00:00:00 Completed [facility] SARS-COV-2 COVID-19 MODERNA 12+ YRS VACCINE 2020-06-23 00:00:00 Completed [facility] SARS-COV-2 COVID-19 MODERNA 12+ YRS VACCINE 2020-06-23 00:00:00 Completed [facility] SARS-COV-2 COVID-19 MODERNA 12+ YRS VACCINE 2020-06-23 00:00:00 Completed [facility] SARS-COV-2 COVID-19 MODERNA 12+ YRS VACCINE 2020-06-23 00:00:00 Completed [facility] SARS-COV-2 COVID-19 MODERNA 12+ YRS VACCINE 2020-06-23 00:00:00 Completed [facility] SARS-COV-2 COVID-19 MODERNA 12+ YRS VACCINE 2020-06-23 00:00:00 Completed [facility] SARS-COV-2 COVID-19 MODERNA 12+ YRS VACCINE 2020-06-23 00:00:00 Completed [facility] SARS-COV-2 COVID-19 MODERNA 12+ YRS VACCINE 2020-06-23 00:00:00 Completed [facility] SARS-COV-2 COVID-19 MODERNA 12+ YRS VACCINE 2020-06-23 00:00:00 Completed [facility] SARS-COV-2 COVID-19 MODERNA 12+ YRS VACCINE 2020-06-23 00:00:00 Completed [facility] SARS-COV-2 COVID-19 MODERNA 12+ YRS VACCINE 2020-06-23 00:00:00 Completed [facility] SARS-COV-2 COVID-19 MODERNA 12+ YRS VACCINE 2020-06-23 00:00:00 Completed [facility] SARS-COV-2 COVID-19 MODERNA 12+ YRS VACCINE 2020-06-23 00:00:00 Completed [facility] SARS-COV-2 COVID-19 MODERNA 12+ YRS VACCINE 2020-06-23 00:00:00 Completed [facility] SARS-COV-2 COVID-19 MODERNA 12+ YRS VACCINE 2020-06-23 00:00:00 Completed [facility] SARS-COV-2 COVID-19 MODERNA 12+ YRS VACCINE 2020-06-23 00:00:00 Completed [facility] SARS-COV-2 COVID-19 MODERNA 12+ YRS VACCINE 2020-06-23 00:00:00 Completed [facility] SARS-COV-2 COVID-19 MODERNA VACCINE 2020-06-23 00:00:00 Completed [facility] SARS-COV-2 COVID-19 MODERNA VACCINE 2020-06-23 00:00:00 Completed [facility] SARS-COV-2 COVID-19 MODERNA VACCINE 2020-06-23 00:00:00 Completed [facility] SARS-COV-2 COVID-19 MODERNA VACCINE 2020-06-23 00:00:00 Completed [facility] SARS-COV-2 COVID-19 MODERNA 12+ YRS VACCINE 2020-06-23 00:00:00 Completed [facility] SARS-COV-2 COVID-19 MODERNA 12+ YRS VACCINE 2020-06-23 00:00:00 Completed [facility] SARS-COV-2 COVID-19 MODERNA 12+ YRS VACCINE 2020-05-28 00:00:00 Completed [facility] SARS-COV-2 COVID-19 MODERNA 12+ YRS VACCINE 2020-05-28 00:00:00 Completed [facility] SARS-COV-2 COVID-19 MODERNA 12+ YRS VACCINE 2020-05-28 00:00:00 Completed [facility] SARS-COV-2 COVID-19 MODERNA 12+ YRS VACCINE 2020-05-28 00:00:00 Completed [facility] SARS-COV-2 COVID-19 MODERNA 12+ YRS VACCINE 2020-05-28 00:00:00 Completed [facility] SARS-COV-2 COVID-19 MODERNA 12+ YRS VACCINE 2020-05-28 00:00:00 Completed [facility] SARS-COV-2 COVID-19 MODERNA 12+ YRS VACCINE 2020-05-28 00:00:00 Completed [facility] SARS-COV-2 COVID-19 MODERNA 12+ YRS VACCINE 2020-05-28 00:00:00 Completed [facility] SARS-COV-2 COVID-19 MODERNA 12+ YRS VACCINE 2020-05-28 00:00:00 Completed [facility] SARS-COV-2 COVID-19 MODERNA 12+ YRS VACCINE 2020-05-28 00:00:00 Completed [facility] SARS-COV-2 COVID-19 MODERNA 12+ YRS VACCINE 2020-05-28 00:00:00 Completed [facility] SARS-COV-2 COVID-19 MODERNA 12+ YRS VACCINE 2020-05-28 00:00:00 Completed [facility] SARS-COV-2 COVID-19 MODERNA 12+ YRS VACCINE 2020-05-28 00:00:00 Completed [facility] SARS-COV-2 COVID-19 MODERNA 12+ YRS VACCINE 2020-05-28 00:00:00 Completed [facility] SARS-COV-2 COVID-19 MODERNA 12+ YRS VACCINE 2020-05-28 00:00:00 Completed [facility] SARS-COV-2 COVID-19 MODERNA 12+ YRS VACCINE 2020-05-28 00:00:00 Completed [facility] SARS-COV-2 COVID-19 MODERNA 12+ YRS VACCINE 2020-05-28 00:00:00 Completed [facility] SARS-COV-2 COVID-19 MODERNA 12+ YRS VACCINE 2020-05-28 00:00:00 Completed [facility] SARS-COV-2 COVID-19 MODERNA 12+ YRS VACCINE 2020-05-28 00:00:00 Completed [facility] SARS-COV-2 COVID-19 MODERNA 12+ YRS VACCINE 2020-05-28 00:00:00 Completed [facility] SARS-COV-2 COVID-19 MODERNA 12+ YRS VACCINE 2020-05-28 00:00:00 Completed [facility] SARS-COV-2 COVID-19 MODERNA 12+ YRS VACCINE 2020-05-28 00:00:00 Completed [facility] SARS-COV-2 COVID-19 MODERNA 12+ YRS VACCINE 2020-05-28 00:00:00 Completed [facility] SARS-COV-2 COVID-19 MODERNA 12+ YRS VACCINE 2020-05-28 00:00:00 Completed [facility] SARS-COV-2 COVID-19 MODERNA 12+ YRS VACCINE 2020-05-28 00:00:00 Completed [facility] SARS-COV-2 COVID-19 MODERNA 12+ YRS VACCINE 2020-05-28 00:00:00 Completed [facility] SARS-COV-2 COVID-19 MODERNA 12+ YRS VACCINE 2020-05-28 00:00:00 Completed [facility] SARS-COV-2 COVID-19 MODERNA 12+ YRS VACCINE 2020-05-28 00:00:00 Completed [facility] SARS-COV-2 COVID-19 MODERNA 12+ YRS VACCINE 2020-05-28 00:00:00 Completed [facility] SARS-COV-2 COVID-19 MODERNA 12+ YRS VACCINE 2020-05-28 00:00:00 Completed [facility] SARS-COV-2 COVID-19 MODERNA 12+ YRS VACCINE 2020-05-28 00:00:00 Completed [facility] SARS-COV-2 COVID-19 MODERNA 12+ YRS VACCINE 2020-05-28 00:00:00 Completed [facility] SARS-COV-2 COVID-19 MODERNA 12+ YRS VACCINE 2020-05-28 00:00:00 Completed [facility] SARS-COV-2 COVID-19 MODERNA VACCINE 2020-05-28 00:00:00 Completed [facility] SARS-COV-2 COVID-19 MODERNA VACCINE 2020-05-28 00:00:00 Completed [facility] SARS-COV-2 COVID-19 MODERNA VACCINE 2020-05-28 00:00:00 Completed [facility] SARS-COV-2 COVID-19 MODERNA VACCINE 2020-05-28 00:00:00 Completed [facility] SARS-COV-2 COVID-19 MODERNA 12+ YRS VACCINE 2020-05-28 00:00:00 Completed [facility] SARS-COV-2 COVID-19 MODERNA 12+ YRS VACCINE 2020-05-28 00:00:00 Completed [facility] SARS-COV-2 COVID-19 MODERNA 12+ YRS VACCINE 2020-05-27 00:00:00 Completed [facility] SARS-COV-2 COVID-19 MODERNA 12+ YRS VACCINE 2020-05-27 00:00:00 Completed [facility] SARS-COV-2 COVID-19 MODERNA 12+ YRS VACCINE 2020-05-27 00:00:00 Completed [facility] SARS-COV-2 COVID-19 MODERNA 12+ YRS VACCINE 2020-05-27 00:00:00 Completed [facility] SARS-COV-2 COVID-19 MODERNA 12+ YRS VACCINE 2020-05-27 00:00:00 Completed [facility] SARS-COV-2 COVID-19 MODERNA 12+ YRS VACCINE 2020-05-27 00:00:00 Completed [facility] SARS-COV-2 COVID-19 MODERNA 12+ YRS VACCINE 2020-05-27 00:00:00 Completed [facility] SARS-COV-2 COVID-19 MODERNA VACCINE 2020-05-27 00:00:00 Completed [facility] SARS-COV-2 COVID-19 MODERNA VACCINE 2020-05-27 00:00:00 Completed [facility] SARS-COV-2 COVID-19 MODERNA VACCINE 2020-05-27 00:00:00 Completed [facility] SARS-COV-2 COVID-19 MODERNA VACCINE 2020-05-27 00:00:00 Completed [facility] SARS-COV-2 COVID-19 MODERNA 12+ YRS VACCINE 2020-05-27 00:00:00 Completed [facility] SARS-COV-2 COVID-19 MODERNA 12+ YRS VACCINE 2020-05-27 00:00:00 Completed [facility] SARS-COV-2 COVID-19 MODERNA 12+ YRS VACCINE 2020-05-27 00:00:00 Completed [facility] SARS-COV-2 COVID-19 MODERNA 12+ YRS VACCINE 2020-05-27 00:00:00 Completed [facility] SARS-COV-2 COVID-19 MODERNA 12+ YRS VACCINE 2020-05-27 00:00:00 Completed [facility] SARS-COV-2 COVID-19 MODERNA 12+ YRS VACCINE 2020-05-27 00:00:00 Completed [facility] SARS-COV-2 COVID-19 MODERNA 12+ YRS VACCINE 2020-05-27 00:00:00 Completed [facility] SARS-COV-2 COVID-19 MODERNA 12+ YRS VACCINE 2020-05-27 00:00:00 Completed [facility] SARS-COV-2 COVID-19 MODERNA 12+ YRS VACCINE 2020-05-27 00:00:00 Completed [facility] SARS-COV-2 COVID-19 MODERNA 12+ YRS VACCINE 2020-05-27 00:00:00 Completed [facility] SARS-COV-2 COVID-19 MODERNA 12+ YRS VACCINE 2020-05-27 00:00:00 Completed [facility] SARS-COV-2 COVID-19 MODERNA 12+ YRS VACCINE 2020-05-27 00:00:00 Completed [facility] SARS-COV-2 COVID-19 MODERNA 12+ YRS VACCINE 2020-05-27 00:00:00 Completed [facility] SARS-COV-2 COVID-19 MODERNA 12+ YRS VACCINE 2020-05-27 00:00:00 Completed [facility] SARS-COV-2 COVID-19 MODERNA 12+ YRS VACCINE 2020-05-27 00:00:00 Completed [facility] SARS-COV-2 COVID-19 MODERNA 12+ YRS VACCINE 2020-05-27 00:00:00 Completed [facility] SARS-COV-2 COVID-19 MODERNA 12+ YRS VACCINE 2020-05-27 00:00:00 Completed [facility] SARS-COV-2 COVID-19 MODERNA 12+ YRS VACCINE 2020-05-27 00:00:00 Completed [facility] SARS-COV-2 COVID-19 MODERNA 12+ YRS VACCINE 2020-05-27 00:00:00 Completed [facility] SARS-COV-2 COVID-19 MODERNA 12+ YRS VACCINE 2020-05-27 00:00:00 Completed [facility] SARS-COV-2 COVID-19 MODERNA 12+ YRS VACCINE 2020-05-27 00:00:00 Completed [facility] SARS-COV-2 COVID-19 MODERNA 12+ YRS VACCINE 2020-05-27 00:00:00 Completed [facility] SARS-COV-2 COVID-19 MODERNA 12+ YRS VACCINE 2020-05-27 00:00:00 Completed [facility] SARS-COV-2 COVID-19 MODERNA 12+ YRS VACCINE 2020-05-27 00:00:00 Completed [facility] SARS-COV-2 COVID-19 MODERNA 12+ YRS VACCINE 2020-05-27 00:00:00 Completed [facility] SARS-COV-2 COVID-19 MODERNA 12+ YRS VACCINE 2020-05-27 00:00:00 Completed [facility] SARS-COV-2 COVID-19 MODERNA 12+ YRS VACCINE 2020-05-27 00:00:00 Completed [facility] SARS-COV-2 COVID-19 MODERNA 12+ YRS VACCINE 2020-05-27 00:00:00 Completed [facility] Pneumococcal Polysaccharide, PPSV23 (PNEUMOVAX) 2020-05-13 00:00:00 Completed [facility] Pneumococcal Polysaccharide, PPSV23 (PNEUMOVAX) 2020-05-13 00:00:00 Completed [facility] Pneumococcal Polysaccharide, PPSV23 (PNEUMOVAX) 2020-05-13 00:00:00 Completed [facility] Pneumococcal Polysaccharide, PPSV23 (PNEUMOVAX) 2020-05-13 00:00:00 Completed [facility] Pneumococcal Polysaccharide, PPSV23 (PNEUMOVAX) 2020-05-13 00:00:00 Completed [facility] Pneumococcal Polysaccharide, PPSV23 (PNEUMOVAX) 2020-05-13 00:00:00 Completed [facility] Pneumococcal Polysaccharide, PPSV23 (PNEUMOVAX) 2020-05-13 00:00:00 Completed [facility] Pneumococcal Polysaccharide, PPSV23 (PNEUMOVAX) 2020-05-13 00:00:00 Completed [facility] Pneumococcal Polysaccharide, PPSV23 (PNEUMOVAX) 2020-05-13 00:00:00 Completed [facility] Pneumococcal Polysaccharide, PPSV23 (PNEUMOVAX) 2020-05-13 00:00:00 Completed [facility] Pneumococcal Polysaccharide, PPSV23 (PNEUMOVAX) 2020-05-13 00:00:00 Completed [facility] Pneumococcal Polysaccharide, PPSV23 (PNEUMOVAX) 2020-05-13 00:00:00 Completed [facility] Pneumococcal Polysaccharide, PPSV23 (PNEUMOVAX) 2020-05-13 00:00:00 Completed [facility] Pneumococcal Polysaccharide, PPSV23 (PNEUMOVAX) 2020-05-13 00:00:00 Completed [facility] Pneumococcal Polysaccharide, PPSV23 (PNEUMOVAX) 2020-05-13 00:00:00 Completed [facility] Pneumococcal Polysaccharide, PPSV23 (PNEUMOVAX) 2020-05-13 00:00:00 Completed [facility] Pneumococcal Polysaccharide, PPSV23 (PNEUMOVAX) 2020-05-13 00:00:00 Completed [facility] Pneumococcal Polysaccharide, PPSV23 (PNEUMOVAX) 2020-05-13 00:00:00 Completed [facility] Pneumococcal Polysaccharide, PPSV23 (PNEUMOVAX) 2020-05-13 00:00:00 Completed [facility] Pneumococcal Polysaccharide, PPSV23 (PNEUMOVAX) 2020-05-13 00:00:00 Completed [facility] Pneumococcal Polysaccharide, PPSV23 (PNEUMOVAX) 2020-05-13 00:00:00 Completed [facility] Pneumococcal Polysaccharide, PPSV23 (PNEUMOVAX) 2020-05-13 00:00:00 Completed [facility] Pneumococcal Polysaccharide, PPSV23 (PNEUMOVAX) 2020-05-13 00:00:00 Completed [facility] Pneumococcal Polysaccharide, PPSV23 (PNEUMOVAX) 2020-05-13 00:00:00 Completed [facility] Pneumococcal Polysaccharide, PPSV23 (PNEUMOVAX) 2020-05-13 00:00:00 Completed [facility] Pneumococcal Polysaccharide, PPSV23 (PNEUMOVAX) 2020-05-13 00:00:00 Completed [facility] Pneumococcal Polysaccharide, PPSV23 (PNEUMOVAX) 2020-05-13 00:00:00 Completed [facility] Pneumococcal Polysaccharide, PPSV23 (PNEUMOVAX) 2020-05-13 00:00:00 Completed [facility] Pneumococcal Polysaccharide, PPSV23 (PNEUMOVAX) 2020-05-13 00:00:00 Completed [facility] Pneumococcal Polysaccharide, PPSV23 (PNEUMOVAX) 2020-05-13 00:00:00 Completed [facility] Pneumococcal Polysaccharide, PPSV23 (PNEUMOVAX) 2020-05-13 00:00:00 Completed [facility] Pneumococcal Polysaccharide, PPSV23 (PNEUMOVAX) 2020-05-13 00:00:00 Completed [facility] Pneumococcal Polysaccharide, PPSV23 (PNEUMOVAX) 2020-05-13 00:00:00 Completed [facility] Pneumococcal Polysaccharide, PPSV23 (PNEUMOVAX) 2020-05-13 00:00:00 Completed [facility] Pneumococcal Polysaccharide, PPSV23 (PNEUMOVAX) 2020-05-13 00:00:00 Completed [facility] Pneumococcal Polysaccharide, PPSV23 (PNEUMOVAX) 2020-05-13 00:00:00 Completed [facility] Pneumococcal Polysaccharide, PPSV23 (PNEUMOVAX) 2020-05-13 00:00:00 Completed [facility] Pneumococcal Polysaccharide, PPSV23 (PNEUMOVAX) 2020-05-13 00:00:00 Completed [facility] Pneumococcal Polysaccharide, PPSV23 (PNEUMOVAX) 2020-05-13 00:00:00 Completed [facility] Influenza High Dose 2020-05-06 00:00:00 Completed [facility] Influenza High Dose 2020-05-06 00:00:00 Completed [facility] Influenza High Dose 2020-05-06 00:00:00 Completed [facility] Influenza High Dose 2020-05-06 00:00:00 Completed [facility] Influenza High Dose 2020-05-06 00:00:00 Completed [facility] Influenza High Dose 2020-05-06 00:00:00 Completed [facility] Influenza High Dose 2020-05-06 00:00:00 Completed [facility] Influenza High Dose 2020-05-06 00:00:00 Completed [facility] Influenza High Dose 2020-05-06 00:00:00 Completed [facility] Influenza High Dose 2020-05-06 00:00:00 Completed [facility] Influenza High Dose 2020-05-06 00:00:00 Completed [facility] Influenza High Dose 2020-05-06 00:00:00 Completed [facility] Influenza High Dose 2020-05-06 00:00:00 Completed [facility] Influenza High Dose 2020-05-06 00:00:00 Completed [facility] Influenza High Dose 2020-05-06 00:00:00 Completed [facility] Influenza High Dose 2020-05-06 00:00:00 Completed [facility] Influenza High Dose 2020-05-06 00:00:00 Completed [facility] Influenza High Dose 2020-05-06 00:00:00 Completed [facility] Influenza High Dose 2020-05-06 00:00:00 Completed [facility] Influenza High Dose 2020-05-06 00:00:00 Completed [facility] Influenza High Dose 2020-05-06 00:00:00 Completed [facility] Influenza High Dose 2020-05-06 00:00:00 Completed [facility] Influenza High Dose 2020-05-06 00:00:00 Completed [facility] Influenza High Dose 2020-05-06 00:00:00 Completed [facility] Influenza High Dose 2020-05-06 00:00:00 Completed [facility] Influenza High Dose 2020-05-06 00:00:00 Completed [facility] Influenza High Dose 2020-05-06 00:00:00 Completed [facility] Influenza High Dose 2020-05-06 00:00:00 Completed [facility] Influenza High Dose 2020-05-06 00:00:00 Completed [facility] Influenza High Dose 2020-05-06 00:00:00 Completed [facility] Influenza High Dose 2020-05-06 00:00:00 Completed [facility] Influenza High Dose 2020-05-06 00:00:00 Completed [facility] Influenza High Dose 2020-05-06 00:00:00 Completed [facility] Influenza High Dose 2020-05-06 00:00:00 Completed [facility] Influenza High Dose 2020-05-06 00:00:00 Completed [facility] Influenza High Dose 2020-05-06 00:00:00 Completed [facility] Influenza High Dose 2020-05-06 00:00:00 Completed [facility] Influenza High Dose 2020-05-06 00:00:00 Completed [facility] Influenza High Dose 2020-05-06 00:00:00 Completed [facility] SARS-COV-2 COVID-19 MODERNA 12+ YRS VACCINE Unknown Completed [facility] Pneumococcal Polysaccharide, PPSV23 (PNEUMOVAX) Unknown Completed [facility] Influenza High Dose Unknown Completed [facility] Influenza High Dose Unknown Completed [facility] SARS-COV-2 COVID-19 MODERNA 12+ YRS VACCINE Unknown Completed [facility] SARS-COV-2 COVID-19 MODERNA 12+ YRS VACCINE Unknown Completed [facility] SARS-COV-2 COVID-19 MODERNA 0.25ML BOOSTER VACCINE Unknown Completed [facility] SARS-COV-2 COVID-19 MODERNA 12+ YRS VACCINE Unknown Completed [facility] Pneumococcal Polysaccharide, PPSV23 (PNEUMOVAX) Unknown Completed [facility] Influenza High Dose Unknown Completed [facility] Influenza High Dose Unknown Completed [facility] SARS-COV-2 COVID-19 MODERNA 12+ YRS VACCINE Unknown Completed [facility] SARS-COV-2 COVID-19 MODERNA 12+ YRS VACCINE Unknown Completed [facility] SARS-COV-2 COVID-19 MODERNA 0.25ML BOOSTER VACCINE Unknown Completed [facility] SARS-COV-2 COVID-19 MODERNA 12+ YRS VACCINE Unknown Completed [facility] Pneumococcal Polysaccharide, PPSV23 (PNEUMOVAX) Unknown Completed [facility] Influenza High Dose Unknown Completed [facility] Influenza High Dose Unknown Completed [facility] SARS-COV-2 COVID-19 MODERNA 12+ YRS VACCINE Unknown Completed [facility] SARS-COV-2 COVID-19 MODERNA 12+ YRS VACCINE Unknown Completed [facility] SARS-COV-2 COVID-19 MODERNA 0.25ML BOOSTER VACCINE Unknown Completed [facility] SARS-COV-2 COVID-19 MODERNA 12+ YRS VACCINE Unknown Completed [facility] Pneumococcal Polysaccharide, PPSV23 (PNEUMOVAX) Unknown Completed [facility] Influenza High Dose Unknown Completed [facility] Influenza High Dose Unknown Completed [facility] SARS-COV-2 COVID-19 MODERNA 12+ YRS VACCINE Unknown Completed [facility] SARS-COV-2 COVID-19 MODERNA 12+ YRS VACCINE Unknown Completed [facility] SARS-COV-2 COVID-19 MODERNA 0.25ML BOOSTER VACCINE Unknown Completed [facility] SARS-COV-2 COVID-19 MODERNA 12+ YRS VACCINE Unknown Completed [facility] Pneumococcal Polysaccharide, PPSV23 (PNEUMOVAX) Unknown Completed [facility] Influenza High Dose Unknown Completed [facility] Influenza High Dose Unknown Completed [facility] SARS-COV-2 COVID-19 MODERNA 12+ YRS VACCINE Unknown Completed [facility] SARS-COV-2 COVID-19 MODERNA 12+ YRS VACCINE Unknown Completed [facility] SARS-COV-2 COVID-19 MODERNA 0.25ML BOOSTER VACCINE Unknown Completed [facility] SARS-COV-2 COVID-19 MODERNA 12+ YRS VACCINE Unknown Completed [facility] Pneumococcal Polysaccharide, PPSV23 (PNEUMOVAX) Unknown Completed [facility] Influenza High Dose Unknown Completed [facility] Influenza High Dose Unknown Completed [facility] SARS-COV-2 COVID-19 MODERNA 12+ YRS VACCINE Unknown Completed [facility] SARS-COV-2 COVID-19 MODERNA 12+ YRS VACCINE Unknown Completed [facility] SARS-COV-2 COVID-19 MODERNA 0.25ML BOOSTER VACCINE Unknown Completed [facility] SARS-COV-2 COVID-19 MODERNA 12+ YRS VACCINE Unknown Completed [facility] Pneumococcal Polysaccharide, PPSV23 (PNEUMOVAX) Unknown Completed [facility] Influenza High Dose Unknown Completed [facility] Influenza High Dose Unknown Completed [facility] SARS-COV-2 COVID-19 MODERNA 12+ YRS VACCINE Unknown Completed [facility] SARS-COV-2 COVID-19 MODERNA 12+ YRS VACCINE Unknown Completed [facility] SARS-COV-2 COVID-19 MODERNA 0.25ML BOOSTER VACCINE Unknown Completed [facility] SARS-COV-2 COVID-19 MODERNA 12+ YRS VACCINE Unknown Completed [facility] Pneumococcal Polysaccharide, PPSV23 (PNEUMOVAX) Unknown Completed [facility] Influenza High Dose Unknown Completed [facility] Influenza High Dose Unknown Completed [facility] SARS-COV-2 COVID-19 MODERNA 12+ YRS VACCINE Unknown Completed [facility] SARS-COV-2 COVID-19 MODERNA 12+ YRS VACCINE Unknown Completed [facility] SARS-COV-2 COVID-19 MODERNA 0.25ML BOOSTER VACCINE Unknown Completed [facility] SARS-COV-2 COVID-19 MODERNA 12+ YRS VACCINE Unknown Completed [facility] Pneumococcal Polysaccharide, PPSV23 (PNEUMOVAX) Unknown Completed [facility] Influenza High Dose Unknown Completed [facility] Influenza High Dose Unknown Completed [facility] SARS-COV-2 COVID-19 MODERNA 12+ YRS VACCINE Unknown Completed [facility] SARS-COV-2 COVID-19 MODERNA 12+ YRS VACCINE Unknown Completed [facility] SARS-COV-2 COVID-19 MODERNA 0.25ML BOOSTER VACCINE Unknown Completed [facility] SARS-COV-2 COVID-19 MODERNA 12+ YRS VACCINE Unknown Completed [facility] Pneumococcal Polysaccharide, PPSV23 (PNEUMOVAX) Unknown Completed [facility] Influenza High Dose Unknown Completed [facility] Influenza High Dose Unknown Completed [facility] SARS-COV-2 COVID-19 MODERNA 12+ YRS VACCINE Unknown Completed [facility] SARS-COV-2 COVID-19 MODERNA 12+ YRS VACCINE Unknown Completed [facility] SARS-COV-2 COVID-19 MODERNA 0.25ML BOOSTER VACCINE Unknown Completed [facility] SARS-COV-2 COVID-19 MODERNA 12+ YRS VACCINE Unknown Completed [facility] Pneumococcal Polysaccharide, PPSV23 (PNEUMOVAX) Unknown Completed [facility] Influenza High Dose Unknown Completed [facility] Influenza High Dose Unknown Completed [facility] SARS-COV-2 COVID-19 MODERNA 12+ YRS VACCINE Unknown Completed [facility] SARS-COV-2 COVID-19 MODERNA 12+ YRS VACCINE Unknown Completed [facility] SARS-COV-2 COVID-19 MODERNA 0.25ML BOOSTER VACCINE Unknown Completed [facility] SARS-COV-2 COVID-19 MODERNA 12+ YRS VACCINE Unknown Completed [facility] Pneumococcal Polysaccharide, PPSV23 (PNEUMOVAX) Unknown Completed [facility] Influenza High Dose Unknown Completed [facility] Influenza High Dose Unknown Completed [facility] SARS-COV-2 COVID-19 MODERNA 12+ YRS VACCINE Unknown Completed [facility] SARS-COV-2 COVID-19 MODERNA 12+ YRS VACCINE Unknown Completed [facility] SARS-COV-2 COVID-19 MODERNA 0.25ML BOOSTER VACCINE Unknown Completed [facility] Vital Signs Vital Name Observation Time Observation Value Comments S ource Systolic blood pressure 2023-01-24 18:26:00 149 mm[Hg] [facility] Diastolic blood pressure 2023-01-24 18:26:00 79 mm[Hg] [facility] Heart rate 2023-01-24 18:26:00 67 /min [facility] Body temperature 2023-01-24 18:24:00 36.44 Gita [facility] Respiratory rate 2023-01-24 18:24:00 18 /min [facility] Body weight 2023-01-24 18:24:00 68.04 kg [facility] BMI 2023-01-24 18:24:00 29.29 kg/m2 [facility] Oxygen saturation in Arterial blood by Pulse oximetry 2023-01-24 18:24:00 99 /min [facility] Body weight 2023-01-17 14:51:00 67.132 kg [facility] BMI 2023-01-17 14:51:00 28.90 kg/m2 [facility] Systolic blood pressure 2023-01-10 15:25:00 136 mm[Hg] [facility] Diastolic blood pressure 2023-01-10 15:25:00 57 mm[Hg] [facility] Heart rate 2023-01-10 15:25:00 58 /min [facility] Respiratory rate 2023-01-10 15:25:00 18 /min [facility] Oxygen saturation in Arterial blood by Pulse oximetry 2023-01-10 15:25:00 95 /min [facility] Body temperature 2023-01-10 14:45:00 35.83 Gita [facility] Body height 2023-01-04 19:00:00 152.4 cm [facility] Body weight 2023-01-04 19:00:00 67.132 kg [facility] BMI 2023-01-04 19:00:00 28.90 kg/m2 [facility] Systolic blood pressure 2023-01-10 15:25:00 136 mm[Hg] [facility] Diastolic blood pressure 2023-01-10 15:25:00 57 mm[Hg] [facility] Heart rate 2023-01-10 15:25:00 58 /min [facility] Respiratory rate 2023-01-10 15:25:00 18 /min [facility] Oxygen saturation in Arterial blood by Pulse oximetry 2023-01-10 15:25:00 95 /min [facility] Body temperature 2023-01-10 14:45:00 35.83 Gita [facility] Body height 2023-01-04 19:00:00 152.4 cm [facility] Body weight 2023-01-04 19:00:00 67.132 kg [facility] BMI 2023-01-04 19:00:00 28.90 kg/m2 [facility] Systolic blood pressure 2022-12-27 19:50:00 139 mm[Hg] [facility] Diastolic blood pressure 2022-12-27 19:50:00 69 mm[Hg] [facility] Heart rate 2022-12-27 19:50:00 68 /min [facility] Body temperature 2022-12-27 19:50:00 36.56 Gita [facility] Respiratory rate 2022-12-27 19:50:00 18 /min [facility] Body height 2022-12-27 19:50:00 152.4 cm [facility] Body weight 2022-12-27 19:50:00 69.037 kg [facility] BMI 2022-12-27 19:50:00 29.72 kg/m2 [facility] Oxygen saturation in Arterial blood by Pulse oximetry 2022-12-27 19:50:00 96 /min [facility] Systolic blood pressure 2022-10-18 18:19:00 117 mm[Hg] [facility] Diastolic blood pressure 2022-10-18 18:19:00 61 mm[Hg] [facility] Heart rate 2022-10-18 18:19:00 63 /min [facility] Body temperature 2022-10-18 18:19:00 36.22 Gita [facility] Body height 2022-10-18 18:19:00 152.4 cm [facility] Body weight 2022-10-18 18:19:00 69.763 kg [facility] BMI 2022-10-18 18:19:00 30.04 kg/m2 [facility] Oxygen saturation in Arterial blood by Pulse oximetry 2022-10-18 18:19:00 96 /min [facility] Systolic blood pressure 2022-07-26 19:06:00 141 mm[Hg] [facility] Diastolic blood pressure 2022-07-26 19:06:00 77 mm[Hg] [facility] Heart rate 2022-07-26 19:06:00 58 /min [facility] Body temperature 2022-07-26 19:06:00 36.28 Gita [facility] Respiratory rate 2022-07-26 19:06:00 18 /min [facility] Body height 2022-07-26 19:06:00 [facility] 2022-07-26 19:06:00 67.314 kg [facility] BMI 2022-07-26 19:06:00 28.98 [facility] in Arterial blood by Pulse oximetry 2022-07-26 19:06:00 96 /min [facility] Systolic blood pressure 2022-07-19 18:16:00 126 mm[Hg] [facility] Diastolic blood pressure 2022-07-19 18:16:00 67 mm[Hg] [facility] Heart rate 2022-07-19 18:16:00 66 /min [facility] Body weight 2022-07-19 18:16:00 67.949 kg [facility] BMI 2022-07-19 18:16:00 29.26 kg/m2 [facility] Oxygen saturation in Arterial blood by Pulse oximetry 2022-07-19 18:16:00 95 /min [facility] Systolic blood pressure 2022-07-12 16:15:00 125 mm[Hg] [facility] Diastolic blood pressure 2022-07-12 16:15:00 78 mm[Hg] [facility] Heart rate 2022-07-12 16:15:00 56 /min [facility] Body temperature 2022-07-12 16:15:00 36.11 Gita [facility] Oxygen saturation in Arterial blood by Pulse oximetry 2022-07-12 16:15:00 97 /min [facility] Respiratory rate 2022-07-12 15:33:00 13 /min [facility] Body height 2022-07-07 15:00:00 152.4 cm [facility] Body weight 2022-07-07 15:00:00 65.772 kg [facility] BMI 2022-07-07 15:00:00 28.32 kg/m2 [facility] Systolic blood pressure 2022-07-12 16:15:00 125 mm[Hg] [facility] Diastolic blood pressure 2022-07-12 16:15:00 78 mm[Hg] [facility] Heart rate 2022-07-12 16:15:00 56 /min [facility] Body temperature 2022-07-12 16:15:00 36.11 Gita [facility] Oxygen saturation in Arterial blood by Pulse oximetry 2022-07-12 16:15:00 97 /min [facility] Respiratory rate 2022-07-12 15:33:00 13 /min [facility] Body height 2022-07-07 15:00:00 152.4 cm [facility] Body weight 2022-07-07 15:00:00 65.772 kg [facility] BMI 2022-07-07 15:00:00 28.32 kg/m2 [facility] Systolic blood pressure 2022-06-14 18:30:00 126 mm[Hg] [facility] Diastolic blood pressure 2022-06-14 18:30:00 66 mm[Hg] [facility] Heart rate 2022-06-14 18:30:00 67 /min [facility] Respiratory rate 2022-06-14 18:30:00 18 /min [facility] Body height 2022-06-14 18:30:00 152.4 cm [facility] Body weight 2022-06-14 18:30:00 68.04 kg [facility] BMI 2022-06-14 18:30:00 29.29 kg/m2 [facility] Systolic blood pressure 2022-05-31 21:33:00 126 mm[Hg] [facility] Diastolic blood pressure 2022-05-31 21:33:00 65 mm[Hg] [facility] Heart rate 2022-05-31 21:32:00 72 /min [facility] Body temperature 2022-05-31 21:32:00 36.39 Gita [facility] Respiratory rate 2022-05-31 21:32:00 18 /min [facility] Body height 2022-05-31 21:32:00 162.6 cm [facility] Body weight 2022-05-31 21:32:00 68.04 kg [facility] BMI 2022-05-31 21:32:00 25.75 kg/m2 [facility] Oxygen saturation in Arterial blood by Pulse oximetry 2022-05-31 21:32:00 96 /min [facility] Systolic blood pressure 2022-02-05 18:53:00 134 mm[Hg] [facility] Diastolic blood pressure 2022-02-05 18:53:00 81 mm[Hg] [facility] Heart rate 2022-02-05 18:53:00 62 /min [facility] Body temperature 2022-02-05 18:53:00 36.39 Gita [facility] Respiratory rate 2022-02-05 18:53:00 18 /min [facility] Body height 2022-02-05 18:53:00 152.4 cm [facility] Body weight 2022-02-05 18:53:00 64.955 kg [facility] BMI 2022-02-05 18:53:00 27.97 kg/m2 [facility] Oxygen saturation in Arterial blood by Pulse oximetry 2022-02-05 18:53:00 95 /min [facility] Systolic blood pressure 2021-06-05 20:56:00 143 mm[Hg] [facility] Diastolic blood pressure 2021-06-05 20:56:00 78 mm[Hg] [facility] Heart rate 2021-06-05 20:56:00 70 /min [facility] Body temperature 2021-06-05 20:56:00 36.89 Gita [facility] Respiratory rate 2021-06-05 20:56:00 18 /min [facility] Body height 2021-06-05 20:56:00 152.4 cm [facility] Body weight 2021-06-05 20:56:00 64.501 kg [facility] BMI 2021-06-05 20:56:00 27.77 kg/m2 [facility] Oxygen saturation in Arterial blood by Pulse oximetry 2021-06-05 20:56:00 97 /min [facility] Procedures Procedure Date / Time Performed Performing Clinician Source XR, shoulder, 2 or more view 2023-05-24 00:00:00 [facility] TRIGGER FINGER RELEASE 2023-01-10 13:29:00 Serafin Gipson [facility] DAY SURGERY - ADC 2023-01-10 05:01:00 Doctor Loretta ssigned, [place] [facility] DISCLOSURE AND CONSENT, MEDICAL AND SURGICAL PROCEDURES 2022-12-27 05:01:00 Doctor Unassigned, [place] [facility] DISCLOSURE AND CONSENT, MEDICAL AND SURGICAL PROCEDURES 2022-12-27 05:01:00 Doctor Unassigned, [place] [facility] TRIGGER FINGER RELEASE 2022-07-12 14:33:00 Serafin Gipson [facility] DAY SURGERY - ADC 2022-07-12 05:01:00 Doctor Loretta ssigned, [place] [facility] EXTERNAL PROVIDER RECORDS 2022-06-25 05:01:00 Doctor Unassigned, [place] [facility] EXTERNAL PROVIDER RECORDS 2022-06-25 05:01:00 Doctor Unassigned, [place] [facility] MEDICAL RELEASE/CLEARANCE FORMS 2022-06-24 05:01:00 Doctor Unassigned, [place] [facility] MEDICAL RELEASE/CLEARANCE FORMS 2022-06-24 05:01:00 Doctor Unassigned, [place] [facility] PATIENT FINANCIAL POLICY 2022-06-14 18:01:01 Doctor Unassigned, [place] [facility] ASSIGNMENT OF BENEFITS 2022-02-05 18:19:56 Docto r Unassigned, [place] [facility] XR, shoulder, 2 or more view 2021-12-29 00:00:00 [facility] MRI, shoulder, w/o contrast 2021-12-29 00:00:00 [facility] ASSIGNMENT OF BENEFITS 2020-12-11 22:26:52 Docto r Unassigned, [place] [facility] [id number] [id number] Hip Replacement [facility] Hip Surgery [facility] Hysterectomy [facility] Neck Surgery [facility] Encounters Start Date/Time End Date/Time Encounter Type Admission Type Attending [facility] Care Facility Care Department Encounter ID Source 2021 14:35:00 Inpatient Augusto Pope [facility] [id number] [facility] 2019-11-28 14:30:00 Inpatient ADRIAN Muniz Sonny [facility] [id number] [facility] 2023-06-25 00:00:00 2023-06-25 00:00:00 Outpatient SHEA_Price Bill AO AO [id number] [facility] 2023-06-24 00:00:00 2023-06-24 00:00:00 Outpatient SHEA_Price Bill AO AO [id number] [facility] 2023-05-24 00:00:00 2023-05-24 00:00:00 Sonny Muniz MD: [address] [place] [phone] , Ph. [phone] [facility] [place] - [facility] - [facility] [id number] [facility] 2023-05-21 00:00:00 2023-05-21 00:00:00 Outpatient SHEA_Price Bill AO AO [id number] [facility] 2023-02-21 13:00:00 2023-02-21 13:00:00 Outpatient ROSENDO XIONG [facility] [id number] General acute hospital 2023-02-14 13:00:00 2023-02-14 13:00:00 Outpatient R [facility] [id number] General acute hospital 2023-01-24 13:30:00 2023-01-24 13:49:36 Outpatient ROSENDO XIONG [facility] [id number] General acute hospital 2023-01-24 13:30:00 2023-01-24 13:49:36 Office Visit Rosendo Gipson [facility] 1.2.840.114 350.1.13.10 4.2.7.2.686 [id number] General acute hospital 2023-01-17 09:00:00 2023-01-17 10:02:16 Outpatient ROSENDO XIONG [facility] [id number] General acute hospital 2023-01-17 09:00:00 2023-01-17 10:02:16 Nurse Visit Nurse, [facility] Surgery Rosendo Gipson [facility] 1.2.840.114 350.1.13.10 4.2.7.2.686 [id number] General acute hospital 2023-01-10 09:35:00 2023-01-10 10:49:00 Surgery Rosendo Gipson [facility] 1.2.840.114 350.1.13.10 4.2.7.2.686 [id number] General acute hospital 2023-01-10 07:51:00 2023-01-10 10:35:00 Outpatient ROSENDO XIONG [facility] [id number] General acute hospital 2023-01-10 07:51:00 2023-01-10 10:35:00 Hospital [facility] Rosendo Gipson [facility] 1.2.840.114 350.1.13.10 4.2.7.2.686 [id number] General acute hospital 2023-01-10 00:00:00 2023-01-10 00:00:00 [facility] 1.2.840.114 350.1.13.10 4.2.7.2.686 [id number] General acute hospital 2023-01-10 00:00:00 2023-01-10 00:00:00 Orders Only Doctor Unassigned, [place] [facility] 1.2.840.114 350.1.13.10 4.2.7.2.686 [id number] General acute hospital 2022-12-27 14:45:00 2022-12-27 15:26:14 Outpatient ROSENDO XIONG [facility] [id number] General acute hospital 2022-12-27 14:45:00 2022-12-27 15:26:14 Office Visit Rosendo Gipson [facility] 1.2.840.114 350.1.13.10 4.2.7.2.686 [id number] 201 [id number] General acute hospital 2022-11-16 00:00:00 2022-11-16 00:00:00 Telephone Rosendo Gipson [facility] 1.2.840.114 350.1.13.10 4.2.7.2.686 [id number] 201 [id number] General acute hospital 2022-10-18 13:00:00 2022-10-18 13:25:37 Outpatient R ROSENDO GIPSON [facility] [id number] General acute hospital 2022-10-18 13:00:00 2022-10-18 13:25:37 Office Visit Rosendo Gipson [facility] 1.2.840.114 350.1.13.10 4.2.7.2.686 [id number] 201 [id number] General acute hospital 2022-10-01 00:00:00 2022-10-01 00:00:00 Telephone Rosendo Gipson [facility] 1.2.840.114 350.1.13.10 4.2.7.2.686 [id number] 201 [id number] General acute hospital 2022-09-06 13:15:00 2022-09-06 13:15:00 Outpatient R ROSENDO GIPSON [facility] [id number] General acute hospital 2022-07-26 13:45:00 2022-07-26 14:26:49 Outpatient R ROSENDO GIPSON [facility] [id number] General acute hospital 2022-07-26 13:45:00 2022-07-26 14:26:49 Office Visit Rosendo Gipson [facility] 1.2.840.114 350.1.13.10 4.2.7.2.686 [id number] 201 [id number] General acute hospital 2022-07-19 13:00:00 2022-07-19 14:00:00 Nurse Visit Nurse, [facility] Surgery Rosendo Gipson [facility] 1.2.840.114 350.1.13.10 4.2.7.2.686 [id number] General acute hospital 2022-07-19 13:00:00 2022-07-19 13:00:00 Outpatient Maria Del Carmen SAWYERROSENDO LOCK [facility] [id number] General acute hospital 2022-07-19 11:00:00 2022-07-19 11:00:00 Outpatient Maria Del Carmen SAWYERASHVIN ROSENDO [facility] [id number] General acute hospital 2022-07-19 00:00:00 2022-07-19 00:00:00 Patient Secure Msg Rosendo Gipson Marychuy [facility] 1.2.840.114 350.1.13.10 4.2.7.2.686 [id number] General acute hospital 2022-07-12 09:20:00 2022-07-12 11:30:00 Outpatient ROSENDO XIONG [facility] [id number] General acute hospital 2022-07-12 09:20:00 2022-07-12 11:30:00 Hospital Encounter Rosendo Gipson [facility] 1.2.840.114 350.1.13.10 4.2.7.2.686 [id number] General acute hospital 2022-07-12 10:00:00 2022-07-12 11:19:00 Surgery Rosendo Gipson [facility] 1.2.840.114 350.1.13.10 4.2.7.2.686 [id number] 020 [id number] General acute hospital 2022-07-12 00:00:00 2022-07-12 00:00:00 Orders Only Doctor Unassigned, [place] [facility] 1.2.840.114 350.1.13.10 4.2.7.2.686 [id number] [id number] General acute hospital 2022-06-28 00:00:00 2022-06-28 00:00:00 Telephone Rosendo Gipson [facility] 1.2.840.114 350.1.13.10 4.2.7.2.686 [id number] 201 [id number] General acute hospital 2022-06-25 00:00:00 2022-06-25 00:00:00 Prep For Surgery [facility] 1.2.840.114 350.1.13.10 4.2.7.2.686 [id number] [id number] General acute hospital 2022-06-25 00:00:00 2022-06-25 00:00:00 Telephone Rosendo Gipson [facility] 1.2.840.114 350.1.13.10 4.2.7.2.686 [id number] 201 [id number] General acute hospital 2022-06-24 00:00:00 2022-06-24 00:00:00 Telephone ProashvinRosendo Marychuy [facility] 1.2.840.114 350.1.13.10 4.2.7.2.686 [id number] 201 [id number] General acute hospital 2022-06-14 13:30:00 2022-06-14 13:45:44 Outpatient R ROSENDO GIPSON [facility] [id number] General acute hospital 2022-06-14 13:30:00 2022-06-14 13:45:44 Office Visit Rosendo Gipson [facility] 1.2.840.114 350.1.13.10 4.2.7.2.686 [id number] 201 [id number] General acute hospital 2022-06-14 00:00:00 2022-06-14 00:00:00 Orders Only Doctor Unassigned, [place] [facility] 1.2.840.114 350.1.13.10 4.2.7.2.686 [id number] [id number] General acute hospital 2022-05-31 15:30:00 2022-05-31 16:19:43 Outpatient R ROSENDO GIPSON [facility] [id number] General acute hospital 2022-05-31 15:30:00 2022-05-31 16:19:43 Office Visit Rosendo Gipson [facility] 1..840.114 350.1.13.10 4.2.7.2.686 [id number] 201 [id number] General acute hospital 2022-05-26 00:00:00 2022-05-26 00:00:00 Telephone Oswald Almazan [facility] 1..840.114 350.1.13.10 4.2.7.2.686 [id number] 220 [id number] General acute hospital 2022-03-12 00:00:00 2022-03-12 00:00:00 Outpatient SHEA_Price Bill AOSM AOSM [id number] [facility] 2022 00:00:00 2022 00:00:00 Outpatient SHEA_Price Bill AOSM AOSM [id number] [facility] 2022-02-05 13:40:00 2022-02-05 14:58:11 Office Visit Sapna Obrien [facility] 1..840.114 350.1.13.10 4.2.7.2.686 [id number] General acute hospital 2022-02-05 13:40:00 2022-02-05 14:58:11 Outpatient Maria Del Carmen SAPNA OBRIEN [facility] [id number] General acute hospital 2022-02-05 00:00:00 2022-02-05 00:00:00 Orders Only Doctor Unassigned, [place] [facility] 1.2.840.114 350.1.13.10 4.2.7.2.686 [id number] [id number] General acute hospital 2022-01-29 09:00:00 2022-01-29 09:15:00 Cotton Converter Visit 2, Adc Lab ObrienSapna faith [facility] 1.2.840.114 350.1.13.10 4.2.7.2.686 [id number] General acute hospital 2022-01-29 09:00:00 2022-01-29 09:00:00 Outpatient SAPNA PEARSON [facility] [id number] General acute hospital 2022-01-29 09:00:00 2022-01-29 09:00:00 Outpatient SAPNA PERASON [facility] [id number] General acute hospital 2022-01-29 00:00:00 2022-01-29 00:00:00 Patient Secure Msg Sapna Obrien [facility] 1.2.840.114 350.1.13.10 4.2.7.2.686 [id number] General acute hospital 2022-01-22 10:00:00 2022-01-22 10:00:00 Outpatient VIKTORIA BLEDSOE [facility] [id number] General acute hospital 2021-12-31 10:56:00 2021-12-31 10:56:00 Outpatient [facility] [id number] [address] [place] [address] [facility] 2021-12-31 00:00:00 2021-12-31 00:00:00 Outpatient FOG_Price Bill AO AO [id number] [facility] 2021-12-31 00:00:00 2021-12-31 00:00:00 Sonny Muniz MD: [address] [place] [address] , Ph. [phone] [place] - [facility] [id number] [facility] 2021-12-29 00:00:00 2021-12-29 00:00:00 Outpatient [facility] [id number] [facility] 2021-12-29 00:00:00 2021-12-29 00:00:00 Sonny Muniz MD: [address] [place], [place] [phone] , Ph. [phone] [place] - [facility] [id number] [facility] 2021-11-18 00:00:00 2021-11-18 00:00:00 Outpatient FOG[facility]Price [facility] [id number] [facility] 2021-09-14 00:00:00 2021-09-14 00:00:00 Patient Secure Sapna Miller [place] [address].2.840.114 350.1.13.10 4.2.7.2.686 [id number] 044 [id number] General acute hospital 2021-09-09 00:00:00 2021-09-09 00:00:00 RefSapna Bob [address]840.114 350.1.13.10 4.2.7.2.686 [id number] 044 [id number] General acute hospital 2021-07-17 11:00:00 2021-07-17 11:00:00 Outpatient CAMILA MARIE [facility] [id number] General acute hospital 2021-06-05 14:40:00 2021-06-05 15:39:46 Outpatient R SAPNA OBRIEN [facility] [id number] General acute hospital 2021-06-05 14:40:00 2021-06-05 15:39:46 Office Visit Sapna Obrien Cand[facility] 1.2.840.114 350.1.13.10 4.2.7.2.686 [id number] General acute hospital 2021-06-05 14:40:00 2021-06-05 15:39:46 Outpatient R SAPNA OBRIEN [facility] [id number] General acute hospital 2021-06-04 11:45:00 2021-06-04 11:45:00 Outpatient R [facility] [id number] General acute hospital 2021-06-04 11:45:00 2021-06-04 11:45:00 Outpatient R SAPNA OBRIEN [facility] [id number] General acute hospital 2021-05-01 08:00:00 2021-05-01 08:00:00 Outpatient R OSWALD ALMAZAN [facility] [id number] General acute hospital 2021-04-15 00:00:00 2021-04-15 00:00:00 Telephone Oswald Almazan [facility] 1..840.114 350.1.13.10 4.2.7.2.686 [id number] General acute hospital 2021-04-14 10:45:00 2021-04-14 11:28:54 Outpatient R SAPNA OBRIEN [facility] [id number] General acute hospital 2021-04-14 10:45:00 2021-04-14 11:28:54 Cotton Converter Visit 2, Adc Lab Sapna Obrien [facility] 1.2.840.114 350.1.13.10 4.2.7.2.686 [id number] General acute hospital 2021-04-01 00:00:00 2021-04-01 00:00:00 Telephone [facility]apna Ob[facility] 1.2.840.114 350.1.13.10 4.2.7.2.686 [id number] General acute hospital 2021-02-06 13:00:00 2021-02-06 13:00:18 Outpatient ONEL WALL [facility] [id number] General acute hospital 2021-02-06 12:59:50 2021-02-06 13:00:18 Imm/Inj Visit Nurse, Liza Pob Immunizatio Onel Aviles [facility] 1.2.840.114 350.1.13.10 4.2.7.2.686 [id number] General acute hospital 2021-02-06 13:00:00 2021-02-06 13:00:00 Outpatient ONEL WALL [facility] [id number] General acute hospital 2021-02-06 09:52:43 2021-02-06 11:41:22 Office Visit Sapna Obrien [facility] 1.2.840.114 350.1.13.10 4.2.7.2.686 [id number] General acute hospital 2021-02-06 09:40:00 2021-02-06 09:40:00 Outpatient R SAPNA OBRIEN [facility] [id number] General acute hospital 2021-02-03 00:00:00 2021-02-03 00:00:00 Telephone Sapna Obrien [facility] 1.2.840.114 350.1.13.10 4.2.7.2.686 [id number] General acute hospital 2021-02-02 15:00:00 2021-02-02 12:25:49 Outpatient R SHAYLEE MENON [facility] [id number] General acute hospital 2021-02-02 11:33:56 2021-02-02 12:25:49 Nurse Visit Nurse, [facility] Fam Shaylee Menon [facility] 1.0.114 350.1.13.10 4.2.7.2.686 [id number] 044 [id number] General acute hospital 2021-02-02 10:26:52 2021-02-02 10:41:52 Laboratory Only Only, [facility] Test Shaylee Menon [facility] 1..114 350.1.13.10 4.2.7.2.686 [id number] General acute hospital 2021-01-27 00:00:00 2021-01-27 00:00:00 Orders Only Doctor Unassigned, [place] [facility] 1..114 350.1.13.10 4.2.7.2.686 [id number] [id number] General acute hospital 2021-01-26 08:21:52 2021-01-26 08:51:52 Office Visit Oswald Almazan [facility] 1.114 350.1.13.10 4.2.7.2.686 [id number] General acute hospital 2021-01-26 08:30:00 2021-01-26 08:30:00 Outpatient R OSWALD ALMAZAN [facility] [id number] General acute hospital 2021-01-23 00:00:00 2021-01-23 00:00:00 Patient Secure Msmitzi AnnemarieCamila [facility] 1.114 350.1.13.10 4.2.7.2.686 [id number] General acute hospital 2021-01-23 00:00:00 2021-01-23 00:00:00 Patient Secure Msg Camila Oden [facility] 1.2.840.114 350.1.13.10 4.2.7.2.686 [id number] 044 [id number] General acute hospital 2021-01-22 00:00:00 2021-01-22 00:00:00 Telephone [facility] 1.2.840.114 350.1.13.10 4.2.7.2.686 [id number] 044 [id number] General acute hospital 2021-01-22 00:00:00 2021-01-22 00:00:00 Telephone Camila Oden [facility] 1.2.840.114 350.1.13.10 4.2.7.2.686 [id number] [id number] General acute hospital 2021-01-21 14:00:00 2021-01-21 23:59:00 Hospital Encounter Camila Oden [facility] 1.2.840.114 350.1.13.10 4.2.7.2.686 [id number] General acute hospital 2021-01-21 00:00:00 2021-01-21 00:00:00 Outpatient R ANNEMARIE CAMILA [facility] [id number] General acute hospital 2021-01-21 00:00:00 2021-01-21 00:00:00 Orders Only Doctor Unassigned, [place] [facility] 1.2.840.114 350.1.13.10 4.2.7.2.686 [id number] [id number] General acute hospital 2021-01-15 14:46:07 2021-01-15 15:01:07 Cotton Converter Visit 2, Adc Lab Annemarie [facility] 1.2.840.114 350.1.13.10 4.2.7.2.686 [id number] General acute hospital 2021-01-15 11:00:57 2021-01-15 12:14:08 Office Visit Юлияanne marieCamila [facility] 1.2.840.114 350.1.13.10 4.2.7.2.686 [id number] 044 [id number] General acute hospital 2021-01-15 11:00:00 2021-01-15 11:00:00 Outpatient R ANNEMARIE [facility] [id number] General acute hospital 2020-12-13 00:00:00 2020-12-13 00:00:00 Telephone Silke Alvarado [facility] 1.840.114 350.1.13.10 4.2.7.2.686 [id number] General acute hospital 2020-12-11 17:28:27 2020-12-11 17:43:27 Laboratory Only Only, Ang Db Test Unknown, Attending Marietta Mattson [facility] 1.2.840.114 350.1.13.10 4.2.7.2.686 [id number] General acute hospital 2020-12-11 17:25:00 2020-12-11 17:25:00 Outpatient R MARIETTA MATTSON [facility] [id number] General acute hospital 2020-12-11 00:00:00 2020-12-11 00:00:00 Orders Only Doctor Unassigned, [place] [facility] 1.2840.114 350.1.13.10 4.2.7.2.686 [id number] [id number] General acute hospital 2020-12-04 15:40:00 2020-12-04 15:40:00 Outpatient R CAMILA ODEN [facility] [id number] General acute hospital 2020-10-15 00:00:00 2020-10-15 00:00:00 Telephone Camila Oden [facility] 1.2.840.114 350.1.13.10 4.2.7.2.686 [id number] 044 [id number] General acute hospital 2020-06-10 13:00:00 2020-06-10 23:59:00 Hospital Encounter Camila Oden [facility] 1.2.840.114 350.1.13.10 4.2.7.2.686 [id number] General acute hospital 2020-06-10 00:00:00 2020-06-10 00:00:00 Outpatient R ANNEMARIE [facility] [id number] General acute hospital 2020-06-10 00:00:00 2020-06-10 00:00:00 Orders Only Doctor Unassigned, [place] [facility] 1.2.840.114 350.1.13.10 4.2.7.2.686 [id number] General acute hospital 2020-06-03 15:07:46 2020-06-03 15:47:00 Office Visit Camila Oden [facility] 1.2.840.114 350.1.13.10 4.2.7.2.686 [id number] 044 [id number] General acute hospital 2020-06-03 15:09:33 2020-06-03 15:24:33 Cotton Converter Visit 2, Adc Lab Camila Oden [facility] 1.2.840.114 350.1.13.10 4.2.7.2.686 [id number] General acute hospital 2020-06-03 13:50:36 2020-06-03 15:17:27 Office Visit Camila Oden [facility] 1..840.114 350.1.13.10 4.2.7.2.686 [id number] General acute hospital 2020-06-03 14:00:00 2020-06-03 14:00:00 Outpatient Maria Del Carmen ODEN CAMILA [facility] [id number] General acute hospital 2020-06-03 00:00:00 2020-06-03 00:00:00 Orders Only Doctor Unassigned, [place] [facility] 1..840.114 350.1.13.10 4.2.7.2.686 [id number] General acute hospital 2019-12-05 18:10:00 2019-12-05 18:10:00 Outpatient Son[facility] Mun[facility] [id number] 75 [facility] 2019-06-26 14:35:00 2019-06-26 14:35:00 Outpatient Sonny Cummings [facility] [id number] [facility] Results Test Description Test Time Test Comments Results Resul t Comments Source - MRI UP JNT W/O CONT RT 2021-12-31 12:25:00 [facility] : 1955 Sex: F Patient Name: PIERCE CLARKE Unit No: [id number] EXAMS: CPT CODE: [id number] [place] UP JNT W/[place] [address] MR of the right shoulder without contrast [...] MD Technologist: MIN HAHN. Transcribed D/ (1225) [facility]: PIERCE CLARKE [address] [facility] PHYS: Sonny Betts : 1955 AGE: 66 SEX: F [place], [place] [address] LOC: Y.MRI PHONE #: [phone] EXAM DATE: 12/31/2021 STATUS: REG CLI FAX #: [phone] RAD #: [id number] D/C DT PAGE 1 Signed Report Patient Name: PIERCE CLARKE Unit No: [id number] EXAMS: CPT CODE: [id number] MRI UP JNT W/[place] [address] (Continued) Orig Print D/T: S: 12/31/2021 (1228) [facility] NAME: PIERCE CLARKE [address] [place] [address] PHYS: MICHAEL Talbert Sonny Muniz : 1955 AGE: 66 SEX: F [place], [place] [address] LOC: Y.MRI PHONE #: [phone] EXAM DATE: 12/31/2021 STATUS: REG CLI FAX #: [phone] RAD #: [id number] D/C DT PAGE 2 Signed Report - XR SHOULDER 1 V LT 2019-12-13 08:24:00 Patient Name: PIERCE CLARKE Unit No: [id number] EXAMS: CPT CODE: [id number] XR SHOULD[place] [address] AP portable left shoulder COMMENT: The patient is status post reverse prosthesis placement which is articulating normally. at 0824 Reported and signed by: Jeff Banks MD CC: Sonny Muniz MD Technologist: YONAS GREENBERG, RT(R) Transcribed D/ (0824) Oma[facility] NAME: PIERCE CLARKE [address] [place] [address] PHYS: MICHAEL Talbert Sonny Muniz : 1955 AGE: 64 SEX: F [place] [address] LOC: Y.515 A PHONE #: [phone] EXAM DATE: 12/12/2019 STATUS: ADM IN FAX #: [phone] RAD #: [id number] D/C DT PAGE 1 Signed Report Patient Name: PIERCE CLARKE Unit No: [id number] EXAMS: CPT CODE: [id number] XR SHOULDER 1 [place] [address] (Continued) Orig Print D/T: S: 12/13/2019 (0827) [facility] NAME: PIERCE CLARKE [address] [place] [address] PHYS: MICHAEL MunizSonny Thurston : 1955 AGE: 64 SEX: F [place], [place] [address] LOC: Noy Harvey PHONE #: [phone] EXAM DATE: 12/12/2019 STATUS: ADM IN FAX #: [phone] RAD #: [id number] D/C DT PAGE 2 Signed Report CBC W/AUTO [id number] 05:54:00* Test Item Value Reference Range Interpretation [...] N SPECIMEN COMMENT: POD #1Novel Coronavirus 2018 [id number] 18:33:00* Test Item Value Reference Range Interpretation Comme nts Novel Coronavirus 2018 Inhou se (test code = COVNONPUI) Negative Negative Novel Coronavirus 2018 [id number] 18:33:00* Test Item Value Reference Range Interpretation Comme nts Novel Coronavirus 2018 Inhou se (test code = COVNONPUI) Negative Negative COMPREHENSIVE METABOLIC [id number] 18:17:00* Test Item Value Reference Range Interpretation [...] 44.7 >60 Unit of m easure: mL/min/1.73 h1Vgqlhiclv Range:Healthy Adults >90 mL/min/1.73 m2 For Chronic [...] = ALKP) 81 U/L 46-116 N PROTHROMBIN [id number] 18:11:00* Test Item Value Reference Range Interpretation [...] Patient is on Heparin Drip? NOTHROMBOPLASTIN TIME [id number] 18:11:00* Test Item Value Reference Range Interpretation [...] N - CT UP EXTREM W/O CONT [id number] 06:31:00Patient Name: PIERCE CLARKE Unit No: [id number] EXAMS: CPT CODE: [id number] CT [place] EXTREM W/[place] [address] TECHNIQUE: Volumetric CT data of the left shoulder was obtained without use of intravenous contrast. Images were then viewed in the axial, coronal and sagittal planes. CT radiation dose optimization is achieved for this examination by the use of a CT protocol in accordance with ACR practice standards and adherence to micro computer data processor's recommendations. INDICATION: LEFT SHOULDER ROTATOR CUFF ARTHROPATHY [...] Little,RT(R) CTDI: DLP: Trnscrpt: 06/27/2019 (0631) [facility] NAME: PIERCE CLARKE [address] [place] [address] PHYS: Sonny Betts : 1955 AGE: 64 SEX: F [place] [address] LOC: JemalRAD PHONE #: [phone] EXAM DATE: 06/26/2019 STATUS: DEP CLI FAX #: [phone] RAD #: [id number] D/C DT PAGE 1 Signed Report Patient Name: PIERCE CLARKE Unit No: [id number] EXAMS: CPT CODE: [id number] CT [place] EXTREM W/[place] [address] (Continued) Orig Print D/T: S: 06/27/2019 (0634) [facility] NAME: PIERCE CLARKE [address] [place] [address] PHYS: Sonny Betts : 1955 AGE: 64 SEX:F [place] [address] LOC: YCarlaRAD PHONE #: [phone] EXAM DATE: 06/26/2019 STATUS: DEP CLI FAX #: [phone] RAD #: [id number] D/C DT PAGE 2 Signed Report Notes [...] questions. Patient verbalized understanding. Kaylie Allred RN [facility] 2022-11-16 16:20:43 Formatting of this n ote might be different from the original. Patient previously discussed February surgery date with Dr. Gipson for trigger finger release. She would like to know if that date is still available? Please advise. Romana Townsend [facility] 2019-12-13 15:02:00 [facility] ([facility]) Discharge Summary REPORT#:[id number] REPORT STATUS: Signed DATE:12/13/19 TIME: 1502 PATIENT: PIERCE CLARKE UNIT #: [id number] [facility] AGE: 64 SEX: F ATTEND: [...] CALL OFFICE FOR APPOINTMENT at 1503 RPT #:[id number] END OF REPORT [facility] 2019-12-13 08:04:00 [facility] ([facility]) Pain Management Progress Note REPORT#:[id number] REPORT STATUS: Signed DATE:12/13/19 TIME: 08 PATIENT: PIERCE CLARKE UNIT #: [id number] ROOM/BED: [address] : 54 AGE: 64 SEX: F ATTEND: Sonny Muniz MD ADM AUTHOR: Dariela Masterson MANAGER HOUSE * ALL edits or amendments must be [...] FiO2 32 12/13 535 O2 Flow Rate 3.171437 12/13 535 History: PMH: A-FIB, HTN, ANXIETY [...] TRANSFERRED TO DR. AGUERO at 0807 RPT #:[id number] END OF REPORT [facility] 2019-12-13 08:04:00 [facility] ([facility]) Pain Management Progress Note REPORT#:[id number] REPORT STATUS: Signed DATE:12/13/19 TIME: 08 PATIENT: PIERCE CLARKE UNIT #: [id number] ROOM/BED: [address] : 54 AGE: 64 SEX: F [...] FiO2 32 12/12 0536 O2 Flow Rate 3.618604 12/12 0536 History: PMH: A-FIB, HTN, ANXIETY [...] DR. AGUERO at 0807 at 0641 RPT #:[id number] END OF REPORT [facility] 2019-12-13 07:34:00 [facility] ([facility]) Orthopaedic Progress Note REPORT#:[id number] REPORT STATUS: Signed DATE:12/13/19 TIME: 733 PATIENT: PIERCE CLARKE UNIT #: [id number] ROOM/BED: [address] : 54 AGE: 64 SEX: F [...] Ox Delivery Rate 12/12 0536 96 Nasal 3.612505 32 cannula 12/12 0405 35.9 72 16 105/60 74.8 97 Room air 12/12 0202 95 Nasal 3.448492 32 cannula 12/11 2354 92 Nasal 3.275784 32 cannula 12/11 2251 36.7 87 18 117/67 83.5 95 Nasal 3.709617 cannula 12/11 2054 Nasal 3.679456 cannula 12/11 1907 73 149/84 105.4 94 12/11 1904 36.1 75 16 93 Nasal 3.675089 cannula 12/11 1854 Nasal 3.111042 cannula 12/11 1832 36.4 65 16 118/56 98 Nasal 3.135278 cannula 12/11 1820 63 16 131/62 98 Nasal 3.520541 cannula 12/11 1813 Simple 6.284870 mask 12/11 1805 66 15 135/61 96 Nasal 3.777000 cannula 12/11 1750 66 15 143/63 97 Nasal 3.700211 cannula 12/11 1735 66 15 117/55 98 Simple 6.083454 mask 12/11 1720 36.3 70 19 121/65 99 Simple 6.348834 mask 12/11 1429 63 17 131/58 100 Simple 6.681526 mask 12/11 1414 62 15 133/61 100 Simple 6.784538 mask 12/11 1232 36.4 73 16 191/87 97 Room air Assessment/ Plan: L shoulder reverse arthroplasty - Post op day #1 May discharge home when ready from orthopedic standpoint - Follow up in office with physician in 1 week(s). Prescription for pain called into pharmcy. at 0735 RPT #:[id number] END OF REPORT [facility] 2019-12-13 07:33:00 [id number] [facility] [address] [place] [place] [address] PATIENT NAME: PIERCE CLARKE ADMIT DATE: 12/12/19 ACCOUNT NO: [id number] ROOM NO: Y.515 AGE: 64 REPORT TYPE: OPERATIVE REPORT SEX: F ADMITTING PHYSICIAN:Sonny Muniz MD ATTENDING PHYSICIAN:Sonny Muniz MD OPERATION DATE: 12/12/2019 PREOPERATIVE DIAGNOSIS: Left [...] and returning the patient back to the [facility]. His assistance allowed me to perform the most sensitive and technical potions of this operation using 2 hands, thus enhancing efficiency and patient safety. This would not be possible without the help of a skilled front office assistant familiar with the procedure and capable of [...] By: Sonny Muniz MD WT: OP:HELEN/EDWTH/NTS Conf#: [id number]/DID#: [id number] Authenticated by Sonny Muniz MD On 12/14/2019 06:40:10 AM at 0640 PATIENT NAME: PIERCE CLARKE [facility] 2019-12-13 07:22:00 [facility] ([facility]) Internal Medicine Prog. Note REPORT#:[id number] REPORT STATUS: Signed DATE:12/13/19 TIME: 721 PATIENT: PIERCE CLARKE UNIT #: [id number] ROOM/BED: [address] : 54 AGE: 64 SEX: F [...] Nasal cannula 12/13 535 O2 Flow Rate 3.100902 12/13 535 B/P 105/60 12/12 404 B/P [...] (Auto) (20 - 40 %) 8.8 L Burnett % (Auto) (3 - 10 %) 2.7 L Eos % (Auto) (1 - 5 %) 0.0 L Baso % (Auto) (0.0 - 1.1 %) 0.1 Neut # (Auto) (2.00 - 7.50 K/mm3) 6.88 Lymph # (Auto) (1.50 - 4.00 K/mm3) 0.69 L Burnett # (Auto) (0.2 - 0.8 K/mm3) 0.21 [...] treatment. Continue to mobilize. at 0839 RPT #:[id number] END OF REPORT [facility] 2019-12-12 21:02:00 [facility] ([facility]) Clinical Note REPORT#:[id number] REPORT STATUS: Signed DATE:12/12/19 TIME: 2101 PATIENT: PIERCE CLARKE UNIT #: [id number] ROOM/BED: [address] : 54 AGE: 64 SEX: F ATTEND: Sonny Muniz MD ADM AUTHOR: Caden Aguero MD * ALL edits or amendments must be made on the electronic/computer document * Clinical Note Note: Consult Note Dictated [id number] at 2107 [facility] #:[id number] END OF REPORT [facility] 2019-12-12 20:31:00 [id number] [facility] [address] [place] [address] PATIENT NAME: PIERCE CLARKE ADMIT DATE: 12/12/19 ACCOUNT NO: [id number] ROOM NO: Y.515 AGE: 64 REPORT TYPE: [...] management. The patient was admitted to the [facility] earlier today, December 11. The patient states [...] 1-level house. 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 The patient was diagnosed as having left shoulder disruption repair, status post revision repair, irreparable status. The patient did undergo a left shoulder arthroplasty with reverse prosthesis. Postoperatively, the patient has been placed on a SHELLACKER pump with hydromorphone, Dilaudid, dose 0.1 mg, delay 8 minutes, 1-hour limit 0.8 mg. The patient also placed on Robaxin 500 mg q. 6 hours. The patient does have [place] 5 mg and [place] 10 mg q. 4 hours p.r.n. for [...] By: Caden Aguero MD WT: CON:YJUSTA/LEE/CATRACHITA Conf#: [id number]/DID#: [id number] Authenticated by Caden Aguero MD On 01/07/2020 01:42:41 PM at 1342 PATIENT NAME: PIERCE CLARKE [facility] 2019-12-12 17:54:00 [id number] [address] PATIENT NAME: PIERCE CLARKE ADMIT DATE: 12/12/19 ACCOUNT NO: [id number] ROOM NO: Y.515 AGE: 64 REPORT TYPE: [...] By: Herve Gabriel MD WT: CON:Y.ANGELITO/SUMEET/CATRACHITA Conf#: [id number]/DID#: [id number] PATIENT NAME: PIERCE CLARKE Authenticated by Herve Gabriel MD On 12/14/2019 07:45:38 AM at 0746 PATIENT NAME: PIERCE CLARKE [facility] 2019-12-12 17:43:00 [facility] Internal Medicine Prog. Note REPORT#:[id number] REPORT STATUS: Signed DATE:12/12/19 TIME: 1743 PATIENT: PIERCE CLARKE UNIT #: [id number] ROOM/BED: [place] [address] : 54 AGE: 64 SEX: F ATTEND: [...] Simple mask 12/11 1429 O2 Flow Rate 6.700506 12/11 1429 Pulse 63 12/11 1429 Resp 17 12/11 1429 Temp 97.5 12/11 1232 B/P Mean 101 11/11 1633 Patient Weight Weight (lb): 176 Weight (oz): 12.97 Weight (kg): 80.200 Diagnosis, Assessment Plan Problem List/A P: 1. HTN (hypertension) 2. CHF (congestive heart failure) 3. Afib 4. Renal insufficiency at 1837 RPT #:[id number] END OF REPORT [facility] 2019-12-12 16:45:00 [facility]) Brief Op Note REPORT#:[id number] REPORT STATUS: Signed DATE:12/12/19 TIME: 1645 PATIENT: PIERCE CLARKE UNIT #: [id number] ROOM/BED: [place] [address] : 54 AGE: 64 SEX: F ATTEND: Sonny Muniz MD ADM AUTHOR: JAMES HERNANDEZ MD * ALL edits or amendments must be made on the electronic/computer document * Op/Inv Proc Note - Brief Pre-procedure diagnosis: Left shoulder rotator cuff arthropathy Post-procedure diagnosis: same as pre procedure dx Procedures performed: reverse total shoulder arthroplasty Primary Surgeon: Price Business Analyst Sales Operations(s): Mary Sanches Findings: See Dictation Complications: none Estimated blood loss in ml's: 150ccs Specimens removed/altered: none Drain(s): Hemovac Drain at 1646 [facility] #:[id number] END OF REPORT [facility]
[2023-12-31] MEDS ORDERED: ALBUTEROL 2.5 MG/3 ML NEB SOL ONE (22:28)
[2023-12-31] MEDS ORDERED: ACETAMINOPHEN 500 MG TAB ONE (22:28)
[2023-12-31] MEDS ORDERED: CEFTRIAXONE 1000 MG/VIAL ONE (22:28)
[2023-12-31] MEDS ORDERED: AZITHROMYCIN 500 MG INJ IVPB ONE (22:29)
[2023-12-31] MEDS ORDERED: NA CHLORIDE 0.9% 250 ML ONE (22:29)
[2023-12-31] MEDS ORDERED: IBUPROFEN 400 MG TAB ONE (22:29)
[2023-12-31] MEDS ORDERED: NA CHLORIDE 0.9% 50 ML ONE (22:29)
[2023-12-31 23:08] LABS: Absolute Lymphocytes (CBC) 0.3 K/uL (0.7-4.9); Absolute Monocytes 0.9 K/uL (0.1-1.3); Absolute Neutrophil 15.6 K/uL (1.8-8.0); Basophils % 0.1 % (0-1.3); Hematocrit 36.7 % (36.0-45.0); Hemoglobin 12.2 g/dL (12.0-15.0); Lymphocytes % 1.8 % (15.3-44.8); MCH 30.1 pg (27.0-35.0); MCHC 33.3 g/dL (32.0-36.0); MCV 90.4 fL (80-100); MPV 8.3 fL (7.6-11.3); Monocytes % 5.1 % (3.3-12.3); Nucleated Red Blood Cells % 0.1 % (0-0); Platelets 269 thou/uL (152-406); RBC Red Blood Cell Count 4.06 M/uL (3.86-4.86); Red Cell Distribution Width 14.7 % (12.1-15.2)
[2023-12-31 23:15] LABS: PT Prothrombin Time 18.7 SECONDS (9.4-12.5); Protime INR 1.7
[2023-12-31 23:26] LABS: SARS-CoV-2 Antigen CONTROL BLUE LINE VIS/BG OK; SARS-CoV-2 Antigen Rapid Res Negative (Negative)
[2023-12-31 23:26] LABS: Albumin 2.5 g/dL (3.4-5.0); Albumin/Globulin Ratio 0.6 (1.1-1.8); Anion Gap 9.8 mEq/L (5.0-15.0); Bilirubin Direct 0.3 mg/dL (0-0.2); Bilirubin Indirect, Calculated 0.3 mg/dL (0.2-0.8); Bilirubin Total 0.6 mg/dL (0.2-1.0); Globulin 4.5 g/dL (2.3-3.5); Potassium 3.8 mEq/L (3.5-5.1)
[2024-01-01 01:57] LABS: Blood Morphology Comment NOT SEEN (NOT SEEN); Platelet Estimate ADEQ; White Blood Cell Scan OK (OK)
--- NOTE | 2024-01-01 03:55 | EDPHYS ---
Physician Documentation [facility] Name: Briana Downing Age: 68 yrs Sex: Female : 1955 Arrival Date: 12/31/2023 Time: 22:05 Bed 3 Private MD: ED Physician Ziggy Vizcaino HPI: 12/30 22:17 This 68 yrs old Female presents to ER via Unassigned with complaints of sp4 dyspnea, fever. 12/31 03:46 Patient is a very pleasant 68-year-old female who arrives with complaint of fever , sp4 dyspnea and feeling unwell also cough and sputum. . Historical: - Allergies: 12/30 22:26 No Known Allergies; vc1 - PMHx: 22:26 Anxiety; Depression; Hyperlipidemia; Hypertension; Hypothyroidism; Congestive heart vc1 failure; - PSHx: 22:26 None; vc1 - Immunization history:: Client reports receiving the 2nd dose of the Covid vaccine. - Infectious Disease History:: Denies. - Social history:: Smoking status: Patient denies any tobacco usage or history of. - Family history:: not pertinent. ROS: 12/31 03:47 Constitutional: Positive fever, positive shortness of breath, positive cough productive sp4 of sputum All other systems are negative, Exam: 03:47 Constitutional: This is a well developed, well nourished patient who is awake, alert, sp4 patient is febrile and dyspneic Head/Face: Normocephalic, atraumatic. Eyes: Pupils equal round and reactive to light, extra-ocular motions intact. Lids and lashes normal. Conjunctiva and sclera are not injected. Cornea within normal limits. Periorbital areas with no swelling, redness, or edema. ENT: Nares patent. No nasal discharge, no septal abnormalities noted. Tympanic membranes are normal and external auditory canals are clear. Oropharynx with no redness, swelling, or masses, exudates, or evidence of obstruction, uvula midline. Mucous membranes moist. Neck: Trachea midline, no thyromegaly or masses palpated, and no cervical lymphadenopathy. Supple, full range of motion without nuchal rigidity, or vertebral point tenderness. Chest/axilla: Normal chest wall appearance and motion. Nontender with no deformity. No lesions are appreciated. Cardiovascular: Regular rate and rhythm with a normal S1 and S2. No gallops, murmurs, or rubs. Normal PMI, no JVD. No pulse deficits. Respiratory: Lungs have equal breath sounds bilaterally, clear to auscultation and percussion. No rales, rhonchi or wheezes noted. No increased work of breathing, no retractions or nasal flaring. Abdomen/GI: Soft, with normal bowel sounds. No distension or tympany. No guarding or rebound. No evidence of tenderness throughout. Back: No spinal tenderness. No costovertebral tenderness. Skin: Warm, dry with normal turgor. Normal color with no rashes, no lesions, and no evidence of cellulitis. MS/ Extremity: Pulses equal, no cyanosis. Neurovascular intact. Full, normal range of motion. Neuro: Awake and alert, GCS 15, oriented to person, place, time, and situation. Cranial nerves II-XII grossly intact. Motor strength 5/5 in all extremities. Sensory grossly intact. Psych: Awake, alert, with orientation to person, place and time. Behavior, mood, and affect are within normal limits 03:47 ECG was reviewed by the Attending Physician. 04:17 ECG was reviewed by the Attending Physician. EKG 0 358 -sinus rhythm rate 77. Left sp4 axis deviation left bundle branch block Vital Signs: 12/30 22:18 BP 148 / 88; Pulse 95; Resp 18; Temp 99.4; Pulse Ox 96% ; Weight 68.04 kg; Height 5 ft. vc1 0 in. ; Pain 7/10; 23:30 BP 118 / 57; Pulse 75; Resp 18; Temp 98.3; Pulse Ox 95% ; jj7 12/31 00:35 BP 109 / 43; Pulse 71; Resp 19; Pulse Ox 91% on R/A; jj7 01:00 BP 108 / 61; Pulse 69; Resp 28; Pulse Ox 93% on 2 lpm NC; jj7 02:00 BP 109 / 59; Pulse 72; Resp 22; Temp 97.7; Pulse Ox 95% on 2 lpm NC; jj7 03:00 BP 101 / 59; Pulse 80; Resp 19; Pulse Ox 93% ; jj7 04:00 BP 82 / 62; Pulse 76; Resp 22; Pulse Ox 98% ; jj7 05:00 BP 114 / 68; Pulse 79; Resp 22; Pulse Ox 99% on 2 lpm NC; Pain 0/10; jj7 06:00 BP 119 / 65; Pulse 78; Resp 20; Pulse Ox 99% ; Pain 0/10; jj7 12/30 22:18 Body Mass Index 29.29 (68.04 kg, 152.4 cm) vc1 12/30 22:18 Pain Scale: Adult vc1 05:00 Pain Scale: Adult jj7 06:00 Pain Scale: Adult jj7 Gisell Coma Score: 03:47 Eye Response: spontaneous(4). Motor Response: obeys commands(6). Verbal Response: sp4 oriented(5). Total: 15. MDM: 12/30 22:24 Patient medically screened. sp4 12/31 03:35 ED course: TIME OF STUDY: 12/31/2023 10:17 PM CDT REASON FOR EXAM: CHEST PAIN sp4 COMPARISON: None. FINDINGS: AP view of the chest was obtained, chest 1 view. Lungs: The lungs are adequately inflated. Dense airspace consolidation is noted within the right middle lobe. Patchy opacities are noted within the right lower lobe and left lung base.. Pleura: No pneumothorax. There is no pleural effusion. Heart and Mediastinum: Cardiac silhouette is prominent.. Probable hiatal hernia is noted. Bones: No acute bony abnormality.. Total left shoulder arthroplasty is noted. Cervical spine fixation hardware is noted. IMPRESSION: 1. Dense airspace opacity in the right middle lobe with patchy opacities in the bilateral lower lobes. These findings are consistent with multifocal pneumonia.. 03:54 Differential diagnosis: Anxiety Reaction asthma, Bronchitis CHF exacerbation, Chronic sp4 Obstructive Pulmonary Disease pneumonia. Antibiotic administration: Rocephin and Zithromax given, Vancomycin . Data reviewed: vital signs, nurses notes, EMS record, old medical records, lab test result(s), EKG, radiologic studies, plain films. ED course: Patient is stable for admission to telemetry floor.. 03:55 ED course: Sepsis reevaluation complete. 30 mL/kg septic fluid bolus is not indicated sp4 secondary to the fact that patient has congestive heart failure history. Fluid overload is a potential problem. Thus septic fluid bolus was not administered. Blood pressures are stable. 12/30 22:17 Order name: SARS RAPID; Complete Time: 03:34 sp4 12/30 22:17 Order name: Influenza Screen (a \T\ B); Complete Time: 03:34 [facility] 12/30 22:17 Order name: Basic Metabolic Panel; Complete Time: 03:34 [facility] 12/30 22:17 Order name: CBC with Diff; Complete Time: 03:34 [facility] 12/30 22:17 Order name: LFT's; Complete Time: 03:34 [facility] 12/30 22:17 Order name: Magnesium; Complete Time: 03:34 [facility] 12/30 22:17 Order name: NT PRO-BNP; Complete Time: 03:34 [facility] 12/30 22:17 Order name: PT-INR; Complete Time: 03:34 [facility] 12/30 22:17 Order name: Troponin HS; Complete Time: 03:34 [facility] 12/30 22:18 Order name: Blood Culture Adult (2) [facility] 12/30 22:18 Order name: Lactate w/ 2H reflex if indic.; Complete Time: 03:34 [facility] 12/31 01:59 Order name: CBC Smear Scan [facility] 12/31 03:34 Order name: Troponin High Sensitivity [facility] 12/31 04:33 Order name: Basic Metabolic Panel [facility] 12/31 04:33 Order name: Basic Metabolic Panel [facility] 12/31 04:33 Order name: CBC with Automated Diff [facility] 12/31 04:33 Order name: CBC with Automated Diff [facility] 12/30 22:17 Order name: XRAY Chest (1 view) [facility] 12/30 22:17 Order name: EKG; Complete Time: 22:18 [facility] 12/30 22:17 Order name: Cardiac monitoring; Complete Time: 23:03 [facility] 12/30 22:17 Order name: EKG - Nurse/Tech; Complete Time: 23:03 [facility] 12/30 22:17 Order name: IV Saline Lock; Complete Time: 23:03 [facility] 12/30 22:17 Order name: Labs collected and sent; Complete Time: 23:03 [facility] 12/30 22:17 Order name: O2 Per Protocol; Complete Time: 23:03 [facility] 12/30 22:17 Order name: O2 Sat Monitoring; Complete Time: 23:03 4 EC:17 Rate is 77 beats/min. Rhythm is regular, Sinus Rhythm. Left axis deviation noted. ID sp4 interval is normal. QRS interval is prolonged. No ST changes noted. Clinical impression: No evidence of ischemia. Interpreted by me. Reviewed by me. Administered Medications: 12/30 22:40 Drug: Acetaminophen PO 1000 mg PO once Route: PO; 23:47 Follow up: Response: Temperature is decreased j 22:50 Drug: Albuterol Inhalation 2.5 mg Inhalation once Route: Inhalation; j7 23:47 Follow up: Response: No adverse reaction 23:47 Follow up: Response: Marked relief of symptoms j 23:02 Not Given (Patient Refused): [id number] mg PO once j 23:07 Drug: Rocephin - Rocephin (cefTRIAXone) IVPB 1 grams IVPB once over 30 mins; (mix in 50 jj7 mL NS) Route: IVPB; Infused Over: 30 mins; Site: left antecubital; 23:45 Follow up: IV Status: Completed infusion 23:45 Drug: Zithromax IVPB 500 mg IVPB once over 1 hrs; mix in 250 mL NS Route: IVPB; Infused jj7 Over: 1 hrs; Site: left antecubital; 12/31 00:55 Follow up: IV Status: Completed infusion 04:37 Drug: NS 0.9% IV 1000 ml IV at 100 ml/hr continuous Route: IV; Rate: 100 ml/hr; Site: [facility] left antecubital; 07:20 Follow up: IV Status: Infusion continued upon admission bp 04:39 Drug: vancoMYCIN IVPB 1.5 grams IVPB at calculated rate once Route: IVPB; Rate: jj7 calculated rate; Site: left antecubital; 05:52 Follow up: IV Status: Completed infusion j 06:06 Drug: Famotidine IVP 20 mg IVP once; dilute with 10 mL 0.9% NaCl; give over 2 minutes j7 Route: IVP; Site: left antecubital; 07:20 Follow up: Response: No adverse reaction bp 06:06 Drug: Alum-Mag Hydroxide-Simeth PO Suspension (200 mg-200 mg-20 mg/5 mL) 30 ml PO once jj7 Route: PO; 07:20 Follow up: Response: No adverse reaction bp 06:06 Drug: Pantoprazole PO 40 mg PO once Route: PO; jj7 07:20 Follow up: Response: No adverse reaction bp Disposition Summary: 01/01/24 03:54 Hospitalization Ordered Notes: Hospitalization Status: Inpatient Admission sp4 Provider: Joaquin Tiwari sp4 Condition: Stable sp4 Problem: new sp4 Symptoms: have improved sp4 Bed/Room Type: Standard sp4 Location: Telemetry/MedSurg (Inpatient)(01/01/24 08:23) eb Room Assignment: 203(01/01/24 08:23) eb Diagnosis - Other pneumonia, unspecified organism sp4 - Acute multifocal pneumonia, acute sepsis, fever, elevated troponin , sepsis sp4 without septic shock - Hyponatremia sp4 Forms: - Medication Reconciliation Form sp4 - SBAR form sp4 - Leadership Thank You Letter sp4 Signatures: Dispatcher [employer] EDMS Lynette Alvarado, RN RN Sapna Villalpando Vanessa, RN RN vc1 Li Araujo RN RN jj7 Ziggy Vizcaino MD MD sp4 Castro Jackson RN bp Corrections: (The following items were deleted from the chart) 12/30 22:18 22:18 SARS-COV-2 Antigen Rapid+I.LAB.BRZ ordered. EDMS EDMS 22:18 22:18 Influenza Screen (A \T\ B)+BA.LAB.BRZ ordered. EDMS EDMS 22:18 22:18 BASIC METABOLIC PANEL+C.LAB.BRZ ordered. EDMS EDMS 22:18 22:18 CBC+H.LAB.BRZ ordered. EDMS EDMS 22:18 22:18 HEPATIC FUNCTION+C.LAB.BRZ ordered. EDMS EDMS 22:18 22:18 MAGNESIUM+C.LAB.BRZ ordered. EDMS EDMS 22:18 22:18 PROBNP+C.LAB.BRZ ordered. EDMS EDMS 22:18 22:18 PROTIME (+INR)+COAG.LAB.BRZ ordered. EDMS EDMS 22:18 22:18 Troponin High Sensitivity+C.LAB.BRZ ordered. EDMS EDMS 12/31 05:09 03:54 Telemetry/MedSurg (Inpatient) sp4 cg 05:09 03:54 sp4 cg 08:23 05:09 [facility] ER HOLD cg eb 08:23 05:09 ERHOLD- cg eb
--- NOTE | 2024-01-01 03:55 | ER ---
Nurse's Notes [facility] Name: Briana Downing Age: 68 yrs Sex: Female : 1955 Arrival Date: 12/31/2023 Time: 22:05 Bed 3 Private MD: Diagnosis: Other pneumonia, unspecified organism;Acute multifocal pneumonia, acute sepsis, fever, elevated troponin , sepsis without septic shock;Hyponatremia Presentation: 12/30 22:18 Chief complaint: EMS states: called for shortness of breath and low oxygenation. vc1 Coronavirus screen: Client denies travel out of the [place] in the last 14 days. fever, shortness of breath. Ebola Screen: Patient negative for fever greater than or equal to 101.5 degrees Fahrenheit, and additional compatible Ebola Virus Disease symptoms Patient denies exposure to infectious person. Patient denies travel to an Ebola-affected area in the 21 days before illness onset. No symptoms or risks identified at this time. Initial Sepsis Screen: Does the patient meet any 2 criteria? Temp <36.0*C (96.8*F)) or > 38.3*C (100.9*F). Altered Mental Status. HR > 90 bpm. Yes Does the patient have a suspected source of infection? No. Patient's initial sepsis screen is negative. Risk Assessment: Do you want to hurt yourself or someone else? Patient reports no desire to harm self or others. Onset of symptoms was December 31, 2023. Care prior to arrival: None. Activity prior to arrival: None. Mechanism of Injury: No Mechanism of Injury. Transition of care: patient was not received from another setting of care. 22:18 Method Of Arrival: EMS: [facility] vc1 22:18 Acuity: GER[place] 3 vc1 Triage Assessment: 22:28 General: Appears in no apparent distress. uncomfortable, Behavior is cooperative, vc1 anxious. Pain: Complains of pain in left hip Pain does not radiate. EENT: No deficits noted. No signs and/or symptoms were reported regarding the EENT system. Neuro: Level of Consciousness is awake, alert, obeys commands, Oriented to person, place, time, situation, Appropriate for age. Cardiovascular: Capillary refill < 3 seconds Patient's skin is warm and dry. Respiratory: Reports shortness of breath at rest Onset: The symptoms/episode began/occurred Since Tuesday, worse tonight, the patient has moderate shortness of breath. GI: Abdomen is round non-distended. : No deficits noted. No signs and/or symptoms were reported regarding the genitourinary system. Derm: Skin is intact, is healthy with good turgor, Skin is dry, Skin is normal, Skin temperature is warm. Historical: - Allergies: 22:26 No Known Allergies; vc1 - PMHx: 22:26 Anxiety; Depression; Hyperlipidemia; Hypertension; Hypothyroidism; Congestive heart vc1 failure; - PSHx: 22:26 None; vc1 - Immunization history:: Client reports receiving the 2nd dose of the Covid vaccine. - Infectious Disease History:: Denies. - Social history:: Smoking status: Patient denies any tobacco usage or history of. - Family history:: not pertinent. Screenin:28 [facility] ED Fall Risk Assessment (Adult) History of falling in the last 3 months, vc1 including since admission Yes- fall prone (multiple falls) (3 pts) Confusion or Disorientation Yes (5 pts) Intoxicated or Sedated Yes (3 pts) Impaired Gait Yes (1 pt) Mobility Assist Device Used No (0 pt) Altered Elimination No (0 pt) Score/Fall Risk Level 3 or more points = High Risk Oriented to surroundings, Maintained a safe environment, Educated pt \T\ family on fall prevention, incl call for assistance when getting out of bed. Abuse screen: Denies threats or abuse. Nutritional screening: No deficits noted. Tuberculosis screening: No symptoms or risk factors identified. Assessment: 22:30 General: Appears in no apparent distress. uncomfortable, Behavior is calm, cooperative, jj7 appropriate for age. Cardiovascular: Rhythm is regular. Respiratory: Reports shortness of breath at rest Airway is patent Trachea midline Respiratory effort is even, unlabored, Respiratory pattern is regular, symmetrical, Breath sounds are clear bilaterally. 23:00 Reassessment: Patient is alert, oriented x 3, equal unlabored respirations, skin jj7 warm/dry/pink. Patient states feeling better. Patient states symptoms have improved. 12/31 01:00 Reassessment: Patient is alert, oriented x 3, equal unlabored respirations, skin jj7 warm/dry/pink. PT RESTING COMFORTABLY IN BED. 02:00 Reassessment: No changes from previously documented assessment. [facility] Vital Signs: 12/30 22:18 BP 148 / 88; Pulse 95; Resp 18; Temp 99.4; Pulse Ox 96% ; Weight 68.04 kg; Height 5 ft. vc1 0 in. ; Pain 7/10; 23:30 BP 118 / 57; Pulse 75; Resp 18; Temp 98.3; Pulse Ox 95% ; j7 12/31 00:35 BP 109 / 43; Pulse 71; Resp 19; Pulse Ox 91% on R/A; j7 01:00 BP 108 / 61; Pulse 69; Resp 28; Pulse Ox 93% on 2 lpm NC; j7 02:00 BP 109 / 59; Pulse 72; Resp 22; Temp 97.7; Pulse Ox 95% on 2 lpm NC; j7 03:00 BP 101 / 59; Pulse 80; Resp 19; Pulse Ox 93% ; j7 04:00 BP 82 / 62; Pulse 76; Resp 22; Pulse Ox 98% ; j7 05:00 BP 114 / 68; Pulse 79; Resp 22; Pulse Ox 99% on 2 lpm NC; Pain 0/10; j7 06:00 BP 119 / 65; Pulse 78; Resp 20; Pulse Ox 99% ; Pain 0/10; 7 12/30 22:18 Body Mass Index 29.29 (68.04 kg, 152.4 cm) vc1 12/30 22:18 Pain Scale: Adult vc1 05:00 Pain Scale: Adult jj7 06:00 Pain Scale: Adult jj7 [place] Coma Score: 03:47 Eye Response: spontaneous(4). Motor Response: obeys commands(6). Verbal Response: sp4 oriented(5). Total: 15. ED Course: 12/30 22:16 Patient arrived in ED. vc1 22:17 Ziggy Vizcaino MD is Attending Physician. sp4 22:25 Triage completed. vc1 22:30 Patient has correct armband on for positive identification. Bed in low position. Call jj7 light in reach. Side rails up X2. Adult w/ patient. Provided Education on: USE OF CALL CORRIGAN. Client placed on continuous cardiac and pulse oximetry monitoring. NIBP monitoring applied. home organizer on. 22:45 Inserted saline lock: 20 gauge in left antecubital area, using aseptic technique. Blood sa1 collected. Flushed with 10 mL NS Missed attempt(s): 20 gauge in right antecubital area. 23:03 Lactate w/ 2H reflex if indic. Sent. jj7 23:03 Blood Culture Adult (2) Sent. jj7 23:03 Basic Metabolic Panel Sent. jj7 23:03 CBC with Diff Sent. jj7 23:03 LFT's Sent. jj7 23:03 Magnesium Sent. jj7 23:03 NT PRO-BNP Sent. jj7 23:03 PT-INR Sent. jj7 23:03 Troponin HS Sent. jj7 23:03 Influenza Screen (a \T\ B) Sent. jj7 23:03 SARS RAPID Sent. jj7 23:06 XRAY Chest (1 view) In Process Unspecified. EDMS 23:45 Li Araujo RN is Primary Nurse. jj7 12/31 00:41 Oxygen administration via nasal cannula \T\ 2L/min Response to oxygen therapy: symptoms jj7 improved. 03:53 Joaquin Tiwari MD is Hospitalizing Provider. sp4 07:03 Report given to JOHN LEVIN. jj7 07:59 No provider procedures requiring assistance completed. Patient admitted, IV remains in bp place. 08:00 Patient n/a. bp Administered Medications: 12/30 22:40 Drug: Acetaminophen PO 1000 mg PO once Route: PO; jj7 23:47 Follow up: Response: Temperature is decreased jj7 22:50 Drug: Albuterol Inhalation 2.5 mg Inhalation once Route: Inhalation; jj7 23:47 Follow up: Response: No adverse reaction jj7 23:47 Follow up: Response: Marked relief of symptoms jj7 23:02 Not Given (Patient Refused): mg PO once jj7 23:07 Drug: Rocephin - Rocephin (cefTRIAXone) IVPB 1 grams IVPB once over 30 mins; (mix in 50 jj7 mL NS) Route: IVPB; Infused Over: 30 mins; Site: left antecubital; 23:45 Follow up: IV Status: Completed infusion jj7 23:45 Drug: Zithromax IVPB 500 mg IVPB once over 1 hrs; mix in 250 mL NS Route: IVPB; Infused jj7 Over: 1 hrs; Site: left antecubital; 12/31 00:55 Follow up: IV Status: Completed infusion j7 04:37 Drug: NS 0.9% IV 1000 ml IV at 100 ml/hr continuous Route: IV; Rate: 100 ml/hr; Site: j left antecubital; 07:20 Follow up: IV Status: Infusion continued upon admission bp 04:39 Drug: vancoMYCIN IVPB 1.5 grams IVPB at calculated rate once Route: IVPB; Rate: jj7 calculated rate; Site: left antecubital; 05:52 Follow up: IV Status: Completed infusion jj7 06:06 Drug: Famotidine IVP 20 mg IVP once; dilute with 10 mL 0.9% NaCl; give over 2 minutes jj7 Route: IVP; Site: left antecubital; 07:20 Follow up: Response: No adverse reaction bp 06:06 Drug: Alum-Mag Hydroxide-Simeth PO Suspension (200 mg-200 mg-20 mg/5 mL) 30 ml PO once jj7 Route: PO; 07:20 Follow up: Response: No adverse reaction bp 06:06 Drug: Pantoprazole PO 40 mg PO once Route: PO; jj7 07:20 Follow up: Response: No adverse reaction bp Medication: 12/30 22:28 VIS not applicable for this client. vc1 Outcome: 12/31 03:54 Decision to Hospitalize by Provider. sp4 08:00 Admitted to ER Hold. Please see [facility] for further documentation. bp 08:00 Condition: stable 08:00 Instructed on the need for admit, 09:06 Patient left the ED. bp Signatures: Dispatcher [employer] EDMS Castro Jackson RN RN bp Michelle Estevez RN RN vc1 Li Araujo RN RN jZiggy Ashford MD MD sp4 Sultan edwige Mitchell Corrections: (The following items were deleted from the chart) 12/30 23:02 22:40 Ibuprofen PO 800 mg PO jj7 jj7 12/31 02:19 02:00 BP 109 / 59; Pulse 72bpm; Resp 22bpm; Pulse Ox 95%; jj7 jj7
[2024-01-01] MEDS ORDERED: NA CHLORIDE 0.9% 250 ML ONE ×2 (04:23→07:18)
[2024-01-01] MEDS ORDERED: VANCOMYCIN 500 MG/VIAL ONE (04:23)
[2024-01-01] MEDS ORDERED: VANCOMYCIN 1 GM/VIAL ONE (04:23)
--- NOTE | 2024-01-01 04:23 | P.HP ---
Certification for Inpatient Patient admitted to: Inpatient With expected LOS: >2 Midnights Practitioner: I am a practitioner with admitting privileges, knowledge of patient current condition, hospital course, and medical plan of care. Services: Services provided to patient in accordance with Admission requirements found in Title 42 Section 412.3 of the Code of Federal Regulations Patient History Date of Service: 01/01/24 Reason for admission: Shortness of breath altered mental status right lower lobe pneumonia History of Present Illness: Patient is 68 years of age daughter present at the bedside she has been having problems for the past week has become increasingly shortness of breath with disorientation the patient has also been falling has been incontinent waning of some chest discomfort and a cough. In the emergency room and was discharged has a right lower lobe pneumonia Allergies No Known Allergies Allergy (Verified 10/27/23 14:38) Home Medications: LORazepam [Lorazepam] 1 mg PO BID 09/01/16 Venlafaxine HCl [Effexor XR] 150 mg PO BID 09/01/16 Amiodarone HCl [Cordarone*] 400 mg PO BID #60 tab 09/04/16 Furosemide [Lasix] 40 mg PO DAILY #30 tab 09/04/16 Levothyroxine [Synthroid*] 0.112 mg PO [id number] #30 tab 09/04/16 Losartan Potassium 50 mg PO DAILY #30 tablet 09/04/16 Rivaroxaban [Xarelto] 20 mg PO DAILY #30 tab 09/04/16 carvediloL [Coreg*] 25 mg PO BID #60 tab 09/04/16 - Past Medical/Surgical History Diabetic: No -: HTN -: Hypothyroidism -: Depression with anxiety -: Tobacco abuse -: Osteoporosis -: Osteoarthritis -: L hip replacement -: L Rotator cuff -: Neck surgery -: Partial hysterectomy -: Cardiac cath Psychosocial/ Personal History: She is . She has 3 children. 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 - Family History Father -: Heart disease, Hypertension, Stroke, Cancer (Prostate can), Kidney disease (Kidney failure), Other (see notes) (Congestive heart blood) Mother -: Hypertension - Social History Alcohol use: Yes CD- Drugs: No Caffeine use: Yes Review of Systems General: Weakness, Other (Current falls) Respiratory: Cough, Shortness of Breath Physical Examination - Vital Signs Temperature: 99.4 F Blood Pressure: 148/88 Pulse: 95 Respirations: 18 Pulse Ox (%): 86 - Physical Exam General: Alert, Oriented x3 Neck: Supple Respiratory: Clear to auscultation bilaterally Cardiovascular: No edema, Normal pulses Gastrointestinal: Normal bowel sounds, Soft and benign Musculoskeletal: No clubbing, No swelling Integumentary: No rashes, No breakdown, No significant lesion Neurological: Normal strength at 5/5 x4 extr, Cranial nerves 3-12 intact External genitalia: No edema - Studies Laboratory Data (last 24 hrs) 12/31/23 12/31/23 12/31/23 22:45 22:45 22:45 WBC 16.70 H Hgb 12.2 Hct 36.7 Plt Count 269 PT 18.7 H INR 1.70 Sodium 127 L Potassium 3.8 BUN 16 Creatinine 1.04 H Glucose 106 Magnesium 2.0 Total Bilirubin 0.6 AST 74 H ALT 84 H Alkaline Phosphatase 80 Microbiology Data (last 24 hrs): 12/31/23 22:54 Nasopharnyx Influenza Type A Antigen Screen - Final 12/31/23 22:54 Nasopharnyx Influenza Type B Antigen Screen - Final Assessment and Plan - Problems (Diagnosis) (1) Pneumonia Current Visit: Yes Status: Acute Plan: Patient is 68 years of age has been sick for about a week with disorientation recurrent falls shortness of breath alcohol abuse former smoker history of diastolic heart failure recently had a cardiac cath done no significant coronary artery disease has high hypertension anxiety depression cardiac daughter she was also incontinent white count is elevated mildly hyponatremic otherwise hemodynamically stable x-ray shows a right lower lobe pneumonia plan to admit to the hospital start on antibiotics IV fluid history of A-fib on amiodarone and Lasix patient to Xarelto history of chronic diastolic heart failure start patient on some IV fluids likely she appears to be volume depleted Qualifiers: Aspiration pneumonia type: unspecified Laterality: right Lung location: l ower lobe of lung (2) Depression with anxiety Current Visit: Yes Status: Acute Plan: Is seeing a psychiatrist and takes lorazepam with BuSpar medications unavailable - Advance Directives Does patient have a Living Will: Yes Does patient have a Durable POA for Healthcare: No
[2024-01-01] MEDS ORDERED: NA CHLORIDE 0.9% 1,000 ML ONE ×2 (04:24→07:18)
[2024-01-01] MEDS ORDERED: FAMOTIDINE 20 MG/2 ML VIAL IV ONE (05:58)
[2024-01-01] MEDS ORDERED: PANTOPRAZOLE 40MG TABLET PO ONE (05:58)
[2024-01-01] MEDS ORDERED: MAGNES/ALUMIN/SIMET 30ML UCUP ONE (05:58)
[2024-01-01] MEDS: CEFTRIAXONE 1,000 MG in NA CHLORIDE 0.9% 50 ML IVPB ONE (07:00)
[2024-01-01] MEDS: NA CHLORIDE 0.9% 1,000 ML IV SCH (07:00)
[2024-01-01] MEDS: AZITHROMYCIN IV 500 MG in NA CHLORIDE 0.9% 250 ML IVPB ONE (07:00)
[2024-01-01] MEDS ORDERED: AZITHROMYCIN 500 MG INJ IVPB ONE (07:18)
--- NOTE | 2024-01-01 07:43 | RAD REPORT ---
TIME OF STUDY: 12/31/2023 10:17 PM CDT REASON FOR EXAM: CHEST PAIN COMPARISON: None. FINDINGS: AP view of the chest was obtained, chest 1 view. Lungs: The lungs are adequately inflated. Dense airspace consolidation is noted within the right midd le lobe. Patchy opacities are noted within the right lower lobe and left lung base.. Pleura: No pneumothorax. There is no pleural effusion. Heart and Mediastinum: Cardiac silhouette is prominent.. Probable hiatal hernia is noted. Bones: No acute bony abnormality.. Total left shoulder arthroplasty is noted. Cervical spine fixati on hardware is noted. IMPRESSION: 1. Dense airspace opacity in the right middle lobe with patchy opacities in the bilateral lower lobes . These findings are consistent with multifocal pneumonia. Electronically signed by: Goran Molina MD 12/31/2023 11:46 PM CDT RP Due to temporary technical issues with the PACS/Cotendo reporting system, reports are being julianna d by the in-house radiologist without review as a courtesy to ensure prompt reporting the interpreting radiologist is fully responsible for the content of the report. Transcribed Date/Time: 01/01/2024 7:43 AM
[2024-01-01 08:15] VITALS: BMI 29.2
[2024-01-01] MEDS: ONDANSETRON 4 MG/2 ML VIAL IV ONE (08:20)
[2024-01-01] MEDS ORDERED: ONDANSETRON 4 MG/2 ML VIAL ONE (08:20)
[2024-01-01] MEDS ORDERED: ACETAMINOPHEN 500 MG TAB PO PRN (10:04)
[2024-01-01] MEDS: FUROSEMIDE 40 MG/4 ML VIAL IV ONE (10:32)
[2024-01-01] MEDS: ACETAMINOPHEN 325 MG TABLET PO PRN (10:39)
[2024-01-01] MEDS: LORAZEPAM 1 MG TABLET PO SCH (12:25)
[2024-01-01 13:58] LABS: Albumin 1.9 g/dL (3.4-5.0); Anion Gap 8.4 mEq/L (5.0-15.0); Bilirubin Total 0.4 mg/dL (0.2-1.0); Phosphorus 2.2 mg/dL (2.5-4.9); Potassium 3.4 mEq/L (3.5-5.1); Protein, Total 5.6 g/dL (6.4-8.2)
[2024-01-01 13:59] LABS: Albumin/Globulin Ratio 0.5 (1.1-1.8); Globulin 3.7 g/dL (2.3-3.5); Magnesium 1.8 mg/dL (1.6-2.4)
[2024-01-01 14:03] LABS: Troponin High Sensitivity 59.1 pg/mL (<58.9)
[2024-01-01] MEDS: FUROSEMIDE 40 MG/4 ML VIAL IV SCH (16:35)
[2024-01-01] MEDS: VENLAFAXINE HCL 75 MG TABLET PO SCH (20:19)
[2024-01-01] MEDS: SACUBITRIL/VALSARTAN 24/26 MG TAB PO SCH (20:19)
[2024-01-01] MEDS: CEFEPIME 1 GM in NA CHLORIDE 0.9% 100 ML IV SCH (20:20)
[2024-01-01] MEDS ORDERED: ALBUTEROL 2.5 MG/3 ML NEB SOL NEB PRN ×2 (20:38→22:24)
[2024-01-01] MEDS ORDERED: LORAZEPAM 1 MG TABLET PO SCH (21:00)
[2024-01-01] MEDS: QUETIAPINE 25 MG TAB ONE (22:12)
[2024-01-01] MEDS: QUETIAPINE 25 MG TAB PO SCH (22:17)
--- NOTE | 2024-01-01 22:17 | RAD REPORT ---
EXAMINATION: ONE VIEW CHEST XR CLINICAL INDICATION: Female, 68 years old.SOB TECHNIQUE: 1 View, AP supine, X-ray of the chest was performed. [id number]. COMPARISON: No prior exam. FINDINGS: Lungs and pleura: Patchy and partially consolidative airspace disease present in the lung bases. Aera tion at the left lung base has worsened from prior. No effusion. Heart and mediastinum: Cardiac murmur. Unremarkable mediastinal contours. Osseous structures: No acute abnormality. Left shoulder arthroplasty. ACDF in the cervical spine. Tubes/lines: None Other: None. IMPRESSION: Bibasilar airspace disease which has worsened on the left from prior, is concerning for pneumonia.
[2024-01-01] MEDS: IPRATROPIUM BROM 0.5MG/2.5ML NEB PRN (22:20)
[2024-01-01] MEDS: LEVALBUTEROL 1.25 MG/3 ML NEB NEB PRN (22:20)
[2024-01-01 22:55] LABS: Arterial Blood Carboxyhemoglob 0.5 % (0-1.5); Blood Gas THB 14.5 g/dl (12-18); Blood O2 Saturation 90.3 % (92-98.5)
[2024-01-02 06:55] LABS: Absolute Lymphocytes (CBC) 0.5 K/uL (0.7-4.9); Absolute Monocytes 0.5 K/uL (0.1-1.3); Absolute Neutrophil 10.8 K/uL (1.8-8.0); Basophils % 0.1 % (0-1.3); Hematocrit 32.5 % (36.0-45.0); Lymphocytes % 3.9 % (15.3-44.8); MCH 30.6 pg (27.0-35.0); MCHC 33.8 g/dL (32.0-36.0); MCV 90.6 fL (80-100); MPV 8.3 fL (7.6-11.3); Monocytes % 4.3 % (3.3-12.3); Neutrophils % 91.7 % (41.7-73.7); Platelets 250 thou/uL (152-406); RBC Red Blood Cell Count 3.58 M/uL (3.86-4.86); Red Cell Distribution Width 15.1 % (12.1-15.2)
--- NOTE | 2024-01-02 07:03 | P.PN ---
Date of Service: 01/02/24 subjective 85% on room air, currently on 4 L per nasal cannula Review of Systems 10 point review of system negative unless listed in HPI Physical Examination - Vital Signs Reviewed - Physical Exam General: Alert, In no apparent distress, Oriented x3, Cooperative HEENT: Atraumatic, Normocephalic, PERRLA, Mucous membr. moist/pink, EOMI Neck: Supple Respiratory: Clear to auscultation bilaterally, Normal air movement Cardiovascular: Normal pulses, Regular rate/rhythm Gastrointestinal: Normal bowel sounds, Soft and benign, Non-distended, No ascites, No tenderness, No masses, No rebound, No guarding Musculoskeletal: No erythema, No tenderness, No warmth Integumentary: No tenderness/swelling, No erythema, No warmth, No cyanosis Neurological: Normal speech, Normal strength at 5/5 x4 extr, Normal tone, Normal affect Other Physical/Emotional Findings: Patient seen at 8:00 a.m. on 09/01/2016 Assessment and Plan - Problems (Diagnosis) Acute hypoxic hypercarbic respiratory failure secondary to pneumonia Pneumonia Pulmonary consult Chest x-ray bibasilar airspace disease worse on the left from prior Nebs, cefepime, azithromycin NSTEMI Elevated BNP Acute chronic diastolic heart failure Chronic anticoagulation recently had a cardiac cath done no significant coronary artery disease Telemetry Resume diuretic On Entresto Recurrent falls Fall precaution, PT eval Hyponatremia Gentle hydration Depression Uncontrolled anxiety Resume appropriate home meds Effexor, Seroquel Follow-up with outpatient psychiatry - Advance Directives Does patient have a Living Will: No Does patient have a Durable POA for Healthcare: No - Code Status/Comfort Care Code Status Assessed: Yes Code Status: Do Not Resuscitate Time Spent Managing Pts Care (In Minutes): 35 <Yaima Koehler - Last Filed: 01/02/24 07:03> Pt seen and examined. I agree with the note by the FILM CASTING OPERATOR. Continue cefepime for pna. Pt recently had Cardiac cath without any coronary artery disease. Continue home meds for other chronic medical problems. <Alan Barrow - Last Filed: 01/02/24 13:26>
[2024-01-02 07:04] LABS: Anion Gap 9.2 mEq/L (5.0-15.0); Potassium 3.2 mEq/L (3.5-5.1)
[2024-01-02] MEDS ORDERED: CEFTRIAXONE 1,000 MG in NA CHLORIDE 0.9% 50 ML IVPB SCH (09:00)
[2024-01-02] MEDS ORDERED: AZITHROMYCIN IV 500 MG in NA CHLORIDE 0.9% 250 ML IVPB SCH (09:00)
[2024-01-02] MEDS: POTASSIUM CL SA 10 MEQ TAB PO SCH (09:19)
[2024-01-02] MEDS: PANTOPRAZOLE 40MG TABLET PO SCH (10:07)
--- NOTE | 2024-01-02 10:19 | EKG ---
Test Date: 2024-01-01 Test Time: 03:58:57 Revenue Accounting Manager: CHELI MEASUREMENT RESULTS: Intervals: Rate: 77 CT: 180 QRSD: 164 QT: 464 QTc: 525 Arnett: P: 58 CT: 180 QRS: -48 T: 107 INTERPRETIVE STATEMENTS: Normal sinus rhythm Possible Left atrial enlargement Left axis deviation Left bundle branch block Abnormal ECG Compared to ECG 12/28/2023 18:05:53 No significant changes Electronically Signed On 01-02-24 10:18:40 CDT by Prasanth Zuniga
[2024-01-02] MEDS: CEFEPIME 2 GM in NA CHLORIDE 0.9% 100 ML IV SCH (10:51)
[2024-01-02] MEDS: LEVALBUTEROL 1.25 MG/3 ML NEB NEB PRN (17:07)
[2024-01-02] MEDS: OXYBUTYNIN ER 5 MG TAB PO PRN (21:58)
[2024-01-02] MEDS: METOPROLOL TARTRATE 5 MG/5 ML INJ IV STA (23:38)
[2024-01-02] MEDS: METOPROLOL TARTRATE 5 MG/5 ML INJ IV ONE (23:40)
[2024-01-03] MEDS: AMIODARONE HCL 200 MG TAB PO SCH (00:22)
--- NOTE | 2024-01-03 06:54 | P.PN ---
Date of Service: 01/03/24 subjective Rapid response called due to A-fib RVR heart rate in the 170s Consulted cardiology, patient treated with IV amiodarone push, started on amiodarone drip transferred to ICU for closer monitoring Review of Systems 10 point review of system negative unless listed in HPI Physical Examination - Vital Signs Reviewed - Physical Exam General: Alert, In no apparent distress, Oriented x3, Cooperative HEENT: Atraumatic, Normocephalic, PERRLA, Mucous membr. moist/pink, EOMI Neck: Supple Respiratory: Clear to auscultation bilaterally, Normal air movement Cardiovascular: Normal pulses, irrregular rate/rhythm, uncontrolled rate Gastrointestinal: Normal bowel sounds, Soft and benign, Non-distended, Musculoskeletal: No erythema, No tenderness, No warmth Integumentary: No tenderness/swelling, No erythema, No warmth, No cyanosis Neurological: Normal speech, Normal strength at 5/5 x4 extr, Normal tone, Normal affect Assessment and Plan - Problems (Diagnosis) Acute hypoxic hypercarbic respiratory failure secondary to pneumonia Pneumonia Pulmonary consult Chest x-ray bibasilar airspace disease worse on the left from prior Nebs, cefepime, azithromycin COVID-negative New onset A-fib RVR Transferred to ICU on amiodarone drip Cardiology consult, echo ordered NSTEMI Elevated BNP Acute chronic diastolic heart failure Chronic anticoagulation recently had a cardiac cath done no significant coronary artery disease Telemetry Resume diuretic On Entresto, and amiodarone Echo ordered, cardiology consulted Recurrent falls Fall precaution, PT eval Transaminitis Trend liver enzymes, on Entresto Hyponatremia Hypokalemia Gentle hydration Trend electrolytes replace as needed Depression Uncontrolled anxiety Resume appropriate home meds Effexor, Seroquel Follow-up with outpatient psychiatry - Advance Directives Does patient have a Living Will: No Does patient have a Durable POA for Healthcare: No - Code Status/Comfort Care Code Status Assessed: Yes Code Status: Do Not Resuscitate Time Spent Managing Pts Care (In Minutes): 65-Patient seen on the floor, transferred to ICU Patient in ICU
[2024-01-03] MEDS: FUROSEMIDE 40 MG/4 ML VIAL IV SCH (07:10)
[2024-01-03 07:19] LABS: Absolute Lymphocytes (CBC) 0.8 K/uL (0.7-4.9); Absolute Monocytes 0.4 K/uL (0.1-1.3); Absolute Neutrophil 6.3 K/uL (1.8-8.0); Basophils % 0.2 % (0-1.3); Eosinophils % 0.6 % (0-4.4); Hematocrit 32.4 % (36.0-45.0); Hemoglobin 11.1 g/dL (12.0-15.0); MCH 30.6 pg (27.0-35.0); MCHC 34.3 g/dL (32.0-36.0); MCV 89.2 fL (80-100); MPV 8.2 fL (7.6-11.3); Monocytes % 5.6 % (3.3-12.3); Neutrophils % 83.6 % (41.7-73.7); Nucleated Red Blood Cells % 0.1 % (0-0); Platelets 261 thou/uL (152-406); RBC Red Blood Cell Count 3.64 M/uL (3.86-4.86)
[2024-01-03 07:40] LABS: Magnesium 1.9 mg/dL (1.6-2.4)
[2024-01-03 07:42] LABS: Albumin 1.7 g/dL (3.4-5.0); Albumin/Globulin Ratio 0.5 (1.1-1.8); Anion Gap 6.6 mEq/L (5.0-15.0); Bilirubin Total 0.3 mg/dL (0.2-1.0); Globulin 3.5 g/dL (2.3-3.5); Potassium 3.6 mEq/L (3.5-5.1); Protein, Total 5.2 g/dL (6.4-8.2)
[2024-01-03 07:45] LABS: Troponin High Sensitivity 73.3 pg/mL (<58.9)
[2024-01-03] MEDS: POTASSIUM 25 MEQ EFFERV TAB ONE ×2 (09:27→09:36)
[2024-01-03] MEDS: POTASSIUM 25 MEQ EFFERV TAB PO ONE (09:32)
--- NOTE | 2024-01-03 10:38 | ECHO ---
HEIGHT: 5 ft 0 in WEIGHT: 150 lb 0 oz DATE OF STUDY: 01/03/[address]: Yaima Koehler INSPECTOR AND MENDERVida 2-DIMENSIONAL: YES M.MODE: YES DOPPLER: YES COLOR FLOW: YES TDS: PORTABLE: YES DEFINITY: BUBBLE STUDY: DIAGNOSIS: NON ST ELEVATION MYOCARDIAL INFARCTION CARDIAC HISTORY: CATHERIZATION: NO SURGERY: NO PROSTHETIC VALVE: NO PACEMAKER: NO MEASUREMENTS (cm) DIASTOLIC (NORMALS) SYSTOLIC (NORMALS) IVSd 1.1 (0.6-1.2) LA Diam 4.3 (1.9-4.0) LVEF 40-45% LVIDd 4.7 (3.5-5.7) LVIDs 4.0 (2.0-3.5) %FS 15% LVPWd 1.3 (0.6-1.2) Ao Diam 2.4 (2.0-3.7) 2 DIMENSIONAL ASSESSMENT: RIGHT ATRIUM: NORMAL LEFT ATRIUM: NORMAL RIGHT VENTRICLE: NORMAL LEFT VENTRICLE: NORMAL TRICUSPID VALVE: MILD TRICUSPID REGURGITATION MITRAL VALVE: NORMAL PULMONIC VALVE: NORMAL AORTIC VALVE: MILD AORTIC REGURGITATION PERICARDIAL EFFUSION: NONE AORTIC ROOT: NORMAL LEFT VENTRICULAR WALL MOTION: MILD GLOBAL HYPOKINESIS DOPPLER/COLOR FLOW: NORMAL COMMENTS: 1. MILDLY REDUCED LEFT VENTRICULAR SYSTOLIC FUCNTION, EJECTION FRACTION 40-45%, MILD GLOBAL HYPOKINESIS (MORE SIGNIFICANT IN INFERO-SEPTAL/ INFERO-LATERAL HEARD) 2. MILD ELEVATED FILLING PRESSURE (RIGHT ATRIAL PRESSURE 5-10 mmHg) TECHNOLOGIST: ABDULKADIR MAGAÑA
[2024-01-03] MEDS: AMIODARONE HCL 900 MG in Dextrose 5%-Water 482 ML IV SCH (10:52)
[2024-01-03 11:21] LABS: Thyroid Stimulating Hormone 0.21 uIU/mL (0.358-3.740)
--- NOTE | 2024-01-03 11:48 | P.CNS ---
Date of Consult: 01/03/24 Chief Complaint: Shortness of breath altered mental status right lower lobe pneumonia History of Present Illness: Patient with PMH of atrial fibrillation, mild CAD presented with generalized weakness, fatigue, SOB, denies any chest pain, no palpitations, no dizzy spells, no syncope. Allergies No Known Allergies Allergy (Verified 10/27/23 14:38) Home Medications: LORazepam [Lorazepam] 1 mg PO BID 09/01/16 Venlafaxine HCl [Effexor XR] 2 cap PO DAILY 09/01/16 Amiodarone HCl [Cordarone*] 400 mg PO DAILY 01/01/24 Buspirone HCl 1 tab PO BID 01/01/24 Cyclobenzaprine HCl [Flexeril] 1 tab PO TID PRN 01/01/24 Furosemide [Lasix] 1 tab PO DAILY 01/01/24 Levothyroxine Sodium 1 tab PO DAILY 01/01/24 Liothyronine Sodium [Cytomel] 1 tab PO DAILY 01/01/24 Meclizine HCl 1 tab PO Q8H PRN 01/01/24 Rivaroxaban [Xarelto] 20 mg PO BEDTIME 01/01/24 Sacubitril/Valsartan [Entresto 24 mg-26 mg Tablet] 1 tab PO Q12H 01/01/24 buPROPion HCL [Bupropion Xl] 1 tab PO DAILY 01/01/24 oxyBUTYnin chloride [Ditropan Xl] 5 mg PO DAILY PRN 01/02/24 - Past Medical/Surgical History Diabetic: No -: HTN -: Hypothyroidism -: Depression with anxiety -: Tobacco abuse -: Osteoporosis -: Osteoarthritis -: L hip replacement -: L Rotator cuff -: Neck surgery -: Partial hysterectomy -: Cardiac cath Psychosocial/ Personal History: She is . She has 3 children. 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 moist/pink, EOMI, Sclerae nonicteric Neck: Supple, 2+ carotid pulse no bruit, No LAD, Without JVD or thyroid abnormality Respiratory: Clear to auscultation bilaterally, Normal air movement Cardiovascular: Edema, Irregular heart rate/rhythm Gastrointestinal: Normal bowel sounds, No tenderness Musculoskeletal: No tenderness Integumentary: No rashes Neurological: Normal gait, Normal speech, Normal tone, Normal affect Lymphatics: No axilla or inguinal lymphadenopathy - Problems (1) Troponin level elevated Current Visit: Yes Status: Acute Plan: recent coronary angiogram shows mild CAD. most likely type 2 [place] from AF and PNA. (2) Atrial fibrillation Current Visit: No Status: Acute Plan: Patient went into RVR this morning, Amiodarone 10 mg IV x 1 was given. Continue Amiodarone drip. Heparin drip Qualifiers: Atrial fibrillation type: unspecified Qualified Code(s): I48.91 - Unspecified atrial fibrillation (3) CHF (congestive heart failure) Onset Date: 09/01/16 Current Visit: No Status: Suspected Plan: Echo shows mild elevated filling pressure with diastolic dysfunction continue Lasix 40 mg IV TID continue Entresto Lopressor 25 mg po BID monitor input and output and electrolytes. Qualifiers: Qualified Code(s): I50.21 - Acute systolic (congestive) heart failure
[2024-01-03] MEDS: ALBUMIN HUMAN 25% 100 ML IV SCH (13:24)
[2024-01-03] MEDS ORDERED: AMIODARONE HCL 200 MG TAB PO SCH (23:59)
[2024-01-04 06:38] LABS: Absolute Eosinophils 0.1 K/uL (0-0.5); Absolute Lymphocytes (CBC) 0.9 K/uL (0.7-4.9); Absolute Monocytes 0.4 K/uL (0.1-1.3); Absolute Neutrophil 5.8 K/uL (1.8-8.0); Basophils % 0.3 % (0-1.3); Eosinophils % 1.7 % (0-4.4); Hematocrit 36.7 % (36.0-45.0); Hemoglobin 12.4 g/dL (12.0-15.0); Lymphocytes % 12.5 % (15.3-44.8); MCH 30.2 pg (27.0-35.0); MCHC 33.8 g/dL (32.0-36.0); MCV 89.4 fL (80-100); MPV 8.6 fL (7.6-11.3); Monocytes % 6.1 % (3.3-12.3); Neutrophils % 79.4 % (41.7-73.7); Platelets 304 thou/uL (152-406)
[2024-01-04 07:09] LABS: Magnesium 1.9 mg/dL (1.6-2.4); Troponin High Sensitivity 47.9 pg/mL (<58.9)
[2024-01-04 07:12] LABS: Albumin 2.4 g/dL (3.4-5.0); Albumin/Globulin Ratio 0.6 (1.1-1.8); Anion Gap 9.7 mEq/L (5.0-15.0); Bilirubin Total 0.5 mg/dL (0.2-1.0); Globulin 3.9 g/dL (2.3-3.5); Potassium 2.7 mEq/L (3.5-5.1); Protein, Total 6.3 g/dL (6.4-8.2)
[2024-01-04] MEDS: KCL 20 MEQ/100 mL IVPB 20 MEQ/100 ML BAG IV SCH (09:24)
[2024-01-04] MEDS ORDERED: SACUBITRIL/VALSARTAN 24/26 MG TAB PO SCH (09:45)
[2024-01-04] MEDS: NA CHLORIDE 0.9% 250 ML ONE (10:23)
[2024-01-04] MEDS: AMIODARONE HCL 200 MG TAB PO SCH (10:24)
--- NOTE | 2024-01-04 12:12 | P.PN ---
Subjective Date of Service: 01/04/24 Chief Complaint: Shortness of breath altered mental status right lower lobe pneumonia Subjective: No new changes, No C/O voiced, Tolerating diet, Ambulating, Improving Review of Systems 10-point ROS is otherwise unremarkable Physical Examination - Vital Signs Temperature: 98.4 F Blood Pressure: 100/82 Pulse: 88 Respirations: 29 Pulse Ox (%): 91 - Physical Exam General: Alert, In no apparent distress HEENT: Atraumatic, PERRLA, EOMI Neck: Supple, JVD not distended Respiratory: Clear to auscultation bilaterally, Normal air movement Cardiovascular: Regular rate/rhythm, Normal S1 S2 Gastrointestinal: Normal bowel sounds, No tenderness Musculoskeletal: No tenderness Integumentary: No rashes Neurological: Normal speech, Normal tone, Normal affect Lymphatics: No axilla or inguinal lymphadenopathy - Studies Medications List Reviewed: Yes Assessment And Plan - Current Problems (Diagnosis) (1) Troponin level elevated Current Visit: Yes Status: Acute Plan: recent coronary angiogram shows mild CAD. most likely type 2 [place] from AF and PNA. (2) Atrial fibrillation Current Visit: No Status: Acute Plan: Patient is alternating sinus with atrial fibrillation, switch Amiodarone to 200 mg po BID D/C drip Heparin drip Qualifiers: Atrial fibrillation type: unspecified Qualified Code(s): I48.91 - Unspecified atrial fibrillation (3) CHF (congestive heart failure) Onset Date: 09/01/16 Current Visit: No Status: Suspected Plan: Echo shows mild elevated filling pressure with diastolic dysfunction continue Lasix 40 mg IV TID continue Entresto Lopressor 25 mg po BID monitor input and output and electrolytes. Qualifiers: Qualified Code(s): I50.21 - Acute systolic (congestive) heart failure
[2024-01-04] MEDS: POTASSIUM CL SA 10 MEQ TAB PO ONE (17:58)
[2024-01-04] MEDS: FUROSEMIDE 40 MG/4 ML VIAL IV SCH (17:59)
[2024-01-05 06:34] LABS: Absolute Eosinophils 0.2 K/uL (0-0.5); Absolute Lymphocytes (CBC) 1.3 K/uL (0.7-4.9); Absolute Monocytes 0.7 K/uL (0.1-1.3); Absolute Neutrophil 5.2 K/uL (1.8-8.0); Basophils % 0.6 % (0-1.3); Hematocrit 36.9 % (36.0-45.0); Hemoglobin 12.3 g/dL (12.0-15.0); Lymphocytes % 17.9 % (15.3-44.8); MCH 29.8 pg (27.0-35.0); MCHC 33.3 g/dL (32.0-36.0); MCV 89.6 fL (80-100); MPV 8.4 fL (7.6-11.3); Monocytes % 9.1 % (3.3-12.3); Neutrophils % 69.4 % (41.7-73.7); Platelets 326 thou/uL (152-406); RBC Red Blood Cell Count 4.12 M/uL (3.86-4.86); Red Cell Distribution Width 14.7 % (12.1-15.2)
[2024-01-05 06:52] LABS: Troponin High Sensitivity 31.6 pg/mL (<58.9)
[2024-01-05 06:53] LABS: Albumin 2.2 g/dL (3.4-5.0); Albumin/Globulin Ratio 0.6 (1.1-1.8); Anion Gap 7.1 mEq/L (5.0-15.0); Bilirubin Total 0.4 mg/dL (0.2-1.0); Potassium 3.1 mEq/L (3.5-5.1); Protein, Total 6.2 g/dL (6.4-8.2)
[2024-01-05] MEDS: PANTOPRAZOLE 40MG TABLET PO SCH (08:47)
[2024-01-05] MEDS: DOCUSATE NA 100 MG CAP PO SCH (11:22)
--- NOTE | 2024-01-05 12:50 | P.PN ---
Subjective Date of Service: 01/05/24 Chief Complaint: Shortness of breath altered mental status right lower lobe pneumonia Subjective: No new changes, No C/O voiced, Tolerating diet, Ambulating, Improving Review of Systems 10-point ROS is otherwise unremarkable Physical Examination - Vital Signs Temperature: 97.7 F Blood Pressure: 150/79 Pulse: 81 Respirations: 21 Pulse Ox (%): 94 - Physical Exam General: Alert, In no apparent distress HEENT: Atraumatic, PERRLA, EOMI Neck: Supple, JVD not distended Respiratory: Clear to auscultation bilaterally, Normal air movement Cardiovascular: Regular rate/rhythm, Normal S1 S2 Gastrointestinal: Normal bowel sounds, No tenderness Musculoskeletal: No tenderness Integumentary: No rashes Neurological: Normal speech, Normal tone, Normal affect Lymphatics: No axilla or inguinal lymphadenopathy - Studies Medications List Reviewed: Yes Assessment And Plan - Current Problems (Diagnosis) (1) Troponin level elevated Current Visit: Yes Status: Acute Plan: recent coronary angiogram shows mild CAD. most likely type 2 [place] from AF and PNA. (2) Atrial fibrillation Current Visit: No Status: Acute Plan: Patient is now in sinus tachycardia, Amiodarone to 200 mg po BID Xarelto 20 mg daily add Lopressor 25 mg po BID continue to monitor on tele Qualifiers: Atrial fibrillation type: unspecified Qualified Code(s): I48.91 - Unspecified atrial fibrillation (3) CHF (congestive heart failure) Onset Date: 09/01/16 Current Visit: No Status: Suspected Plan: Echo shows mild elevated filling pressure with diastolic dysfunction continue Lasix 40 mg IV TID continue Entresto Lopressor 25 mg po BID add Spirnolactone 25 mg daily monitor input and output and electrolytes. Qualifiers: Qualified Code(s): I50.21 - Acute systolic (congestive) heart failure
[2024-01-05] MEDS: METOPROLOL TAR 25 MG TAB PO SCH (16:29)
[2024-01-06 07:02] LABS: Albumin 2.2 g/dL (3.4-5.0); Albumin/Globulin Ratio 0.6 (1.1-1.8); Anion Gap 6.9 mEq/L (5.0-15.0); Bilirubin Total 0.4 mg/dL (0.2-1.0); Potassium 2.9 mEq/L (3.5-5.1); Protein, Total 6.2 g/dL (6.4-8.2)
[2024-01-06] MEDS ORDERED: HOME MED 1 EA UNK (Meclizine Hcl [Meclizine Hcl] 25 MG Tablet) PO PRN (10:17)
[2024-01-06] MEDS ORDERED: MECLIZINE HCL 12.5 MG TAB PO PRN (10:25)
[2024-01-06] MEDS ORDERED: VENLAFAXINE HCL XR 75 MG CAP PO SCH (11:00)
[2024-01-06] MEDS: POTASSIUM PHOS 30 MM in NA CHLORIDE 0.9% 500 ML IV ONE (12:34)
[2024-01-06] MEDS: POTASSIUM CL SA 10 MEQ TAB PO ONE (13:00)
--- NOTE | 2024-01-06 16:43 | EKG ---
Test Date: 2024-01-03 Test Time: 10:16:40 Biscuit Maker: COLEEN MEASUREMENT RESULTS: Intervals: Rate: 103 [place]: 178 QRSD: 158 QT: 372 QTc: 487 [place]: P: 55 [place]: 178 QRS: -57 T: 111 INTERPRETIVE STATEMENTS: Sinus tachycardia Left axis deviation Left ventricular hypertrophy with QRS widening and repolarization abnormality Possible Lateral infarct, age undetermined Abnormal ECG Compared to ECG 01/03/2024 10:05:38 No significant changes Electronically Signed On 01-06-24 16:34:41 CDT by Kei Valente
--- NOTE | 2024-01-06 16:43 | EKG ---
Test Date: 2024-01-03 Test Time: 10:05:38 Application Development Project Manager: COLEEN MEASUREMENT RESULTS: Intervals: Rate: 162 [place]: QRSD: 160 QT: 292 QTc: 479 [place]: P: [place]: QRS: -60 T: 110 INTERPRETIVE STATEMENTS: Afib with RVR Left axis deviation Left bundle-branch block Left ventricular hypertrophy with QRS widening and repolarization abnormality Possible Lateral infarct, age undetermined Abnormal ECG Compared to ECG 01/01/2024 03:58:57 Left ventricular hypertrophy now present Early repolarization now present Myocardial infarct finding now present Sinus rhythm no longer present Electronically Signed On 01-06-24 16:35:18 CDT by Kei Valente
[2024-01-06] MEDS: POTASSIUM CL SA 10 MEQ TAB PO SCH (20:23)
[2024-01-06] MEDS: RIVAROXABAN 20 MG TABLET PO SCH (20:23)
[2024-01-07] MEDS: LEVOTHYROXINE SOD 0.05 MG TABLET PO SCH (05:56)
[2024-01-07] MEDS: LIOTHYRONINE SOD 25 MCG TAB PO SCH (05:56)
[2024-01-07] MEDS ORDERED: HOME MED 1 EA UNK (Venlafaxine Hcl [Effexor Xr] 150 MG Cap.Er.24h) PO SCH (09:00)
[2024-01-07] MEDS: VENLAFAXINE HCL XR 75 MG CAP PO SCH (09:13)
[2024-01-07 10:00] LABS: Magnesium 2.1 mg/dL (1.6-2.4); Potassium 3.4 mEq/L (3.5-5.1)
[2024-01-07 16:22] VITALS: O2SAT 90
[2024-01-07 17:50] VITALS: BP 153/72; TEMP 97.3
== END 2024-01-07 18:00 | disposition home or self-care (01) | DRG 871 ==
LOC: ER 22:05 → ERHOLD 01-01 04:28 → 2ND 01-01 08:30 → 3RD-ICU 01-03 10:25 → 4TH 01-04 18:56
PROVIDERS: ADMIT Internal Medicine Sleep Medicine; ATTEND Hospitalist
PROC: 4A033R1 Measurement of Arterial Saturation, Peripheral, Percutaneous Approach (ICD-10-PCS; principal; 2024-01-01)
PROC: 5A09457 Assistance with Respiratory Ventilation, 24-96 Consecutive Hours, Continuous Positive Airway Pressure (ICD-10-PCS; 2024-01-03)
DX: A41.9 Sepsis, unspecified organism (principal); I21.A1 Myocardial infarction type 2; J69.0 Pneumonitis due to inhalation of food and vomit; J96.01 Acute respiratory failure with hypoxia; J96.02 Acute respiratory failure with hypercapnia; I50.33 Acute on chronic diastolic (congestive) heart failure; E87.1 Hypo-osmolality and hyponatremia; I11.0 Hypertensive heart disease with heart failure; R65.20 Severe sepsis without septic shock; E78.5 Hyperlipidemia, unspecified; F41.8 Other specified anxiety disorders; E87.6 Hypokalemia; I48.91 Unspecified atrial fibrillation; E03.9 Hypothyroidism, unspecified; M19.90 Unspecified osteoarthritis, unspecified site; I44.7 Left bundle-branch block, unspecified; F17.200 Nicotine dependence, unspecified, uncomplicated; R74.01 Elevation of levels of liver transaminase levels; Z66 Do not resuscitate; Z63.5 Disruption of family by separation and divorce; Z11.52 Encounter for screening for COVID-19; Z79.01 Long term (current) use of anticoagulants; Z79.02 Long term (current) use of antithrombotics/antiplatelets; Z79.890 Hormone replacement therapy; Z96.642 Presence of left artificial hip joint; Z79.899 Other long term (current) drug therapy
CPT/HCPCS: 36415; 36600; 71045; 80048; 80053; 80076; 82805; 82947; 83605; 83735; 83880; 84100; 84132; 84145; 84439; 84443; 84484; 85025; 85610; 87040; 87804; 87811; 93005; 93306; 94010; 94640; 94660; 94760; 96361; 96365; 96367; 96375; 97116; 97161; 97530; 99285; J0282; J0692; J0696; J1940; J2405; J3480; J7030; J7040; J7050; J7060; J7613; J7614; J7644; P9047